=== PATIENT | female | born 1950 | race Caucasian/White ===

== ENCOUNTER → 2020-06-22 10:10 | Outpatient (BNVA) | payer MEDICARE, MEDICAID, SELFPAY | PROVIDERS: PCP Internal Medicine; Visit Provider Internal Medicine Cardiovascular Disease | DX: I10 Essential (primary) hypertension (principal); R60.0 Localized edema; R00.1 Bradycardia, unspecified | CPT/HCPCS: 93005; 99212 ==

== ENCOUNTER 2020-07-12 13:01 | Outpatient (REF) | payer MEDICARE, MEDICAID, SELFPAY ==
[2020-07-12 14:32] LABS: Anion Gap 12 (12-20); Blood Urea Nitrogen 21 mg/dL (9-16); Calcium 9.5 mg/dL (8.4-10.2); Carbon Dioxide 27 mmol/L (22-29); Chloride 107 mmol/L (96-108); Estimated Glomerular Filt Rate 58; Phosphorus 3.3 mg/dL (2.7-4.5); Potassium 4.4 mmol/L (3.3-5.1); Sodium 142 mmol/L (135-145)
[2020-07-12 16:40] LABS: Renal w Reflex Lab Use Only Order verified
== END 2020-07-12 13:02 | disposition home or self-care (01) ==
LOC: HO.LAB 13:01
PROVIDERS: PCP Internal Medicine; Visit Provider Internal Medicine Nephrology
DX: I12.9 Hypertensive chronic kidney disease with stage 1 through stage 4 chronic kidney disease, or unspecified chronic kidney disease (principal); N18.30 Chronic kidney disease, stage 3 unspecified; N17.9 Acute kidney failure, unspecified
CPT/HCPCS: 36415; 80051; 82310; 82565; 84100; 84520

== ENCOUNTER → 2020-10-26 10:01 | Outpatient (BNVA) | payer MEDICARE, MEDICAID, SELFPAY | PROVIDERS: PCP Internal Medicine; Referring Provider Internal Medicine; Visit Provider Internal Medicine Cardiovascular Disease | DX: R00.1 Bradycardia, unspecified (principal); I10 Essential (primary) hypertension | CPT/HCPCS: 93005; 99212 ==

== ENCOUNTER 2020-12-09 11:58 | Outpatient (REF) | payer MEDICARE, MEDICAID, SELFPAY ==
--- NOTE | ~2020-12-09 | MM_ITS ---
EXAMINATION: MM SCREENING DIGITAL BREAST TOMOSYNTHESIS, BILATERAL CLINICAL INFORMATION: Screening. Asymptomatic. The lifetime risk of breast cancer based on the Tyrer-Cuzick Model is 10%. COMPARISON: Mammography: 11/18/2019, 10/13/2018, 09/22/2018, 09/05/2017 TECHNIQUE: Digital breast tomosynthesis is performed in both the craniocaudal and mediolateral oblique views along with computer-aided detection (CAD). Synthesized 2D images are generated from the tomosynthesis. Additional right MLO view is provided. FINDINGS: The breasts are almost entirely fatty (ACR BI-RADS breast composition Category a). Background stromal markings are stable. There is no developing density or significant mass or architectural abnormality. No abnormal calcifications. Small circumscribed nodule again seen central 3:00 left breast. There are dermal lesions overlying the posterior inferior medial right breast the axilla are unremarkable. MM/MM tomosynthesis screening BI IMPRESSION: There are no significant changes from prior exams. ASSESSMENT: BI-RADS 2: Benign RECOMMENDATION: Routine annual mammography screening. This patient's information was entered into a reminder system with a target due date for their next mammogram.
== END 2020-12-09 11:59 | disposition home or self-care (01) ==
LOC: HO.MAMMO 11:58
PROVIDERS: PCP Internal Medicine; Visit Provider Internal Medicine
DX: Z12.31 Encounter for screening mammogram for malignant neoplasm of breast (principal)
CPT/HCPCS: 77063; 77067

== ENCOUNTER 2021-01-06 12:22 | Outpatient (REF) | payer MEDICARE, MEDICAID, SELFPAY ==
[2021-01-06 13:41] LABS: Alanine Aminotransferase 23 U/L (0-31); Albumin Level 4.5 g/dL (3.5-5.0); Alkaline Phosphatase 117 U/L (39-117); Anion Gap 12 (12-20); Aspartate Amino Transferase 23 U/L (5-31); Bilirubin Total 0.4 mg/dL (0.0-1.0); Blood Urea Nitrogen 19 mg/dL (9-16); Calcium 10.1 mg/dL (8.4-10.2); Carbon Dioxide 28 mmol/L (22-29); Chloride 107 mmol/L (96-108); Cholesterol 281 mg/dL; Estimated Glomerular Filt Rate 53; Glucose Fasting 105 mg/dL (60-99); HDL Cholesterol 35 mg/dL; LDL Cholesterol Calculated 185 mg/dl; Potassium 4.7 mmol/L (3.3-5.1); Sodium 142 mmol/L (135-145); Total Protein 7.3 g/dL (6.5-8.0); Triglycerides 305 mg/dL
== END 2021-01-06 12:23 | disposition home or self-care (01) ==
LOC: HO.LAB 12:22
PROVIDERS: PCP Internal Medicine; Visit Provider Nurse Practitioner Family
DX: Z13.1 Encounter for screening for diabetes mellitus (principal); E78.5 Hyperlipidemia, unspecified
CPT/HCPCS: 36415; 80053; 80061

== ENCOUNTER → 2021-02-23 10:33 | Outpatient (BNVA) | payer MEDICARE, MEDICAID, SELFPAY | PROVIDERS: PCP Internal Medicine; Referring Provider Internal Medicine; Visit Provider Internal Medicine Cardiovascular Disease | DX: R60.0 Localized edema (principal); E86.0 Dehydration; I10 Essential (primary) hypertension; R00.1 Bradycardia, unspecified; Z13.1 Encounter for screening for diabetes mellitus; Z12.11 Encounter for screening for malignant neoplasm of colon; Z88.6 Allergy status to analgesic agent; Z88.1 Allergy status to other antibiotic agents; Z88.2 Allergy status to sulfonamides; Z79.899 Other long term (current) drug therapy | CPT/HCPCS: 99212 ==

== ENCOUNTER 2021-08-08 11:57 | Outpatient (REF) | payer MEDICARE, MEDICAID, SELFPAY ==
[2021-08-08 12:17] LABS: MANUAL DIFF FLAG NO
[2021-08-08 13:17] LABS: Basophils Percent Auto 0.5 % (0-2); Eosinophils Absolute Auto 0.2 X10*3/uL (0.0-0.4); Eosinophils Percent Auto 1.8 % (0-4); Hematocrit 42.1 % (37.0-47.0); Hemoglobin 13.6 g/dl (12.0-16.0); Imm Gran Abs Auto 0.02 X10*3/uL (0.00-0.03); Imm Gran Pct Auto 0.2 % (0.0-0.4); Lymphocytes Absolute Auto 3.5 X10*3/uL (1.2-4.9); Lymphocytes Percent Auto 43.1 % (20-40); Mean Corpuscular HGB Conc 32.3 g/dl (31.0-35.0); Mean Corpuscular Hemoglobin 28.6 pg (27.0-33.0); Mean Corpuscular Volume 88.4 fL (80.0-98.0); Mean Platelet Volume 9.5 fL (9.4-12.3); Monocytes Absolute Auto 0.8 X10*3/uL (0.1-1.2); Monocytes Percent Auto 9.6 % (2-11); Neutrophils Absolute Auto 3.7 x10*3/uL (2.0-8.3); Neutrophils Percent Auto 44.8 % (45-73); Platelet Count 258 X10*3/uL (160-400); Red Blood Count 4.76 X10*6/uL (4.20-5.50); Red Cell Distribution Width 13.4 % (11.0-16.0); White Blood Count 8.2 X10*3/uL (4.8-10.8)
[2021-08-08 13:41] LABS: Alanine Aminotransferase 25 U/L (0-31); Albumin Level 4.4 g/dL (3.5-5.0); Alkaline Phosphatase 108 U/L (39-117); Anion Gap 12 (12-20); Aspartate Amino Transferase 19 U/L (5-31); Bilirubin Total 0.4 mg/dL (0.0-1.0); Blood Urea Nitrogen 20 mg/dL (9-16); Calcium 9.9 mg/dL (8.4-10.2); Carbon Dioxide 27 mmol/L (22-29); Chloride 107 mmol/L (96-108); Cholesterol 266 mg/dL; Estimated Glomerular Filt Rate 50; Glucose Fasting 89 mg/dL (60-99); HDL Cholesterol 32 mg/dL; LDL Cholesterol Calculated 170 mg/dl; Potassium 3.9 mmol/L (3.3-5.1); Sodium 142 mmol/L (135-145); Total Protein 7.4 g/dL (6.5-8.0); Triglycerides 321 mg/dL
[2021-08-08 14:01] LABS: Thyroid Stimulating Hormone 2.84 uIU/mL (0.32-4.0)
== END 2021-08-08 11:58 | disposition home or self-care (01) ==
LOC: HO.LAB 11:57
PROVIDERS: Absent Provider Internal Medicine; PCP Internal Medicine; Visit Provider Internal Medicine Nephrology
DX: Z00.00 Encounter for general adult medical examination without abnormal findings (principal); Z13.0 Encounter for screening for diseases of the blood and blood-forming organs and certain disorders involving the immune mechanism; I12.9 Hypertensive chronic kidney disease with stage 1 through stage 4 chronic kidney disease, or unspecified chronic kidney disease; N18.31 Chronic kidney disease, stage 3a
CPT/HCPCS: 36415; 80053; 80061; 84443; 85025

== ENCOUNTER → 2021-09-20 10:03 | Outpatient (BNVA) | payer MEDICARE, MEDICAID, SELFPAY | PROVIDERS: PCP Internal Medicine; Referring Provider Internal Medicine; Visit Provider Internal Medicine Cardiovascular Disease | DX: R00.1 Bradycardia, unspecified (principal); I10 Essential (primary) hypertension | CPT/HCPCS: 93005; 99212 ==

== ENCOUNTER → 2021-11-09 10:01 | Outpatient (BNVA) | payer MEDICARE, MEDICAID, SELFPAY | PROVIDERS: PCP Internal Medicine; Visit Provider Physician Assistant | DX: Z12.11 Encounter for screening for malignant neoplasm of colon (principal); Z86.010 Personal history of colon polyps | CPT/HCPCS: 99202 ==

== ENCOUNTER 2022-02-27 12:06 | Outpatient (REF) | payer MEDICARE, MEDICAID, SELFPAY ==
[2022-02-27 14:10] LABS: Anion Gap 18 (12-20); Blood Urea Nitrogen 18 mg/dL (9-16); Carbon Dioxide 27 mmol/L (22-29); Chloride 103 mmol/L (96-108); Estimated Glomerular Filt Rate 48; Potassium 4.7 mmol/L (3.3-5.1); Sodium 143 mmol/L (135-145)
== END 2022-02-27 12:07 | disposition home or self-care (01) ==
LOC: HO.LAB 12:06
PROVIDERS: PCP Internal Medicine; Visit Provider Internal Medicine Nephrology
DX: I12.9 Hypertensive chronic kidney disease with stage 1 through stage 4 chronic kidney disease, or unspecified chronic kidney disease (principal); N18.31 Chronic kidney disease, stage 3a
CPT/HCPCS: 36415; 80051; 82310; 82565; 84520

== ENCOUNTER → 2022-04-09 09:03 | Outpatient (BNVA) | payer MEDICARE, MEDICAID, SELFPAY | PROVIDERS: PCP Internal Medicine; Referring Provider Internal Medicine; Visit Provider Physician Assistant | DX: Z86.010 Personal history of colon polyps (principal) | CPT/HCPCS: 99212 ==

== ENCOUNTER → 2022-05-28 14:59 | Outpatient (BNVA) | payer MEDICARE, MEDICAID, SELFPAY | PROVIDERS: PCP Internal Medicine; Referring Provider Internal Medicine; Visit Provider Internal Medicine Cardiovascular Disease | DX: I10 Essential (primary) hypertension (principal); R00.1 Bradycardia, unspecified | CPT/HCPCS: 93005; 99212 ==

== ENCOUNTER 2022-07-30 12:56 | Outpatient (REF) | payer MEDICARE, MEDICAID, SELFPAY ==
--- NOTE | ~2022-07-30 | MM_ITS ---
EXAMINATION: MM SCREENING DIGITAL BREAST TOMOSYNTHESIS, BILATERAL CLINICAL INFORMATION: Screening. Asymptomatic. The lifetime risk of breast cancer based on the Tyrer-Cuzick Model is 11%. COMPARISON: Mammography: 12/09/2020, 11/18/2019, 10/13/2018, 09/22/2018 TECHNIQUE: Digital breast tomosynthesis is performed in both the craniocaudal and mediolateral oblique views along with computer-aided detection (CAD). Synthesized 2D images are generated from the tomosynthesis. Additional bilateral CC views are provided. FINDINGS: The breasts are almost entirely fatty (ACR BI-RADS breast composition Category a). Background stromal and fibroglandular densities are stable. No significant mass or architectural abnormality or developing density. No abnormal calcifications. The axilla are unremarkable. There are a few dermal lesions overlying the right upper lower breast. No significant changes. MM/MM tomosynthesis screening BI IMPRESSION: No mammographic evidence of malignancy. ASSESSMENT: BI-RADS 2: Benign RECOMMENDATION: Routine annual mammography screening. This patient's information was entered into a reminder system with a target due date for their next mammogram.
== END 2022-07-30 12:57 | disposition home or self-care (01) ==
LOC: HO.MAMMO 12:56
PROVIDERS: PCP Internal Medicine; Visit Provider Internal Medicine
DX: Z12.31 Encounter for screening mammogram for malignant neoplasm of breast (principal)
CPT/HCPCS: 77063; 77067

== ENCOUNTER 2022-10-15 13:56 | Outpatient (REF) | payer MEDICARE, MEDICAID, SELFPAY ==
[2022-10-15 14:13] LABS: MANUAL DIFF FLAG NO
[2022-10-15 14:27] LABS: Basophils Absolute Auto 0.1 X10*3/uL (0.0-0.2); Basophils Percent Auto 0.6 % (0-2); Eosinophils Absolute Auto 0.2 X10*3/uL (0.0-0.4); Eosinophils Percent Auto 2.9 % (0-4); Hematocrit 40.7 % (37.0-47.0); Hemoglobin 13.2 g/dl (12.0-16.0); Imm Gran Abs Auto 0.04 X10*3/uL (0.00-0.03); Imm Gran Pct Auto 0.5 % (0.0-0.4); Lymphocytes Absolute Auto 3.3 X10*3/uL (1.2-4.9); Lymphocytes Percent Auto 39.5 % (20-40); Mean Corpuscular HGB Conc 32.4 g/dl (31.0-35.0); Mean Corpuscular Volume 89.5 fL (80.0-98.0); Mean Platelet Volume 9.5 fL (9.4-12.3); Monocytes Absolute Auto 0.7 X10*3/uL (0.1-1.2); Monocytes Percent Auto 8.1 % (2-11); Neutrophils Absolute Auto 4.1 x10*3/uL (2.0-8.3); Neutrophils Percent Auto 48.4 % (45-73); Platelet Count 268 X10*3/uL (160-400); Red Blood Count 4.55 X10*6/uL (4.20-5.50); Red Cell Distribution Width 13.6 % (11.0-16.0); White Blood Count 8.4 X10*3/uL (4.8-10.8)
[2022-10-15 15:35] LABS: Alanine Aminotransferase 16 U/L (0-31); Albumin Level 4.1 g/dL (3.5-5.0); Alkaline Phosphatase 130 U/L (39-117); Anion Gap 12 (12-20); Aspartate Amino Transferase 19 U/L (5-31); Bilirubin Total 0.3 mg/dL (0.0-1.0); Blood Urea Nitrogen 18 mg/dL (9-16); Calcium 10.1 mg/dL (8.4-10.2); Carbon Dioxide 28 mmol/L (22-29); Chloride 108 mmol/L (96-108); Cholesterol 268 mg/dL; Estimated Glomerular Filt Rate > 60; Glucose Fasting 97 mg/dL (60-99); HDL Cholesterol 36 mg/dL; LDL Cholesterol Calculated 176 mg/dl; Potassium 4.9 mmol/L (3.3-5.1); Sodium 143 mmol/L (135-145); Total Protein 7.1 g/dL (6.5-8.0); Triglycerides 282 mg/dL
[2022-10-15 15:52] LABS: Thyroid Stimulating Hormone 2.08 uIU/mL (0.32-4.0)
== END 2022-10-15 13:57 | disposition home or self-care (01) ==
LOC: HO.LAB 13:56
PROVIDERS: PCP Internal Medicine; Visit Provider Internal Medicine
DX: N28.9 Disorder of kidney and ureter, unspecified (principal); E78.5 Hyperlipidemia, unspecified; E03.9 Hypothyroidism, unspecified; D64.9 Anemia, unspecified
CPT/HCPCS: 36415; 80053; 80061; 84443; 85025

== ENCOUNTER 2022-11-26 10:01 | Day surgery (SDC) | payer MEDICARE, MEDICAID, SELFPAY ==
[2022-11-26 10:47] VITALS: BMI 32.9
[2022-11-26 10:54] VITALS: BP 150/51; PULSE 53; RESP 16; TEMP 36.6; O2SAT 99
--- NOTE | 2022-11-26 10:59 | HO.ANESPROP2 ---
[facility] Active Problems Active Problems: All Active Problems (Updated 11/26/22 @ 10:42 by Sabrina Ruiz RN) Leg edema (Acute) Sinus bradycardia (Acute) Hyperlipidemia (Acute) Legally blind (Acute) CKD (chronic kidney disease) stage 3, GFR 30-59 ml/min (Acute) BMI 32.0-32.9,adult (Acute) Adult general medical exam (Acute) Hypertension (Acute) History of colon polyps (Acute) Screening for breast cancer (Acute) Left leg swelling (Acute) Encounter for screening mammogram for malignant neoplasm of breast (Acute) Leg pain (Acute) Post-menopausal (Acute) Screening for colon cancer (Acute) Screening for diabetes mellitus (Acute) Hypertension (Acute) Past Medical History Medical History (Updated 11/26/22 @ 10:42 by Sabrina Ruiz RN) Anxiety Arthritis Cervical cancer screening Elevated cholesterol Hypertension Kidney disease Post-menopausal Screening for colon cancer Screening for diabetes mellitus Family History Family History Father Hodgkin disease Mother Acute CVA (cerebrovascular accident) Sister Breast cancer Family history of problems with anesthesia: No Surgical History Surgical History H/O bilateral oophorectomy History of blepharoplasty History of colonoscopy History of removal of cyst History of uterine fibroid Hx of bilateral cataract extraction Hx of eye surgery History of Problems with Anesthesia: No Social History Social History Household Members Other:: lives alone-disabled/ elderly community Housing: Apartment Alcohol intake: never Patient Tobacco Use Status: Never used Tobacco e-Cigarette/Vaping Use: Never Used Second Hand Smoke Exposure: No Use of substances other than those prescribed or required for medical reasons: No Are you DNR?: No Advance Directives: No Advance Directives Information Provided: Yes service: No Current occupational status: disabled Cognitive needs: Yes (cane) Hearing needs: No Vision needs: Yes (Glasses) Meds Allergies Allergy/AdvReac Type Severity Reaction Status Date / Time tramadol [TRAMADOL] Allergy Severe ANAPHYLAXIS Verified 11/26/22 10:37 ciprofloxacin [From CIPRO] Allergy Intermediate RENAL Verified 11/26/22 10:37 FUNCTION ISSUES Sulfa (Sulfonamide Allergy Unknown Unknown Verified 11/26/22 10:37 Antibiotics) Home Medications Medication Instructions Recorded Confirmed Last Taken Type ascorbate calcium (vitamin C) 500 500 mg PO DAILY 09/20/21 11/26/22 Unknown History mg tablet clonidine HCl 0.1 mg tablet 0.1 mg PO BID 09/20/21 11/26/22 11/26/22 07:30 History fluoxetine 20 mg capsule (Prozac) 20 mg PO DAILY 11/26/22 11/26/22 Unknown History Exam Exam Date and Time: November 26, 2022 1059 Height,Weight and Vital Signs: Height 5 ft 2 in Weight 81.647 kg Airway Mallampati Class: II (missing a coup,e laterally, denies any loose) TM Dist: >3cm Neck ROM: Full Heart: rrr Lungs: cta Assessment and Plan Assessment Anesthesia Assessment: Anesthesia Plan Discussed and Chart Reviewed Final Anesthetic Review Family History of Problems with Anesthesia: No History of Problems with Anesthesia: No NPO: Yes ASA Class: II Final Preanesthetic Review: No Changes in Pt Med Stat, Meds/Allgs Chart Reviewed and Consent Obtained/Reviewed Patient Risk: Intermediate Procedure Risk: Intermediate Anesthetic Plan Anesthetic Plan: MAC: Disposition: Standard PACU
[2022-11-26] MEDS: Lactated Ringers 1,000 ML 50 ML IVCONT (11:18)
--- NOTE | 2022-11-26 11:22 | MHC.SHP ---
Pre-Procedural Eval Section A Date of Service: 11/26/22 The patient is an INPATIENT: No The History & Physical has been completed within 30 days and I have reviewed it.: No Section B Chief Complaint: Personal history of colonic polyps Relevant Family History (Specify if Yes): No Relevant Social History: None Present Medications: see Short Stay Collaborative assessment Medical History: Significant History (Hypertension Post-menopausal) History of Previous Operations: Relevant previous surgery/procedure and date(s) (H/O bilateral oophorectomy History of blepharoplasty History of colonoscopy History of removal of cyst History of uterine fibroid) Allergies: Allergies Allergy/AdvReac Type Severity Reaction Status Date / Time tramadol [TRAMADOL] Allergy Severe ANAPHYLAXIS Verified 11/26/22 10:37 ciprofloxacin [From CIPRO] Allergy Intermediate RENAL Verified 11/26/22 10:37 FUNCTION ISSUES Sulfa (Sulfonamide Allergy Unknown Unknown Verified 11/26/22 10:37 Antibiotics) Review of Systems Sugical H&P ROS: Negative: Constitution, Cardiovascular, Respiratory and Gastrointestinal Exam Surgical H&P Exam: Normal: Heart, Normal: Lungs, Normal: Extremities and Normal: Abdomen Plan Diagnosis/Plan: Unchanged I have reviewed the history and physical and performed a pertinent physical examination on my patient. No changes have occurred unless specified. Time Spent With Patient Time: Total time managing care of this patient today ____ minutes.
--- NOTE | 2022-11-26 12:01 | W.PM.OPN ---
Operative Note Operative Note Date of Service: 11/26/22 Narrative: COLONOSCOPY TILL CECUM WITH BIOPSIES Pre-op diagnosis: colon cancer screening, history of colon polyps Post-op diagnosis:? Colon polyp, diverticulosis, hemorrhoids Endoscopist:? Manuel Navarro MD Anesthesia:?MAC Consent: Indications for the procedure and potential complications of bleeding, perforation, reaction to medications and missed diagnosis were discussed with the patient and informed consent was obtained. Instrument: Olympus PCF H 190 L variable stiffness pediatric colonoscope Monitoring: Vital signs and clinical assessment, intermittent blood pressure monitoring, continuous EKG monitoring, Pulse oximetry and Carbon Dioxide monitoring were done throughout the procedure. Please see anesthesia flowsheet. Colon withdrawl time was 12 minutes. Procedure: The patient was placed in the left lateral decubitis position and pre-procedure medications were administered. After a digital rectal examination of the ano-rectum, the video colonoscope was inserted into the rectum and advanced through the colon to the cecum. The colonoscope was slowly withdrawn in a retrograde panoramic fashion and the colon mucosa was carefully examined including a retroflexed view of the rectum. Findings and interventions are described below. Procedure Difficulty: Without difficulty Findings: Terminal Ileum: Not evaluated Cecum: Normal Ascending Colon: Normal Transverse Colon: Normal Descending Colon: Moderate diverticulosis Sigmoid Colon: One 3-4 mm diminutive appearing polyp - removed with a cold biopsy. Moderate diverticulosis Rectum: Normal Ano-rectum: Moderate internal hemorrhoids Colon preparation: Excellent Impression and Post Procedure Diagnosis: Colonoscopy Findings: One dimutive appearing polyp removed Moderate diverticulosis seen in the left colon Moderate hemorrhoids on retroflexed exam. Plan: Await pathology results Patient has an appointment on 12/10/22 in the GI Clinic with ANAT Broussard. Repeat Colonoscopy interval based on path results - in 5 years if polyps are adenomatous and due to a history of adenomatous colon polyps. Above findings were reviewed with the patient and colon polyps and diverticulosis handouts were given in the discharge area
[2022-11-26 12:33] VITALS: BP 98/47; PULSE 55; RESP 16; TEMP 36.1; O2SAT 97
[2022-11-26 12:48] VITALS: BP 111/59; PULSE 57; RESP 16; TEMP 36.5; O2SAT 99
== END 2022-11-26 13:55 | disposition home or self-care (01) ==
PROVIDERS: PCP Internal Medicine; Visit Provider Internal Medicine Gastroenterology
PROC: 0DJD8ZZ Inspection of Lower Intestinal Tract, Via Natural or Artificial Opening Endoscopic (ICD-10-PCS; CPT 45378; principal; 2022-11-26 11:50)
DX: Z12.11 Encounter for screening for malignant neoplasm of colon (principal); K63.5 Polyp of colon; K57.30 Diverticulosis of large intestine without perforation or abscess without bleeding; K64.8 Other hemorrhoids; Z86.010 Personal history of colon polyps
CPT/HCPCS: 45380; 88305

== ENCOUNTER → 2022-11-26 10:01 | Outpatient (BNV) | payer MEDICARE, MEDICAID, SELFPAY | PROVIDERS: PCP Internal Medicine; Visit Provider Internal Medicine Gastroenterology | DX: Z12.11 Encounter for screening for malignant neoplasm of colon (principal); Z86.010 Personal history of colon polyps; D12.5 Benign neoplasm of sigmoid colon; K57.30 Diverticulosis of large intestine without perforation or abscess without bleeding; K64.8 Other hemorrhoids | CPT/HCPCS: 45380 ==

== ENCOUNTER 2022-12-10 10:03 | Outpatient (AMB) | payer MEDICARE, MEDICAID, SELFPAY ==
--- NOTE | 2022-12-10 10:11 | A.OFFVIS_ITS ---
Intake Vital Signs 12/10/22 10:15 Height 5 ft 2 in Weight 170 lb BMI 31.1 BP 138/65 Blood Pressure Location Lt brachial Position Sitting Pulse 43 L Intake Visit Reasons: S/p colon-Ramon Intake Note: Patient follow up for Colonoscopy results. Patient denies any GI issues. Fraud Prevention Analyst Required: No Accompanied by: Self / Same As Patient Allergies tramadol [TRAMADOL] Allergy (Severe, Verified 12/10/22 10:09) ANAPHYLAXIS ciprofloxacin [From CIPRO] Allergy (Intermediate, Verified 12/10/22 10:09) RENAL FUNCTION ISSUES Sulfa (Sulfonamide Antibiotics) Allergy (Unknown, Verified 12/10/22 10:09) Unknown Medication List - Last Reconciled 12/10/22 by Arlyn Parnell PA-C amlodipine 10 mg PO DAILY ascorbate calcium (vitamin C) 500 mg PO DAILY aspirin (Adult Low Dose Aspirin) 81 mg PO DAILY calcium carbonate-vitamin D3 500 mg-5 mcg (200 unit) (Calcium 500 + D) 1 tab PO DAILY clonidine HCl 0.1 mg PO BID fluoxetine (Prozac) 20 mg PO DAILY furosemide 40 mg PO DAILY metoprolol succinate ER 100 mg PO DAILY 90 days multivitamin 1 tab PO QAM pravastatin 20 mg PO DAILY HPI HPI Comments History of Present Illness Details A 72-year-old female with personal history of colon polyps follows up after recent colonoscopy She tolerated procedure well, she was very happy with MiraLax Gatorade prep. Reviewed procedure report and pathology She has no GI or general complaints No nausea, vomiting, hematemesis, hematochezia fever or chills PFSH Medical History (Updated 12/10/22 @ 10:39 by Arlyn Parnell PA-C) Anxiety Arthritis Cervical cancer screening Elevated cholesterol Hypertension Kidney disease Post-menopausal Screening for colon cancer Screening for diabetes mellitus Surgical History H/O bilateral oophorectomy History of blepharoplasty History of colonoscopy History of removal of cyst History of uterine fibroid Hx of bilateral cataract extraction Hx of eye surgery Family History Father Hodgkin disease Mother Acute CVA (cerebrovascular accident) Sister Breast cancer Social History Household Members Other:: lives alone-disabled/ elderly community Housing: Apartment Alcohol intake: never Patient Tobacco Use Status: Never used Tobacco e-Cigarette/Vaping Use: Never Used Second Hand Smoke Exposure: No service: No Current occupational status: disabled Cognitive needs: Yes (cane) Hearing needs: No Vision needs: Yes (Glasses) Review of Systems Const All systems reviewed & are unremarkable except as noted in HPI and below Physical Exam Vital Signs: Last Vital Signs Pulse 43 L 12/10/22 10:15 BP 138/65 12/10/22 10:15 BMI result Body Mass Index 31.1 Const General: cooperative and comfortable Orientation/consciousness: patient oriented x3 Limitations: other limitations (Vision impaired) Neuro General: patient oriented x3 Psych Appearance: grossly normal and well kempt Mental Status: mental status grossly normal Speech and movement: Normal speech and movement present Affect: normal affect Attitude: cooperative Thought process: Normal thought process present Thought content: Normal thought content present Judgement: Good judgement present (Psych) Results Reviewed Results Reviewed: mpression and Post Procedure Diagnosis: Colonoscopy Findings: One dimutive appearing polyp removed Moderate diverticulosis seen in the left colon Moderate hemorrhoids on retroflexed exam. Plan: Await pathology results Patient has an appointment on 12/10/22 in the GI Clinic with ANAT Broussard. Repeat Colonoscopy interval based on path results - in 5 years if polyps are adenomatous and due to a history of adenomatous colon polyps. Above findings were reviewed with the patient and colon polyps and diverticulosis handouts were given in the discharge area Name:?Krista Katz Age/Sex: 72/F Attending: Manuel Navarro MD : 1950 Submitted by: Manuel Navarro MD Copies to: Jose Navarrete MD MR #: [id number] ? Status: [facility] Collected: 11/26/22 Location: [facility] Received: 11/26/22 Diagnosis Colon, sigmoid, polypectomy:? Colonic mucosa with prominent lymphoid aggregate; no dysplasia seen. Clinical History Pre-Op Dx:? Colon cancer screening, hx/o colon polyps Post-Op Dx:? Colon polyp, diverticulosis, hemorrhoids Assessment & Plan Assessment & Plan (1) History of colon polyps: Comment: Sigmoid polyp adenoma 2012- repeat colon- 2022- no adenoma Code(s): Z86.010 - Personal history of colonic polyps Plan: Repeat asymptomatic colonoscopy 5 years (2) Diverticulosis of colon: Comment: Review diverticulitis ER prior Review high-fiber diet Code(s): K57.30 - Diverticulosis of large intestine without perforation or abscess without bleeding Plan: HFD ER protocol Plan High-fiber diet Diverticulitis ER protocol Medications: Discontinued fluoxetine 20 mg PO DAILY 90 caps 0RF Patient Instructions: Very pleasant visual impaired 72-year-old female follows up after recent colonoscopy Repeat asymptomatic colonoscopy 5 years Diverticulosis/diverticulitis ER protocol Maintain high-fiber diet Call with concerns Coding Level of Care Code Est Pt Level 3 (83211) Diagnoses History of colon polyps Z86.010 Diverticulosis of colon K57.30 Time Spent (min) 25
[2022-12-10 10:15] VITALS: BP 138/65; PULSE 43; BMI 31.1
== END 2022-12-10 12:28 | disposition home or self-care (01) ==
PROVIDERS: Visit Provider Physician Assistant
DX: Z86.010 Personal history of colon polyps (principal); K57.30 Diverticulosis of large intestine without perforation or abscess without bleeding; D12.5 Benign neoplasm of sigmoid colon; Z71.2 Person consulting for explanation of examination or test findings
CPT/HCPCS: 99213

== ENCOUNTER → 2022-12-10 10:03 | Outpatient (BNVA) | payer MEDICARE, MEDICAID, SELFPAY | PROVIDERS: Visit Provider Physician Assistant | DX: K57.30 Diverticulosis of large intestine without perforation or abscess without bleeding (principal); Z86.010 Personal history of colon polyps | CPT/HCPCS: 99212 ==

== ENCOUNTER 2022-12-11 15:00 | Outpatient (AMB) | payer MEDICARE, MEDICAID, SELFPAY ==
[2022-12-11 15:04] VITALS: BP 120/70; PULSE 46; BMI 31.9
--- NOTE | 2022-12-11 15:04 | A.OFFVIS_ITS ---
Intake Vital Signs 12/11/22 15:04 Height 5 ft 2 in Weight 174 lb 2.643 oz BMI 31.9 BP 120/70 Blood Pressure Location Lt brachial Position Sitting Pulse 46 L Intake Visit Reasons: 6M follow up Intake Note: 6 month f/u Room Service Waiter/Waitress Required: No Allergies tramadol [TRAMADOL] Allergy (Severe, Verified 12/11/22 15:14) ANAPHYLAXIS ciprofloxacin [From CIPRO] Allergy (Intermediate, Verified 12/11/22 15:14) RENAL FUNCTION ISSUES Sulfa (Sulfonamide Antibiotics) Allergy (Unknown, Verified 12/11/22 15:14) Unknown Medication List - Last Reconciled 12/11/22 by Monika Loco, BLUNGER LOADER-C amlodipine 10 mg PO DAILY ascorbate calcium (vitamin C) 500 mg PO DAILY aspirin (Adult Low Dose Aspirin) 81 mg PO DAILY calcium carbonate-vitamin D3 500 mg-5 mcg (200 unit) (Calcium 500 + D) 1 tab PO DAILY clonidine HCl 0.1 mg PO BID fluoxetine (Prozac) 20 mg PO DAILY furosemide 40 mg PO DAILY metoprolol succinate ER 100 mg PO DAILY 90 days multivitamin 1 tab PO QAM pravastatin 20 mg PO DAILY HPI 6M follow up HPI Details Krista is a 72-year-old female past medical history of obesity, hypertension, diabetes, hyperlipidemia, chronic kidney disease, sinus bradyca rdia who presents for follow-up. Today she reports she has been feeling very well since her last visit 6 months ago. She denies any lightheadedness, presyncope, syncope, falls. She reports good activity tolerance. She recently traveled to [place] and had no concerning symptoms. 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 She has no chest discomfort at rest or with activity. No shortness of breath, PND, orthopnea or edema. She takes her meds as directed. [facility] Medical History Anxiety Arthritis Cervical cancer screening Elevated cholesterol Hypertension Kidney disease Post-menopausal Screening for colon cancer Screening for diabetes mellitus Surgical History H/O bilateral oophorectomy History of blepharoplasty History of colonoscopy History of removal of cyst History of uterine fibroid Hx of bilateral cataract extraction Hx of eye surgery Family History Father Hodgkin disease Mother Acute CVA (cerebrovascular accident) Sister Breast cancer Social History Household Members Other:: lives alone-disabled/ elderly community Housing: Apartment Alcohol intake: never Patient Tobacco Use Status: Never used Tobacco e-Cigarette/Vaping Use: Never Used Second Hand Smoke Exposure: No service: No Current occupational status: disabled Cognitive needs: Yes (cane) Hearing needs: No Vision needs: Yes (Glasses) Review of Systems Const All systems reviewed & are unremarkable except as noted in HPI and below ENT Reports dizziness Card Denies chest pain, Denies chest pain at rest, Denies chest pain with activity, Denies rapid heart rate, Denies pedal edema, Denies edema, Denies leg edema, Denies lightheadedness, Denies palpitations, Denies dyspnea, Denies dyspnea on exertion and Denies orthopnea Resp Denies cough, Denies dyspnea and Denies dyspnea on exertion GI Denies hematochezia and Denies change in stool character Musc Denies abnormal gait, Reports limited range of motion, Reports muscle cramps, Denies muscle weakness, Denies numbness, Denies radiating pain into limb, Denies stiffness and Denies tingling Neuro Denies abnormal gait, Reports dizziness, Denies numbness and Denies tingling Endo Denies palpitations Physical Exam Vital Signs: Last Vital Signs Pulse 46 L 12/11/22 15:04 BP 120/70 12/11/22 15:04 BMI result Body Mass Index 31.9 Const Other: Blind General: cooperative, healthy appearing, comfortable and no acute distress Orientation/consciousness: patient oriented x3 Neck Neck: Yes normal visual inspection Resp Effort & Inspection: normal respiratory effort Auscultation: clear to auscultation bilaterally, no crackles, no rales, no rhonchi and no wheezes Cardio Jugular venous distension: no JVD Rate: regular rate Rhythm: regular rhythm Heart sounds: S1 normal heart sound present, S2 normal heart sound present, no murmurs and no rubs Neuro General: patient oriented x3 Extrem General: Yes normal to inspection Psych Appearance: grossly normal Mental Status: mental status grossly normal Speech and movement: Normal speech and movement present Office Procedures EKG Details: Today, read by me, sinus bradycardia, low voltage QRS in the precordial leads, likely related to body habitus, rate 46, QTC 411 milliseconds. [id number], Complete Assessment & Plan Assessment & Plan (1) Sinus bradycardia: Comment: Stable and she is asymptomatic. Code(s): R00.1 - Bradycardia, unspecified Plan: History of sinus bradycardia, asymptomatic. For her blood pressure she is on clonidine and metoprolol which contribute to her low heart rates. EKG done today showing sinus bradycardia, rate 46. In looking back at heart rates over the last 2 years it seems her heart rate typically runs 40s to 50s. She denies any dizziness, presyncope, syncope, falls. She has good activity tolerance. She describes no change in symptoms in the last 6 months. At this time will continue on current med management. If she starts to develop symptoms or lower heart rates then will plan to reduce metoprolol dose. Patient is aware of this and will notify this office or her PCP as warranted. Cardiology office visit in 6 months, sooner if needed (2) Hypertension: Code(s): I10 - Essential (primary) hypertension Plan: Well controlled at present time. [place] blood pressure goal less than 130/85. Continue on current med management including clonidine, amlodipine, metoprolol. (3) Hyperlipidemia: Code(s): E78.5 - Hyperlipidemia, unspecified Plan: [place] LDL goal less than 70 in patient with diabetes. Followed by her PCP. I do see fasting lipid profile done on 10/15/2022 showing LDL 176. She is on low- dose pravastatin. Recommend this be changed to a higher potency statin for better LDL lowering affect. Will forward this note to her PCP Medications: Discontinued fluoxetine 20 mg PO DAILY 90 caps 0RF Coding Level of Care Code Est Pt Level 3 (77023) Diagnoses Sinus bradycardia R00.1 Hypertension I10 Hyperlipidemia E78.5 CPT Codes EKG - CPT: 98865-[id number], Complete ([id number]) Time Spent (min) 26 Comment Chart review, documentation, interview, assess
== END 2022-12-11 15:48 | disposition home or self-care (01) ==
PROVIDERS: Visit Provider Nurse Practitioner Family
DX: R00.1 Bradycardia, unspecified (principal); I10 Essential (primary) hypertension; E78.5 Hyperlipidemia, unspecified
CPT/HCPCS: 93010; 99213

== ENCOUNTER → 2022-12-11 15:00 | Outpatient (BNVA) | payer MEDICARE, MEDICAID, SELFPAY | PROVIDERS: Visit Provider Nurse Practitioner Family | DX: R00.1 Bradycardia, unspecified (principal); I10 Essential (primary) hypertension; E78.5 Hyperlipidemia, unspecified | CPT/HCPCS: 93005; 99212 ==

== ENCOUNTER 2023-02-12 09:56 | Outpatient (AMB) | payer MEDICARE, MEDICAID, SELFPAY ==
[2023-02-12 10:10] VITALS: BP 136/64; PULSE 45; O2SAT 98; BMI 33.7
--- NOTE | 2023-02-12 10:10 | MHC.PC.OV ---
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 Accompanied by: Self / Same As Patient Allergies tramadol [TRAMADOL] Allergy (Severe, Verified 02/12/23 10:11) ANAPHYLAXIS ciprofloxacin [From CIPRO] Allergy (Intermediate, Verified 02/12/23 10:11) RENAL FUNCTION ISSUES Sulfa (Sulfonamide Antibiotics) Allergy (Unknown, Verified 02/12/23 10:11) Unknown Medication List - Last Reconciled 02/12/23 by Jose Navarrete MD amlodipine 10 mg PO DAILY ascorbate calcium (vitamin C) 500 mg PO DAILY aspirin (Adult Low Dose Aspirin) 81 mg PO DAILY calcium carbonate-vitamin D3 500 mg-5 mcg (200 unit) (Calcium 500 + D) 1 tab PO DAILY clonidine HCl 0.1 mg PO BID fluoxetine (Prozac) 20 mg PO DAILY furosemide 40 mg PO DAILY metoprolol succinate ER 100 mg PO DAILY 90 days multivitamin 1 tab PO QAM pravastatin 20 mg PO DAILY Tobacco use date assessed: 07/11/22 Fall risk assessment: No Falls in past year Last assessed Fall Risk: 02/12/23 Dental Screening Dental Screen Date: 02/12/23 Did you have a dental visit in the last 12 months?: No Did you have a dental problem in the last 6 months where you did not have access to dental care?: No Was dental information given to patient?: Patient has dentist HPI 3M f/u HPI Details HTN hyperlipidemia and depression; stable on rx; due for labs PFSH Medical History Arthritis Anxiety Kidney disease Elevated cholesterol Cervical cancer screening Post-menopausal Screening for colon cancer Screening for diabetes mellitus Hypertension Surgical History Hx of bilateral cataract extraction Hx of eye surgery History of colonoscopy History of uterine fibroid H/O bilateral oophorectomy History of blepharoplasty History of removal of cyst Family History Father Hodgkin disease Mother Acute CVA (cerebrovascular accident) Sister Breast cancer Social History Household Members Other:: lives alone-disabled/ elderly community Housing: Apartment Alcohol intake: never Patient Tobacco Use Status: Never used Tobacco e-Cigarette/Vaping Use: Never Used Second Hand Smoke Exposure: No service: No Current occupational status: disabled Cognitive needs: Yes (cane) Hearing needs: No Vision needs: Yes (Glasses) Questionnaire PHQ-9 Over the last 2 weeks, how often have you been bothered by any of the following problems? 1. Little interest or pleasure in doing things: not at all 2. Feeling down, depressed, or hopeless: not at all 3. Trouble falling or staying asleep, or sleeping too much: not at all 4. Feeling tired or having little energy: not at all 5. Poor appetite or overeating: not at all 6. Feeling bad about yourself - or that you are a failure or have let yourself or your family down: not at all 7. Trouble concentrating on things, such as reading the newspaper or watching television: not at all 8. Moving or speaking so slowly that other people could have noticed. Or the opposite - being so fidgety or restless that you have been moving around a lot more than usual: not at all 9. Thoughts that you would be better off or of hurting yourself in some way: not at all Total score: 0 Depression Screening Interpretation: Negative Depression Screening Done: Yes 45218 - PHQ-9 Billing: Yes Source: Developed by Drs. North Cazares, Vladimir Kee and colleagues, with an educational hernandez from [employer]. Thrive Questionnaire Date Thrive assessed: 07/11/22 AUDIT C Alcohol Use Questionnaire (AUDIT-C) 1. How often do you have a drink containing alcohol?: Never 3. How often do you have six or more drinks on one occasion?: Never Total Score: 0 Score Reviewed/Action Taken: Yes SAGAR-7 AMB Questionnaire SAGAR-7 Date SAGAR - 7 assessed: 06/06/22 Source: Developed by Ann Bridges Kurt Kroenke and colleagues, with an educational hernandez from [employer]. Review of Systems Const Denies chills, Denies headache(s) and Denies weight loss ENT Denies headache(s) Card Denies chest pain, Denies syncope, Denies irregular heart rhythm and Denies dyspnea Resp Denies chest congestion, Denies cough and Denies dyspnea GI Denies abdominal pain, Denies change in stool character, Denies nausea and Denies vomiting Musc Denies deformity and Denies joint swelling Neuro Denies syncope and Denies headache(s) Physical exam (Primary Care) Vital Signs: Last Vital Signs Pulse 45 L 02/12/23 10:10 BP 136/64 02/12/23 10:10 Pulse Ox 98 02/12/23 10:10 Oxygen Delivery Method Room Air 02/12/23 10:10 BMI result Body Mass Index 33.7 Tobacco/Smoking Status: Tobacco use Status Tobacco use date assessed 07/11/22 02/12/23 10:11 Patient Tobacco Use Status Never used Tobacco 02/12/23 10:11 e-Cigarette/Vaping Use Never Used 02/12/23 10:11 PHQ-9: PHQ-9 Score PHQ-9: Total score 0 02/12/23 10:11 Depression Screening Interpretation: Negative Thrive Assessment: Date of Thrive Assessment Date Thrive assessed 07/11/22 02/12/23 10:11 Const General: cooperative, comfortable, no acute distress and alert Neck Neck: Yes no lymphadenopathy Thyroid: Thyroid normal Resp Effort & Inspection: normal respiratory effort Auscultation: clear to auscultation bilaterally Percussion: percussion normal Cardio Jugular venous distension: no JVD Palpation: normal PMI Rate: regular rate Rhythm: regular rhythm Heart sounds: S1 normal heart sound present and S2 normal heart sound present GI Inspection: Yes normal to inspection Palpation (GI): No hepatosplenomegaly present Skin General skin exam: no rashes or lesions noted Extrem General: Yes no clubbing, cyanosis or edema Assessment and Plan Assessment & Plan (1) Hyperlipidemia: Code(s): E78.5 - Hyperlipidemia, unspecified Plan: stable; same rx (2) Hypertension: Code(s): I10 - Essential (primary) hypertension Plan: stable; same rx (3) Depression: Code(s): F32.A - Depression, unspecified Plan: stable; compliant Orders: Orders Lipid Panel Today E78.5 - Hyperlipidemia, unspecified Comprehensive [place]. Panel Fast Today N28.9 - Disorder of kidney and ureter, unspecified Thyroid Stimulating Hormone Today E03.9 - Hypothyroidism, unspecified Complete Blood Count Auto Diff Today D64.9 - Anemia, unspecified Coding Level of Care Code Est Pt Level 4 (23254) Diagnoses Hyperlipidemia E78.5 Hypertension I10 Depression F32.A
== END 2023-02-12 10:25 | disposition home or self-care (01) ==
PROVIDERS: PCP Internal Medicine; Visit Provider Internal Medicine
DX: E78.5 Hyperlipidemia, unspecified (principal); I10 Essential (primary) hypertension; F32.A Depression, unspecified
CPT/HCPCS: 99214

== ENCOUNTER 2023-03-13 08:55 | Outpatient (AMB) | payer MEDICARE, MEDICAID, SELFPAY ==
--- NOTE | 2023-03-13 09:03 | AM.OFFVISMDC ---
Intake Vital Signs 03/13/23 09:05 Height 5 ft 2 in Weight 189 lb BMI 34.6 BP 130/66 Blood Pressure Location Lt brachial Position Sitting Pulse 42 L Pulse Source Pulse Oximeter Pulse Oximetry (%) 98 Oxygen Delivery Method Room Air Intake Visit Reasons: SAWV (rescheduled) Intake Note: Patient is here for an Annual Wellness Visit. 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 Accompanied by: Self / Same As Patient Allergies tramadol [TRAMADOL] Allergy (Severe, Verified 03/13/23 09:05) ANAPHYLAXIS ciprofloxacin [From CIPRO] Allergy (Intermediate, Verified 03/13/23 09:05) RENAL FUNCTION ISSUES Sulfa (Sulfonamide Antibiotics) Allergy (Unknown, Verified 03/13/23 09:05) Unknown Medication List - Last Reconciled 03/13/23 by Jose Navarrete MD amlodipine 10 mg PO DAILY ascorbate calcium (vitamin C) 500 mg PO DAILY aspirin (Adult Low Dose Aspirin) 81 mg PO DAILY calcium carbonate-vitamin D3 500 mg-5 mcg (200 unit) (Calcium 500 + D) 1 tab PO DAILY clonidine HCl 0.1 mg PO BID fluoxetine (Prozac) 20 mg PO DAILY furosemide 40 mg PO DAILY metoprolol succinate ER 100 mg PO DAILY 90 days multivitamin 1 tab PO QAM pravastatin 20 mg PO DAILY HPI SAWV (rescheduled) HPI Details HTN hyperlipidemia; blind PFSH Medical History Arthritis Anxiety Kidney disease Elevated cholesterol Cervical cancer screening Post-menopausal Screening for colon cancer Screening for diabetes mellitus Hypertension Surgical History Hx of bilateral cataract extraction Hx of eye surgery History of colonoscopy History of uterine fibroid H/O bilateral oophorectomy History of blepharoplasty History of removal of cyst Family History Father Hodgkin disease Mother Acute CVA (cerebrovascular accident) Sister Breast cancer Social History Household Members Other:: lives alone-disabled/ elderly community Housing: Apartment Alcohol intake: never Patient Tobacco Use Status: Never used Tobacco e-Cigarette/Vaping Use: Never Used Second Hand Smoke Exposure: No service: No Current occupational status: disabled Cognitive needs: Yes (cane) Hearing needs: No Vision needs: Yes (Glasses) Questionnaire Medicare Wellness Checkup [age] What gender do you identify with?: female During the past 4 weeks, how much have you been bothered by emotional problems such as feeling anxious, depressed, irritable, sad or downhearted, and blue?: not at all During the past 4 weeks, has your physical & emotional health limited your social activities with family, friends, neighbors, or groups?: not at all During the past 4 weeks, how much bodily pain have you generally had?: mild pain During the past 4 weeks, was someone available to help you if you needed & wanted help?: yes, as much as I wanted During the past 4 weeks, what was the hardest physical activity you could do for at least 2 minutes?: light Can you get to places out of walking distance without help? (For eg., can you travel alone on buses, taxis or drive your car?): Yes Can you go shopping for groceries or clothes without someone's help?: No Can you prepare your own meals?: No (sometimes) Can you do your housework without help?: No Because of any health problems, do you need the help of another person with your personal care needs such as eating, bathing, dressing or getting around the house?: Yes Can you handle your own money without help?: Yes During the past 4 weeks, how would you rate your health in general?: very good During the past 4 weeks how have things been going for you?: pretty well Are you having difficulties driving your car?: not applicable, I don't use a car Do you always fasten your seat belt when you are in a car?: yes, usually During past 4 weeks, have you been bothered by the following: never: Falling or dizzy when standing up, Sexual problems?, Trouble eating well?, Teeth or denture problems? and Problems using the telephone? and seldom: Tiredness or fatigue? Have you fallen 2 or more times in the past year?: No Are you afraid of falling?: No Are you a smoker?: no During the past 4 weeks, how many drinks of wine, beer, or other alcoholic beverages did you have?: no alcohol at all Do you exercise for about 20 minutes 3 or more times a week?: yes, some of the time Have you been given information to help with the following?: yes: Keeping track of your medications? and no: Hazards in your house that might hurt you? How often do you have trouble taking medicines the way you have been told to take them?: I always take medicine as prescribed How confident are you that you can control & manage most of your health problems?: very confident What is your race?: White Mini Mental State Exam (MMSE) Orientation What is the (year) (season) (date) (day) (month)?: year, season, date, day and month Where are we (state) (county) (town or city) (hospital) (floor)?: state, county, town or city, hospital/clinic and floor Registration Name of 3 unrelated objects clearly and slowly, then ask patient to repeat all 3 of them. (1st repeat determines score. Make sure they can repeat all three): object 1, object 2 and object 3 Attention & Calculation (CHOOSE ONE) Spell WORLD backwards (DLROW): 5 letters Recall Ask patient to repeat the 3 items from question #3.: object 1, object 2 and object 3 Score Score: 21 Activity of Daily Living Bathing - sponge bath, tub bath or shower: receives no assistance (gets in/out by self, if usual bathing means Dressing - getting clothes from closets & drawers, including inner/outer garments & fasteners.: gets clothes & gets completely dressed without help Toileting - going to the 'toilet room' for urine/bowel elimination & cleaning self/arranging clothes: goes to toilet room, cleans self, arranges clothes without help Transfer: moves in & out of bed and chair without help (may use support object) Continence: controls urination/bowel movements completely by self Feeding: feeds self without help Total Score: 0 Information obtained from: patient Using telephone: independent Traveling: needs assistance Shopping: needs assistance Preparing meals: independent Housework: needs assistance Taking medicine: independent Managing money: independent PHQ-9 Over the last 2 weeks, how often have you been bothered by any of the following problems? 1. Little interest or pleasure in doing things: not at all 2. Feeling down, depressed, or hopeless: not at all 3. Trouble falling or staying asleep, or sleeping too much: not at all 4. Feeling tired or having little energy: not at all 5. Poor appetite or overeating: not at all 6. Feeling bad about yourself - or that you are a failure or have let yourself or your family down: not at all 7. Trouble concentrating on things, such as reading the newspaper or watching television: not at all 8. Moving or speaking so slowly that other people could have noticed. Or the opposite - being so fidgety or restless that you have been moving around a lot more than usual: not at all 9. Thoughts that you would be better off or of hurting yourself in some way: not at all Total score: 0 Depression Screening Interpretation: Negative Depression Screening Done: Yes 20978 - PHQ-9 Billing: Yes Source: Developed by Drs. [place] Cazares, Ann Mccall, Vladimir Malone and colleagues, with an educational hernandez from [employer]. Thrive Questionnaire Date Thrive assessed: 07/11/22 SAGAR-7 AMB Questionnaire SAGAR-7 Date SAGAR - 7 assessed: 06/06/22 Source: Developed by Drs. North Cazares, Ann Mccall, Vladimir Malone and colleagues, with an educational hernandez from [employer]. Review of Systems Const Denies chills, Denies fatigue, Denies headache(s) and Denies weight loss Eyes Denies change in vision, Denies diplopia and Denies eye pain ENT Reports Normal hearing present, Denies vertigo, Denies dizziness, Denies headache(s) and Denies nasal discharge Card Denies chest pain, Denies rapid heart rate and Denies dyspnea on exertion Resp Denies chest congestion, Denies cough, Denies pain with cough and Denies dyspnea on exertion GI Denies abdominal pain, Denies hematochezia and Denies change in bowel habits Musc Denies myalgias, Denies arthralgias and Denies joint swelling Skin/Breast Denies lesions and Denies unusual bruising Neuro Reports Normal hearing present, Denies vertigo, Denies dizziness, Denies headache(s) and Denies focal weakness Endo Denies fatigue Physical Exam Vital Signs: Last Vital Signs Pulse 42 L 11/01/23 09:05 BP 130/66 03/13/23 09:05 Pulse Ox 98 03/13/23 09:05 Oxygen Delivery Method Room Air 03/13/23 09:05 BMI result Body Mass Index 34.6 Neuro Cranial nerves: Yes Normal hearing present Assessment & Plan Assessment & Plan (1) Encounter for subsequent annual wellness visit (AWV) in Medicare patient: Code(s): Z00.00 - Encounter for general adult medical examination without abnormal findings Plan: whisper test nl (2) Hyperlipidemia: Code(s): E78.5 - Hyperlipidemia, unspecified Plan: same rx (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 Panel Fast Today N28.9 - Disorder of kidney and ureter, unspecified Quality Reporting (2019) Depression/Bipolar (159/160/161/177) PHQ-9: Total score: 0 Coding Level of Care Code Medicare Subsequent (G0439) Diagnoses Encounter for subsequent annual wellness visit (AWV) in Medicare patient Z00.00 Hyperlipidemia E78.5 Legally blind H54.8 Hypertension I10 CPT Codes Advance Care Planning - Advance Care Planning discussion: On file, no changes ([id number]) Advance Care Planning Advance Care Planning discussion: On file, no changes Forms completed: Health Care Proxy
[2023-03-13 09:05] VITALS: BP 130/66; PULSE 42; O2SAT 98; BMI 34.6
== END 2023-03-13 10:07 | disposition home or self-care (01) ==
PROVIDERS: PCP Internal Medicine; Visit Provider Internal Medicine
DX: Z00.00 Encounter for general adult medical examination without abnormal findings (principal); E78.5 Hyperlipidemia, unspecified; H54.8 Legal blindness, as defined in USA; I10 Essential (primary) hypertension
CPT/HCPCS: 1123F; G0439

== ENCOUNTER → 2023-06-05 09:54 | Outpatient (BNVA) | payer MEDICARE, MEDICAID, SELFPAY | PROVIDERS: PCP Internal Medicine; Visit Provider Internal Medicine Nephrology ==

== ENCOUNTER → 2023-06-17 10:00 | Outpatient (BNVA) | payer MEDICARE, MEDICAID, SELFPAY | PROVIDERS: PCP Internal Medicine; Visit Provider Nurse Practitioner Family | DX: R00.1 Bradycardia, unspecified (principal); I10 Essential (primary) hypertension; E78.5 Hyperlipidemia, unspecified; Z79.899 Other long term (current) drug therapy | CPT/HCPCS: 99212 ==

== ENCOUNTER 2023-06-17 10:01 | Outpatient (AMB) | payer MEDICARE, MEDICAID, SELFPAY ==
[2023-06-17 10:07] VITALS: BP 120/62; PULSE 43; BMI 34.4
--- NOTE | 2023-06-17 10:07 | MHC.OFFVIS ---
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 Allergies tramadol [TRAMADOL] Allergy (Severe, Verified 06/17/23 10:11) ANAPHYLAXIS ciprofloxacin [From CIPRO] Allergy (Intermediate, Verified 06/17/23 10:11) RENAL FUNCTION ISSUES Sulfa (Sulfonamide Antibiotics) Allergy (Unknown, Verified 06/17/23 10:11) Unknown Medication List - Last Reconciled 06/17/23 by Monika Loco, BARREL FILLER-C amlodipine 10 mg PO DAILY ascorbate calcium (vitamin C) 500 mg PO DAILY aspirin (Adult Low Dose Aspirin) 81 mg PO DAILY calcium carbonate-vitamin D3 500 mg-5 mcg (200 unit) (Calcium 500 + D) 1 tab PO DAILY clonidine HCl 0.1 mg PO DAILY fluoxetine (Prozac) 20 mg PO DAILY furosemide 40 mg PO DAILY metoprolol succinate ER 50 mg PO DAILY multivitamin 1 tab PO QAM pravastatin 40 mg PO DAILY HPI 6 mth f/up HPI Details Krista is a 73-year-old female past medical history of obesity, hypertension, diabetes, hyperlipidemia, chronic kidney disease, sinus bradycardia who presents for follow-up. Today she reports that she went to [facility] recently with friends and she was noticing shortness of breath with walking. She also notice this same symptom when [place] was [place] She does not notice it with normal ADLs. No chest discomfort at rest or with activity. No shortness of breath at rest. No PND, orthopnea or edema. No presyncope, syncope, falls. Taking all meds as directed. She says she only takes medications in the morning. No meds in the evening. [facility] Medical History Arthritis Anxiety Kidney disease Elevated cholesterol Cervical cancer screening Post-menopausal Screening for colon cancer Screening for diabetes mellitus Hypertension Surgical History Hx of bilateral cataract extraction Hx of eye surgery History of colonoscopy History of uterine fibroid H/O bilateral oophorectomy History of blepharoplasty History of removal of cyst Family History Father Hodgkin disease Mother Acute CVA (cerebrovascular accident) Sister Breast cancer Social History Household Members Other:: lives alone-disabled/ elderly community Housing: Apartment Alcohol intake: never Patient Tobacco Use Status: Never used Tobacco e-Cigarette/Vaping Use: Never Used Second Hand Smoke Exposure: No service: No Current occupational status: disabled Cognitive needs: Yes (cane) Hearing needs: No Vision needs: Yes (Glasses) Review of Systems Const Details: visually impaired All systems reviewed & are unremarkable except as noted in HPI and below ENT Denies dizziness Card Denies chest pain, Denies chest pain at rest, Denies chest pain with activity, Denies rapid heart rate, Denies pedal edema, Denies edema, Denies leg edema, Denies lightheadedness, Denies palpitations, Denies dyspnea, Reports dyspnea on exertion and Denies orthopnea Resp Denies cough, Denies dyspnea and Reports dyspnea on exertion GI Denies hematochezia and Denies change in stool character Musc Denies abnormal gait, Denies limited range of motion, Denies muscle cramps, Denies muscle weakness, Denies numbness, Denies radiating pain into limb, Denies stiffness and Denies tingling Neuro Denies abnormal gait, Denies dizziness, Denies numbness and Denies tingling Endo Denies palpitations Physical Exam Vital Signs: Last Vital Signs Pulse 43 L 06/17/23 10:07 BP 120/62 06/17/23 10:07 BMI result Body Mass Index 34.4 Const General: cooperative, healthy appearing, comfortable and no acute distress Orientation/consciousness: patient oriented x3 HEENT Other: visually impaired Neck Neck: Yes normal visual inspection Resp Effort & Inspection: normal respiratory effort Auscultation: clear to auscultation bilaterally, no crackles, no rales, no rhonchi and no wheezes Cardio Jugular venous distension: no JVD Rate: regular rate Rhythm: regular rhythm Heart sounds: S1 normal heart sound present, S2 normal heart sound present, no murmurs and no rubs Neuro General: patient oriented x3 Extrem General: Yes normal to inspection, No no pedal edema and No calf tenderness Psych Appearance: grossly normal Mental Status: mental status grossly normal Speech and movement: Normal speech and movement present Assessment & Plan Assessment & Plan (1) Sinus bradycardia: Comment: Stable and she is asymptomatic. Code(s): R00.1 - Bradycardia, unspecified Plan: History of sinus bradycardia, asymptomatic. For her blood pressure she is on clonidine and metoprolol which contribute to her low heart rates. EKG done last visit showed sinus bradycardia, rate 46. In looking back at heart rates over the last 2 years it seems her heart rate typically runs 40s to 50s. She denies any dizziness, presyncope, syncope, falls. She is reporting some shortness of breath with prolonged walking such as going to [facility] and at the [employer]. She could be having some chronotropic incompetence with these activities contributing to her shortness of breath symptom. Blood pressure is currently normal range at 120/62. Will have her reduce her metoprolol XL down to 50 mg daily. This will allow her heart rate to come up to a more normal range and hopefully improve any shortness of breath. She is agreeable to this plan. She follows with her PCP routinely. Will arrange for cardiology follow-up in 6 months, sooner if needed. (2) Hypertension: Code(s): I10 - Essential (primary) hypertension Plan: Well controlled at present time. [place] blood pressure goal less than 130/85. Continue on current med management including clonidine, amlodipine. Reducing metoprolol XL to 50 mg daily. (3) Hyperlipidemia: Code(s): E78.5 - Hyperlipidemia, unspecified Plan: [place] LDL goal less than 70 in patient with diabetes. Followed by her PCP. I do see fasting lipid profile done on 10/15/2022 showing LDL 176. She is on low-dose pravastatin. Recommend this be changed to a higher potency statin for better LDL lowering affect. Will forward this note to her PCP Plan Time spent on chart review, documentation, interview and assessment Medications: New metoprolol succinate ER 50 mg PO DAILY 90 tabs 2RF furosemide Refill from PCP 40 mg PO DAILY 90 tabs 0RF Discontinued furosemide Discontinued Reason: Doctor's Order 40 mg PO DAILY 90 tabs 2RF metoprolol succinate ER Discontinued Reason: Doctor's Order 100 mg PO DAILY 90 tabs 3RF 90 days Coding Level of Care Code Est Pt Level 3 (63509) Diagnoses Sinus bradycardia R00.1 Hypertension I10 Hyperlipidemia E78.5 Time Spent (min) 24
== END 2023-06-17 10:42 | disposition home or self-care (01) ==
PROVIDERS: PCP Internal Medicine; Visit Provider Nurse Practitioner Family
DX: R00.1 Bradycardia, unspecified (principal); I10 Essential (primary) hypertension; E78.5 Hyperlipidemia, unspecified
CPT/HCPCS: 99213

== ENCOUNTER 2023-07-03 11:02 | Outpatient (REF) | payer MEDICARE, MEDICAID, SELFPAY ==
[2023-07-03 11:48] LABS: MANUAL DIFF FLAG NO
[2023-07-03 11:58] LABS: Basophils Percent Auto 0.5 % (0-2); Eosinophils Absolute Auto 0.2 X10*3/uL (0.0-0.4); Eosinophils Percent Auto 2.3 % (0-4); Hematocrit 40.6 % (37.0-47.0); Hemoglobin 13.4 g/dl (12.0-16.0); Imm Gran Abs Auto 0.02 X10*3/uL (0.00-0.03); Imm Gran Pct Auto 0.3 % (0.0-0.4); Lymphocytes Percent Auto 40.7 % (20-40); Mean Corpuscular Hemoglobin 28.7 pg (27.0-33.0); Mean Corpuscular Volume 86.9 fL (80.0-98.0); Mean Platelet Volume 9.3 fL (9.4-12.3); Monocytes Absolute Auto 0.7 X10*3/uL (0.1-1.2); Monocytes Percent Auto 9.2 % (2-11); Neutrophils Absolute Auto 3.5 x10*3/uL (2.0-8.3); Platelet Count 241 X10*3/uL (160-400); Red Blood Count 4.67 X10*6/uL (4.20-5.50); Red Cell Distribution Width 13.6 % (11.0-16.0); White Blood Count 7.4 X10*3/uL (4.8-10.8)
[2023-07-03 12:30] LABS: Alanine Aminotransferase 16 U/L (0-31); Albumin Level 4.3 g/dL (3.5-5.0); Alkaline Phosphatase 113 U/L (39-117); Anion Gap 12 (12-20); Aspartate Amino Transferase 18 U/L (5-31); Bilirubin Total 0.4 mg/dL (0.0-1.0); Blood Urea Nitrogen 18 mg/dL (9-16); Calcium 9.7 mg/dL (8.4-10.2); Carbon Dioxide 28 mmol/L (22-29); Chloride 108 mmol/L (96-108); Cholesterol 257 mg/dL (<200); Estimated Glomerular Filt Rate > 60; Glucose Fasting 107 mg/dL (60-99); HDL Cholesterol 36 mg/dL (>40); LDL Cholesterol Calculated 175 mg/dL (<100); Potassium 4.1 mmol/L (3.3-5.1); Sodium 144 mmol/L (135-145); Total Protein 7.5 g/dL (6.5-8.0); Triglycerides 232 mg/dL (<150)
[2023-07-03 12:47] LABS: Thyroid Stimulating Hormone 2.07 uIU/mL (0.32-4.0)
== END 2023-07-03 11:03 | disposition home or self-care (01) ==
LOC: HO.LAB 11:02
PROVIDERS: Absent Provider Internal Medicine Nephrology; PCP Internal Medicine; Visit Provider Internal Medicine
DX: E78.5 Hyperlipidemia, unspecified (principal); N28.9 Disorder of kidney and ureter, unspecified; E03.9 Hypothyroidism, unspecified; D64.9 Anemia, unspecified
CPT/HCPCS: 36415; 80053; 80061; 84443; 85025

== ENCOUNTER 2023-07-05 10:02 | Outpatient (AMB) | payer MEDICARE, MEDICAID, SELFPAY ==
--- NOTE | 2023-07-05 10:09 | HO.NEPHOV_ITS ---
HPI HPI Comments History of Present Illness Details I would the delight of seeing Krista in follow-up of her mild CKD and hypertension. Her renal functions have been stable. Recently she has been feeling short of breath and was found to have low heart rate. She has seen the Cardiology team and her metoprolol dosage was cut back. Her heart rate is still in 40s. She denies any syncope, chest pain, shortness of breath, paroxysmal nocturnal dyspnea, orthopnea, pedal edema or orthostatic symptoms. She has no dysuria or hematuria. She is good with her diet and tries to minimize sodium intake. Her renal functions have been stable. [facility] Medical History Arthritis Anxiety Kidney disease Elevated cholesterol Cervical cancer screening Post-menopausal Screening for colon cancer Screening for diabetes mellitus Hypertension Surgical History Hx of bilateral cataract extraction Hx of eye surgery History of colonoscopy History of uterine fibroid H/O bilateral oophorectomy History of blepharoplasty History of removal of cyst Family History Father Hodgkin disease Mother Acute CVA (cerebrovascular accident) Sister Breast cancer Social History Household Members Other:: lives alone-disabled/ elderly community Housing: Apartment Alcohol intake: never Patient Tobacco Use Status: Never used Tobacco e-Cigarette/Vaping Use: Never Used Second Hand Smoke Exposure: No service: No Current occupational status: disabled Cognitive needs: Yes (cane) Hearing needs: No Vision needs: Yes (Glasses) Vital Signs 07/05/23 10:10 Height 5 ft 2 in Weight 190 lb 8 oz BMI 34.8 BP 122/60 Blood Pressure Location Rt brachial Position Sitting Pulse 47 L Pulse Source Pulse Oximeter Pulse Oximetry (%) 98 Oxygen Delivery Method Room Air Physical Exam Vital Signs: Last Vital Signs Pulse 47 L 07/05/23 10:10 BP 122/60 07/05/23 10:10 Pulse Ox 98 07/05/23 10:10 Oxygen Delivery Method Room Air 07/05/23 10:10 BMI result Body Mass Index 34.8 Const General: comfortable and no acute distress Orientation/consciousness: patient oriented x3 HEENT Head: Yes normocephalic Mouth: Normal oral and palatal mucosa present Neck Neck: Yes supple Resp Auscultation: clear to auscultation bilaterally Cardio Jugular venous distension: no JVD Rate: regular rate GI Palpation (GI): Soft to palpation Auscultation: normal bowel sounds General: Yes no CVA tenderness Back/Spine/Pelvis Back: no CVA tenderness Skin General skin exam: no rashes or lesions noted Neuro General: patient oriented x3 and moves all extremities Extrem General: Yes no pedal edema Assessment & Plan Assessment & Plan (1) CKD (chronic kidney disease) stage 3, GFR 30-59 ml/min: Code(s): N18.30 - Chronic kidney disease, stage 3 unspecified Qualifiers: Chronic kidney disease stage 3 subtype: stage 3a (GFR 45-59) Qualified Code(s): N18.31 - Chronic kidney disease, stage 3a (2) Hypertension: Code(s): I10 - Essential (primary) hypertension Qualifiers: Hypertension type: primary hypertension Qualified Code(s): I10 - Essential (primary) hypertension Plan Krista's renal functions are stable. She had been having bradycardia and the dose of metoprolol has been cut back. Her heart rate is still in 40s. I reduced the dosage of clonidine to 0.05 mg daily. I plan to wean her off clonidine altogether. In the process if her blood pressure goes up and heart rate permits I will put her back on her dose of metoprolol to avoid polypharmacy. She needs to lose some weight. She should maintain low-sodium diet. I will consider introducing low-dose JUAN M inhibitor with time. She tries to avoid nonsteroidal anti-inflammatories and maintains good hydration. I did not make any other changes today. Follow-up appointment given. Answered all questions. Medications: Changed From clonidine HCl 0.05 mg PO DAILY To clonidine HCl 0.05 mg (1/2 x 0.1 mg) PO DAILY 30 days 15 tabs 5RF Coding Level of Care Code Est Pt Level 4 (86190) Diagnoses Stage 3a chronic kidney disease N18.31 Chronic kidney disease stage 3 subtype: stage 3a (GFR 45-59) Primary hypertension I10 Hypertension type: primary hypertension Results Reviewed Nephrology Results: Hgb 13.4 g/dl (12.0-16.0) 07/03/23 WBC 7.4 X10*3/uL (4.8-10.8) 07/03/23 Plt Count 241 X10*3/uL (160-400) 07/03/23 Sodium 144 mmol/L (135-145) 07/03/23 Potassium 4.1 mmol/L (3.3-5.1) 07/03/23 Chloride 108 mmol/L (96-108) 07/03/23 Carbon Dioxide 28 mmol/L (22-29) 07/03/23 BUN 18 mg/dL (9-16) H 07/03/23 Creatinine 0.89 mg/dL (0.5-1.4) 07/03/23 Calcium 9.7 mg/dL (8.4-10.2) 07/03/23
[2023-07-05 10:10] VITALS: BP 122/60; PULSE 47; O2SAT 98; BMI 34.8
== END 2023-07-05 10:28 | disposition home or self-care (01) ==
PROVIDERS: PCP Internal Medicine; Visit Provider Internal Medicine Nephrology
DX: N18.31 Chronic kidney disease, stage 3a (principal); I10 Essential (primary) hypertension
CPT/HCPCS: 99214

== ENCOUNTER → 2023-07-05 10:02 | Outpatient (BNVA) | payer MEDICARE, MEDICAID, SELFPAY | PROVIDERS: PCP Internal Medicine; Visit Provider Internal Medicine Nephrology | DX: I12.9 Hypertensive chronic kidney disease with stage 1 through stage 4 chronic kidney disease, or unspecified chronic kidney disease (principal); N18.31 Chronic kidney disease, stage 3a | CPT/HCPCS: 99212 ==

== ENCOUNTER 2023-08-02 10:01 | Outpatient (AMB) | payer MEDICARE, MEDICAID, SELFPAY ==
[2023-08-02 10:39] VITALS: BP 132/70; PULSE 53; O2SAT 97; BMI 35.5
--- NOTE | 2023-08-02 10:39 | HO.NEPHOV_ITS ---
HPI HPI Comments History of Present Illness Details I would the delight of seeing Krista in follow-up of her mild CKD and hypertension. Her renal functions had been stable. Recently she has been feeling short of breath and was found to have low heart rate. She has seen the Cardiology team and her metoprolol dosage was cut back. Her heart rate had been in 40s which has been better since I reduced her Clonidine. She denies any syncope, chest pain, shortness of breath, paroxysmal nocturnal dyspnea, orthopnea or orthostatic symptoms. She has been haivng edema since she increased salt in the diet. She has no dysuria or hematuria. She is good with her diet and tries to minimize sodium intake. Her renal functions have been stable. [facility] Medical History Arthritis Anxiety Kidney disease Elevated cholesterol Cervical cancer screening Post-menopausal Screening for colon cancer Screening for diabetes mellitus Hypertension Surgical History Hx of bilateral cataract extraction Hx of eye surgery History of colonoscopy History of uterine fibroid H/O bilateral oophorectomy History of blepharoplasty History of removal of cyst Family History Father Hodgkin disease Mother Acute CVA (cerebrovascular accident) Sister Breast cancer Social History Household Members Other:: lives alone-disabled/ elderly community Housing: Apartment Alcohol intake: never Patient Tobacco Use Status: Never used Tobacco e-Cigarette/Vaping Use: Never Used Second Hand Smoke Exposure: No service: No Current occupational status: disabled Cognitive needs: Yes (cane) Hearing needs: No Vision needs: Yes (Glasses) Vital Signs 08/02/23 10:39 Height 5 ft 2 in Weight 194 lb BMI 35.5 BP 132/70 Blood Pressure Location Lt brachial Position Sitting Pulse 53 Pulse Source Pulse Oximeter Pulse Oximetry (%) 97 Oxygen Delivery Method Room Air Physical Exam Vital Signs: Last Vital Signs Pulse 53 08/02/23 10:39 BP 132/70 08/02/23 10:39 Pulse Ox 97 08/02/23 10:39 Oxygen Delivery Method Room Air 08/02/23 10:39 BMI result Body Mass Index 35.5 Const General: comfortable and no acute distress Orientation/consciousness: patient oriented x3 HEENT Head: Yes normocephalic Mouth: Normal oral and palatal mucosa present Neck Neck: Yes supple Resp Auscultation: clear to auscultation bilaterally Cardio Jugular venous distension: no JVD Rate: regular rate GI Palpation (GI): Soft to palpation Auscultation: normal bowel sounds General: Yes no CVA tenderness Back/Spine/Pelvis Back: no CVA tenderness Skin General skin exam: no rashes or lesions noted Neuro General: patient oriented x3 and moves all extremities Extrem General: Yes no pedal edema Assessment & Plan Assessment & Plan (1) CKD (chronic kidney disease) stage 3, GFR 30-59 ml/min: Code(s): N18.30 - Chronic kidney disease, stage 3 unspecified Qualifiers: Chronic kidney disease stage 3 subtype: stage 3a (GFR 45-59) Qualified Code(s): N18.31 - Chronic kidney disease, stage 3a (2) Hypertension: Code(s): I10 - Essential (primary) hypertension Qualifiers: Hypertension type: primary hypertension Qualified Code(s): I10 - Essential (primary) hypertension Plan Krista's renal functions had bee stable. She had been having bradycardia and the dose of metoprolol was cut back. Her heart rate had been in 40s. So I reduced the dosage of clonidine to 0.05 mg daily. I stopped her clonidine today. I increased her dose of metoprolol to 75 mg daily. She needs to lose some weight. She should maintain low-sodium diet. I will consider introducing low- dose JUAN M inhibitor with time. She tries to avoid nonsteroidal anti-inflamm atories and maintains good hydration. I did not make any other changes today. Follow-up appointment given. Answered all questions Medications: Changed From metoprolol succinate ER 50 mg PO DAILY 90 tabs 2RF To metoprolol succinate ER 75 mg (1.5 x 50 mg) PO DAILY 90 tabs 2RF Discontinued clonidine HCl Discontinued Reason: Doctor's Order 0.05 mg (1/2 x 0.1 mg) PO DAILY 30 days 15 tabs 5RF Coding Level of Care Code Est Pt Level 4 (03378) Diagnoses Stage 3a chronic kidney disease N18.31 Chronic kidney disease stage 3 subtype: stage 3a (GFR 45-59) Primary hypertension I10 Hypertension type: primary hypertension Results Reviewed Nephrology Results: Hgb 13.4 g/dl (12.0-16.0) 07/03/23 WBC 7.4 X10*3/uL (4.8-10.8) 07/03/23 Plt Count 241 X10*3/uL (160-400) 07/03/23 Sodium 144 mmol/L (135-145) 07/03/23 Potassium 4.1 mmol/L (3.3-5.1) 07/03/23 Chloride 108 mmol/L (96-108) 07/03/23 Carbon Dioxide 28 mmol/L (22-29) 07/03/23 BUN 18 mg/dL (9-16) H 07/03/23 Creatinine 0.89 mg/dL (0.5-1.4) 07/03/23 Calcium 9.7 mg/dL (8.4-10.2) 07/03/23
== END 2023-08-02 10:56 | disposition home or self-care (01) ==
PROVIDERS: PCP Internal Medicine; Visit Provider Internal Medicine Nephrology
DX: N18.31 Chronic kidney disease, stage 3a (principal); I10 Essential (primary) hypertension
CPT/HCPCS: 99214

== ENCOUNTER → 2023-08-02 10:01 | Outpatient (BNVA) | payer MEDICARE, MEDICAID, SELFPAY | PROVIDERS: PCP Internal Medicine; Visit Provider Internal Medicine Nephrology | DX: I12.9 Hypertensive chronic kidney disease with stage 1 through stage 4 chronic kidney disease, or unspecified chronic kidney disease (principal); N18.31 Chronic kidney disease, stage 3a | CPT/HCPCS: 99212 ==

== ENCOUNTER 2023-09-12 14:58 | Outpatient (REF) | payer MEDICARE, MEDICAID, SELFPAY ==
[2023-09-12 15:52] LABS: Anion Gap 17 (12-20); Blood Urea Nitrogen 21 mg/dL (9-16); Carbon Dioxide 27 mmol/L (22-29); Chloride 103 mmol/L (96-108); Estimated Glomerular Filt Rate 48; Potassium 4.7 mmol/L (3.3-5.1); Sodium 142 mmol/L (135-145)
== END 2023-09-12 14:59 | disposition home or self-care (01) ==
LOC: HO.LAB 14:58
PROVIDERS: PCP Internal Medicine; Visit Provider Internal Medicine Nephrology
DX: N18.31 Chronic kidney disease, stage 3a (principal)
CPT/HCPCS: 36415; 80051; 82310; 82565; 84520

== ENCOUNTER 2023-09-13 09:16 | Outpatient (AMB) | payer MEDICARE, MEDICAID, SELFPAY ==
[2023-09-13 09:45] VITALS: BP 140/60; PULSE 52; O2SAT 97; BMI 34.3
--- NOTE | 2023-09-13 09:45 | HO.NEPHOV ---
Vital Signs 09/13/23 09:45 Height 5 ft 2 in Weight 187 lb 8 oz BMI 34.3 BP 140/60 H Blood Pressure Location Rt brachial Position Sitting Pulse 52 Pulse Source Pulse Oximeter Pulse Oximetry (%) 97 Oxygen Delivery Method Room Air Intake Visit Reasons: CKD / 1 MO FU/ LVM Screen Cleaner Required: No Accompanied by: Self / Same As Patient Allergies tramadol [TRAMADOL] Allergy (Severe, Verified 09/13/23 09:47) ANAPHYLAXIS ciprofloxacin [From CIPRO] Allergy (Intermediate, Verified 09/13/23 09:47) RENAL FUNCTION ISSUES Sulfa (Sulfonamide Antibiotics) Allergy (Unknown, Verified 09/13/23 09:47) Unknown HPI Comments Details: I would the delight of seeing Krista in follow-up of her mild CKD and hypertension. Her renal functions had been stable. Her heart rate had been in 40s which has been better since I discontinued Clonidine. She denies any syncope, chest pain, shortness of breath, paroxysmal nocturnal dyspnea, orthopnea or orthostatic symptoms. She had edema since she increased salt in the diet. She has no dysuria or hematuria. She is good with her diet and tries to minimize sodium intake. Her renal functions have been stable. [facility] Medical History Arthritis Anxiety Kidney disease Elevated cholesterol Cervical cancer screening Post-menopausal Screening for colon cancer Screening for diabetes mellitus Hypertension Surgical History Hx of bilateral cataract extraction Hx of eye surgery History of colonoscopy History of uterine fibroid H/O bilateral oophorectomy History of blepharoplasty History of removal of cyst Family History Father Hodgkin disease Mother Acute CVA (cerebrovascular accident) Sister Breast cancer Social History Household Members Other:: lives alone-disabled/ elderly community Housing: Apartment Alcohol intake: never Patient Tobacco Use Status: Never used Tobacco e-Cigarette/Vaping Use: Never Used Second Hand Smoke Exposure: No service: No Current occupational status: disabled Cognitive needs: Yes (cane) Hearing needs: No Vision needs: Yes (Glasses) Physical Exam Vital Signs: Last Vital Signs Pulse 52 09/13/23 09:45 BP 140/60 H 09/13/23 09:45 Pulse Ox 97 09/13/23 09:45 Oxygen Delivery Method Room Air 09/13/23 09:45 BMI result Body Mass Index 34.3 Const General: comfortable and no acute distress Orientation/consciousness: patient oriented x3 HEENT Head: Yes normocephalic Mouth: Normal oral and palatal mucosa present Eyes EOM: EOMs intact bilaterally Neck Neck: Yes supple Resp Auscultation: clear to auscultation bilaterally Cardio Jugular venous distension: no JVD Rate: regular rate GI Palpation (GI): Soft to palpation Auscultation: normal bowel sounds General: Yes no CVA tenderness Back/Spine/Pelvis Back: no CVA tenderness Skin General skin exam: no rashes or lesions noted Neuro General: patient oriented x3 and moves all extremities Results Reviewed Nephrology Results: Hgb 13.4 g/dl (12.0-16.0) 07/03/23 WBC 7.4 X10*3/uL (4.8-10.8) 07/03/23 Plt Count 241 X10*3/uL (160-400) 07/03/23 Sodium 142 mmol/L (135-145) 09/12/23 Potassium 4.7 mmol/L (3.3-5.1) 09/12/23 Chloride 103 mmol/L (96-108) 09/12/23 Carbon Dioxide 27 mmol/L (22-29) 09/12/23 BUN 21 mg/dL (9-16) H 09/12/23 Creatinine 1.12 mg/dL (0.5-1.4) 09/12/23 Calcium 11.0 mg/dL (8.4-10.2) H 09/12/23 Assessment & Plan Assessment & Plan (1) CKD (chronic kidney disease) stage 3, GFR 30-59 ml/min: Code(s): N18.30 - Chronic kidney disease, stage 3 unspecified Category: Medical Qualifiers: Chronic kidney disease stage 3 subtype: stage 3a (GFR 45-59) Qualified Code(s): N18.31 - Chronic kidney disease, stage 3a (2) Hypertension: Code(s): I10 - Essential (primary) hypertension Category: Medical Qualifiers: Hypertension type: primary hypertension Qualified Code(s): I10 - Essential (primary) hypertension (3) Hypercalcemia: Code(s): E83.52 - Hypercalcemia Category: Medical Plan Krista's renal functions had bee stable. She had been having bradycardia, which is better. Her clonidine was discontinued at the last visit.. I increased her dose of metoprolol to 75 mg daily. She needs to lose some weight. She should maintain low-sodium diet. I will consider introducing low-dose JUAN M inhibitor with time. She tries to avoid nonsteroidal anti-inflammatories and maintains good hydration. I stopped her Calcium and vitamin D. I ordered W/U. I asked her to increase hydration. She may need more BP medications to keep her BP at goal. I did not make any other changes today. Follow-up appointment given. Answered all questions Orders: Orders Blood Urea Nitrogen Today E83.52 - Hypercalcemia, I10 - Essential (primary) hypertension, N18.31 - Chronic kidney disease, stage 3a Calcium Today E83.52 - Hypercalcemia, I10 - Essential (primary) hypertension, N18.31 - Chronic kidney disease, stage 3a Vitamin D 25-OH Total Today E83.52 - Hypercalcemia, I10 - Essential (primary) hypertension, N18.31 - Chronic kidney disease, stage 3a Creatinine Today E83.52 - Hypercalcemia, I10 - Essential (primary) hypertension, N18.31 - Chronic kidney disease, stage 3a Electrolytes Today E83.52 - Hypercalcemia, I10 - Essential (primary) hypertension, N18.31 - Chronic kidney disease, stage 3a Immunofixation Pnl, Serum Today E83.52 - Hypercalcemia, I10 - Essential (primary) hypertension, N18.31 - Chronic kidney disease, stage 3a Parathyroid Hormone Intact Today E83.52 - Hypercalcemia, I10 - Essential (primary) hypertension, N18.31 - Chronic kidney disease, stage 3a Vitamin D 1,25 dihydroxy Today E83.52 - Hypercalcemia, I10 - Essential (primary) hypertension, N18.31 - Chronic kidney disease, stage 3a Medications: Discontinued calcium carbonate-vitamin D3 500 mg-5 mcg (200 unit) (Calcium 500 + D) Discontinued Reason: Doctor's Order 1 tab PO DAILY 90 tabs 8RF Coding Level of Care Code Est Pt Level 4 (61670) Diagnoses Stage 3a chronic kidney disease N18.31 Chronic kidney disease stage 3 subtype: stage 3a (GFR 45-59) Primary hypertension I10 Hypertension type: primary hypertension Hypercalcemia E83.52
== END 2023-09-13 10:19 | disposition home or self-care (01) ==
PROVIDERS: PCP Internal Medicine; Visit Provider Internal Medicine Nephrology
DX: N18.31 Chronic kidney disease, stage 3a (principal); I10 Essential (primary) hypertension; E83.52 Hypercalcemia
CPT/HCPCS: 99214

== ENCOUNTER → 2023-09-13 09:16 | Outpatient (BNVA) | payer MEDICARE, MEDICAID, SELFPAY | PROVIDERS: PCP Internal Medicine; Visit Provider Internal Medicine Nephrology | DX: I12.9 Hypertensive chronic kidney disease with stage 1 through stage 4 chronic kidney disease, or unspecified chronic kidney disease (principal); N18.30 Chronic kidney disease, stage 3 unspecified; E83.52 Hypercalcemia | CPT/HCPCS: 99212 ==

== ENCOUNTER → 2023-10-02 23:59 | Outpatient (BNV) | payer MEDICARE, SELFPAY | PROVIDERS: PCP Internal Medicine; Visit Provider Internal Medicine | DX: I11.0 Hypertensive heart disease with heart failure (principal); F32.9 Major depressive disorder, single episode, unspecified; I50.22 Chronic systolic (congestive) heart failure; H54.8 Legal blindness, as defined in USA | CPT/HCPCS: G0179 ==

== ENCOUNTER 2023-11-20 09:55 | Outpatient (AMB) | payer MEDICARE, SELFPAY ==
--- NOTE | 2023-11-20 10:05 | AM.OFFWIN_ITS ---
Intake Vital Signs 11/20/23 10:06 Height 5 ft 2 in Weight 187 lb BMI 34.2 BP 122/74 Blood Pressure Location Rt brachial Position Sitting Pulse 56 Pulse Source Pulse Oximeter Pulse Oximetry (%) 99 Oxygen Delivery Method Room Air Intake Visit Reasons: EP fell Saturday rt foot/leg pain Intake Note: Pt here c/o RT foot and leg pain due to fall Saturday Patient Tobacco Use Status: Never used Tobacco Allergies tramadol [TRAMADOL] Allergy (Severe, Verified 11/20/23 10:05) ANAPHYLAXIS ciprofloxacin [From CIPRO] Allergy (Intermediate, Verified 11/20/23 10:05) RENAL FUNCTION ISSUES Sulfa (Sulfonamide Antibiotics) Allergy (Unknown, Verified 11/20/23 10:05) Unknown Do you need a note to return to daycare/school/sports/work: No HPI HPI Comments History of Present Illness0 Details 73 y/o female patient who presents to [facility] in clinic with c/o right knee and foot pain since Saturday. Pt had a Fall at home, tripped on her walker. PFSH Medical History Arthritis Anxiety Kidney disease Elevated cholesterol Cervical cancer screening Post-menopausal Screening for colon cancer Screening for diabetes mellitus Hypertension Surgical History Hx of bilateral cataract extraction Hx of eye surgery History of colonoscopy History of uterine fibroid H/O bilateral oophorectomy History of blepharoplasty History of removal of cyst Family History Father Hodgkin disease Mother Acute CVA (cerebrovascular accident) Sister Breast cancer Social History Household Members Other:: lives alone-disabled/ elderly community Housing: Apartment Alcohol intake: never Patient Tobacco Use Status: Never used Tobacco e-Cigarette/Vaping Use: Never Used Second Hand Smoke Exposure: No service: No Current occupational status: disabled Cognitive needs: Yes (cane) Hearing needs: No Vision needs: Yes (Glasses) Review of Systems Const All systems reviewed & are unremarkable except as noted in HPI and below Physical Exam Vital Signs: Last Vital Signs Pulse 56 11/20/23 10:06 BP 122/74 11/20/23 10:06 Pulse Ox 99 07/10/24 10:06 Oxygen Delivery Method Room Air 11/20/23 10:06 BMI result Body Mass Index 34.2 Const General: comfortable and no acute distress Nutritional Appearance: obese Orientation/consciousness: patient oriented x3 Skin Nails: discolored (Bilateral Toe Nails) and yellow and thickened (Bilateral Toe Nails) Neuro General: patient oriented x3, gait normal (Walk with a walker) and moves all extremities Extrem General: Yes normal to inspection and Yes full ROM Right lower extremity: knee Details: normal to inspection, tenderness Location: of the patella and normal ROM; no crepitus, no deformity and no unusual warmth and foot Details: normal capillary refill, tenderness Location: of the dorsal foot, toes with normal ROM and edema Location: of the dorsal foot Left lower extremity: normal to inspection and full ROM Psych Speech and movement: Normal speech and movement present Assessment & Plan Assessment & Plan (1) Right foot pain: Code(s): M79.671 - Pain in right foot Plan: Xray ordered Acetaminophen for pain relief Ice/Hot Rest the joint (2) Right knee pain: Code(s): M25.561 - Pain in right knee Qualifiers: Chronicity: acute Qualified Code(s): M25.561 - Pain in right knee Plan: Xray ordered Acetaminophen for pain relief Ice/Hot Rest the joint Ordered PT (3) Right foot injury: Code(s): S99.921A - Unspecified injury of right foot, initial encounter Qualifiers: Encounter type: initial encounter Qualified Code(s): S99.921A - Unspecified injury of right foot, initial encounter Plan: Ordered Xray Applied AirCast Boot Ref to Ortho placed today. Orders: Orders XR knee RT 2V Today M25.561 - Pain in right knee XR foot RT 2V Today M79.671 - Pain in right foot PT Evaluation and Treatment Today M25.561 - Pain in right knee, M79.671 - Pain in right foot Referrals Orthopedics Referral M79.671 - Pain in right foot, S99.921A - Unspecified injury of right foot, initial encounter Medications: New acetaminophen 1,000 mg (2 x 500 mg) PO Q6H PRN 30 caps 0RF pain M25.561 - Pain in right knee, M79.671 - Pain in right foot cyclobenzaprine 5 mg PO BEDTIME 10 tabs 0RF M25.561 - Pain in right knee, M79.671 - Pain in right foot Coding Level of Care Code Est Pt Level 4 (23455) Diagnoses Right foot pain M79.671 Acute pain of right knee M25.561 Chronicity: acute Injury of right foot, initial encounter S99.921A Encounter type: initial encounter Time Spent (min) 20
[2023-11-20 10:06] VITALS: BP 122/74; PULSE 56; O2SAT 99; BMI 34.2
== END 2023-11-20 11:37 | disposition home or self-care (01) ==
PROVIDERS: PCP Internal Medicine; Visit Provider Nurse Practitioner Family
DX: M79.671 Pain in right foot (principal); M25.561 Pain in right knee; S99.921A Unspecified injury of right foot, initial encounter
CPT/HCPCS: 99214

== ENCOUNTER 2023-11-20 10:27 | Outpatient (REF) | payer MEDICARE, MEDICAID, SELFPAY ==
--- NOTE | ~2023-11-20 | XR_ITS ---
EXAMINATION: XR KNEE, RIGHT CLINICAL INFORMATION: Right knee pain COMPARISON: None available. TECHNIQUE: Two views of the right knee. FINDINGS: Bones have normal alignment at the right knee. The joint spaces are maintained. No fracture, subluxation or joint effusion. Chondrocalcinosis of medial and lateral menisci. There are no suspicious osseous lesions. XR/XR knee RT 2V IMPRESSION: * No acute abnormalities at the right knee. No fracture or malalignment. * Chondrocalcinosis of the menisci, but no evidence of arthritic disease.
--- NOTE | ~2023-11-20 | XR_ITS ---
EXAMINATION: XR FOOT, RIGHT CLINICAL INFORMATION: Pain in the foot COMPARISON: 03/09/2016 TECHNIQUE: 3 views of the right foot. FINDINGS: Acute oblique intra-articular fracture at the medial base of the second metatarsal. This corresponds to a bone fragment at site of Lisfranc ligament attachment. There is 0.2 cm of cortical bone offset at the medial aspect of the metaphysis of the injured metatarsal. The alignment is maintained along the Lisfranc joint. Metatarsophalangeal and interphalangeal joints are normal. The soft tissues are mildly swollen at the dorsal midfoot and proximal forefoot. There are small calcaneal enthesophytes. XR/XR foot RT 2V IMPRESSION: Acute, mildly displaced intra-articular fracture at the medial base of the second metatarsal.
== END 2023-11-20 10:28 | disposition home or self-care (01) ==
LOC: HO.HMGCX 10:27
PROVIDERS: PCP Internal Medicine; Visit Provider Nurse Practitioner Family
DX: M25.561 Pain in right knee (principal); M79.671 Pain in right foot
CPT/HCPCS: 73560; 73620

== ENCOUNTER 2023-11-25 10:24 | Outpatient (AMB) | payer MEDICARE, MEDICAID, SELFPAY ==
--- NOTE | 2023-11-25 10:33 | MHC.OFFVIS ---
Vital Signs 11/25/23 10:42 Height 5 ft 2 in Weight 187 lb BMI 34.2 Intake Visit Reasons: FC-Right metatarsal fx, DOI 11/18/23 Intake Note: Krista a 73 year old female who presents today for an evaluation of right metatarsal fracture, DOI 11/18/23. Patient reports she fell in [place] when she tripped over a cane. Patient presented to her PCP a few days later and was sent to an urgent care where xrays were taken and placed in a walking boot. Currently her pain has been tolerable, states numbness in her toes. Finds relief with extra strength Tylenol. She has been using a walker to ambulate. Allergies tramadol [TRAMADOL] Allergy (Severe, Verified 11/25/23 10:43) ANAPHYLAXIS ciprofloxacin [From CIPRO] Allergy (Intermediate, Verified 11/25/23 10:43) RENAL FUNCTION ISSUES Sulfa (Sulfonamide Antibiotics) Allergy (Unknown, Verified 11/25/23 10:43) Unknown Medication List - Last Reconciled 11/25/23 by Alden Contreras PA-C acetaminophen 1,000 mg (2 x 500 mg) PO Q6H PRN amlodipine 10 mg PO DAILY aspirin (Adult Low Dose Aspirin) 81 mg PO DAILY cyclobenzaprine 5 mg PO BEDTIME fluoxetine (Prozac) 20 mg PO DAILY furosemide 40 mg PO DAILY metoprolol succinate ER 75 mg (1.5 x 50 mg) PO DAILY multivitamin 1 tab PO QAM pravastatin 40 mg PO DAILY HPI HPI FC-Right metatarsal fx, DOI 11/18/23: Details: 73-year-old female who presents to the office today for an evaluation of right metatarsal injury after tripping over her cane and sustaining a fall in [place], 11/18/23. She was seen by her PCP a few days later who sent to urgent care where x-rays were performed and she was placed in a walking boot. She currently states she has tolerable pain and limited ROM in her foot as well as numbness in her toes. She finds relief with extra strength Tylenol. She uses a walker to ambulate. [facility] [place] [place] Medical History Arthritis Anxiety Kidney disease Elevated cholesterol Cervical cancer screening Post-menopausal Screening for colon cancer Screening for diabetes mellitus Hypertension Surgical History Hx of bilateral cataract extraction Hx of eye surgery History of colonoscopy History of uterine fibroid H/O bilateral oophorectomy History of blepharoplasty History of removal of cyst Family History Father Hodgkin disease Mother Acute CVA (cerebrovascular accident) Sister Breast cancer Social History Household Members Other:: lives alone-disabled/ elderly community Housing: Apartment Alcohol intake: never Patient Tobacco Use Status: Never used Tobacco e-Cigarette/Vaping Use: Never Used Second Hand Smoke Exposure: No service: No Current occupational status: disabled Cognitive needs: Yes (cane) Hearing needs: No Vision needs: Yes (Glasses) Review of Systems Const All systems reviewed & are unremarkable except as noted in HPI and below Physical Exam Vital Signs: BMI result Body Mass Index 34.2 Const General: cooperative, healthy appearing, comfortable, no acute distress, well developed and alert Orientation/consciousness: patient oriented x3 HEENT Head: Yes normal to inspection, Yes normocephalic and Yes atraumatic Eyes General: appearance normal, both eyes and all related structures Resp Effort & Inspection: normal respiratory effort and able to speak in complete sentences Cardio Rate: regular rate Peripheral pulses: Peripheral pulses 2+ throughout GI Palpation (GI): Soft to palpation Skin Lesions: no lesions Rashes: no rashes Neuro General: patient oriented x3 Extrem Other: Right foot: Skin intact.? There is some bruising over the dorsum of the right foot.? There is tenderness at the base of the 2nd metatarsal. Sensation intact.? EHL intact.? No pain along the mediolateral malleolus.? Neurovascularly intact. Office Procedures Fracture Care Fracture Billing Code: Fracture Billing Code Results Reviewed Results Reviewed: XR foot RT 2V IMPRESSION: Acute, mildly displaced intra-articular fracture at the medial base of the second metatarsal. Assessment & Plan Assessment & Plan (1) Fracture of 2nd metatarsal: Code(s): S92.323A - Displaced fracture of second metatarsal bone, unspecified foot, initial encounter for closed fracture Category: Medical (2) Lisfranc's sprain: Code(s): S93.629A - Sprain of tarsometatarsal ligament of unspecified foot, initial encounter Category: Medical Plan We discussed options today which include conservative management with a boot. I recommend she limits her weight bearing unless needed. I ordered a CT scan of the right foot to further evaluate the extent of her injury. She is legally blind and uses a walking stick. She lives alone. She is using her walker with seat to around this time however I encouraged that she uses some assistance with getting around to prevent injury. I will discuss the results with her over the phone and she will see me back in 4-6 weeks with x-rays of the right foot, sooner if needed. Orders: Orders CT foot RT wo IV con Today S93.629A - Sprain of tarsometatarsal ligament of unspecified foot, initial encounter Patient Instructions: Scribed for Alden Contreras PA-C, by [facility] medical office receptionist, on 11/25/2023 at 10:45 AM EST.? I, Alden Contreras PA-C, have personally reviewed and agree with the information entered by the scribe. Coding Level of Care Code New Pt Level 3 (01409) Diagnoses Fracture of 2nd metatarsal S92.323A Lisfranc's sprain S93.629A CPT Codes Fracture Care - Fracture Billing Code: Fracture Billing Code ([id number])
[2023-11-25 10:42] VITALS: BMI 34.2
== END 2023-11-25 11:54 | disposition home or self-care (01) ==
PROVIDERS: PCP Internal Medicine; Visit Provider Physician Assistant
DX: S92.321A Displaced fracture of second metatarsal bone, right foot, initial encounter for closed fracture (principal); S93.621A Sprain of tarsometatarsal ligament of right foot, initial encounter
CPT/HCPCS: 99203; 99213

== ENCOUNTER → 2023-11-25 10:24 | Outpatient (BNVA) | payer MEDICARE, MEDICAID, SELFPAY | PROVIDERS: PCP Internal Medicine; Visit Provider Physician Assistant | DX: S92.323A Displaced fracture of second metatarsal bone, unspecified foot, initial encounter for closed fracture (principal); S93.629A Sprain of tarsometatarsal ligament of unspecified foot, initial encounter | CPT/HCPCS: 99202 ==

== ENCOUNTER 2023-11-28 14:33 | Outpatient (REF) | payer MEDICARE, OTHER, SELFPAY ==
--- NOTE | ~2023-11-28 | CT_ITS ---
EXAMINATION: CT FOOT WITHOUT CONTRAST, RIGHT CLINICAL INFORMATION: Tarsometatarsal sprain. COMPARISON: Right foot radiographs dated 11/20/2023. TECHNIQUE: Contiguous axial CT images of the right foot were obtained without contrast. Multiplanar reformats were provided and reviewed. This CT examination was performed using dose optimization techniques as appropriate, variously including the following: *Automated exposure control *Adjustment of mA and/or kV according to patient size (this includes techniques or standardized protocols for targeted exams where dose is matched to indication/reason for exam; i.e. extremities or head) *Use of iterative reconstruction technique DLP: 159 mGy-cm FINDINGS: Mildly displaced and comminuted fracture through the base of the second metatarsal with extension to the central aspect of the tarsometatarsal articular surface where there is a fracture gap measuring up to 0.3 cm. Vertical step-off measures up to 0.4 cm along the dorsal cortical surface. The fracture is in the region of the Lisfranc ligament attachment. Additional small cortical fracture fragment along the plantar/lateral aspect of the medial cuneiform adjacent to the Lisfranc ligament attachment, consistent with a tiny cortical avulsion fracture. No widening of the Lisfranc joint space. Tiny, nondisplaced oblique fractures through the dorsal/lateral aspect of the lateral cuneiform and adjacent third metatarsal base which contact the third tarsometatarsal articular surface. No metatarsal subluxation. Mild joint space narrowing with minimal subchondral cystic change at the dorsal aspect of the first tarsometatarsal joint. No concerning lytic or blastic osseous lesion. No talar osteochondral lesion. Plantar and dorsal calcaneal spurs. No abnormal soft tissue mass or fluid collection. Dorsal/lateral subcutaneous edema. The visualized flexor and extensor tendons are grossly intact. CT/CT foot RT wo IV con IMPRESSION: 1. Mildly displaced and comminuted fractures through the base of the second metatarsal with extension to the central aspect of the tarsometatarsal articular surface. The fracture is in the region of the Lisfranc ligament attachment. Additional small cortical avulsion fracture along the plantar/lateral aspect of the medial cuneiform adjacent to the Lisfranc ligament attachment. No widening of the Lisfranc joint space. 2. Tiny, nondisplaced oblique fractures through the dorsal/lateral aspect of the lateral cuneiform adjacent to the third metatarsal base which contact the third tarsometatarsal articular surface. No metatarsal subluxation. 3. Dorsal/lateral subcutaneous edema.
== END 2023-11-28 14:34 | disposition home or self-care (01) ==
LOC: HO.CT 14:33
PROVIDERS: PCP Internal Medicine; Visit Provider Physician Assistant
DX: S93.621D Sprain of tarsometatarsal ligament of right foot, subsequent encounter (principal)
CPT/HCPCS: 73700

== ENCOUNTER 2023-12-13 14:22 | Outpatient (AMB) | payer MEDICARE, SELFPAY ==
--- NOTE | 2023-12-13 14:22 | A.OFFVIS_ITS ---
Vital Signs 12/13/23 14:28 Height 5 ft 2 in Weight 187 lb BMI 34.2 Intake Visit Reasons: TV- CT review right foot Intake Note: Krista a 73 year old female scheduled for a telephone visit to review CT of right foot. Patient reports she was seen at a walk in clinic after her last visit and was prescribed tylenol and celebrex, she never received celebrex due to insurance. Currently her pain has improved however she complains of a weird sensation that she describes as a muscle jumping. She continues to wear boot as instructed. Allergies tramadol [TRAMADOL] Allergy (Severe, Verified 12/13/23 14:28) ANAPHYLAXIS ciprofloxacin [From CIPRO] Allergy (Intermediate, Verified 12/13/23 14:28) RENAL FUNCTION ISSUES Sulfa (Sulfonamide Antibiotics) Allergy (Unknown, Verified 12/13/23 14:28) Unknown HPI HPI TV- CT review right foot: Details: MRI f/u via telehealth right foot. Currently her pain has improved, she has some muscle spasms in the foot on occasion. She continues to wear boot as instructed. [facility] Medical History Arthritis Anxiety Kidney disease Elevated cholesterol Cervical cancer screening Post-menopausal Screening for colon cancer Screening for diabetes mellitus Hypertension Surgical History Hx of bilateral cataract extraction Hx of eye surgery History of colonoscopy History of uterine fibroid H/O bilateral oophorectomy History of blepharoplasty History of removal of cyst Family History Father Hodgkin disease Mother Acute CVA (cerebrovascular accident) Sister Breast cancer Social History Household Members Other:: lives alone-disabled/ elderly community Housing: Apartment Alcohol intake: never Patient Tobacco Use Status: Never used Tobacco e-Cigarette/Vaping Use: Never Used Second Hand Smoke Exposure: No service: No Current occupational status: disabled Cognitive needs: Yes (cane) Hearing needs: No Vision needs: Yes (Glasses) Review of Systems Const All systems reviewed & are unremarkable except as noted in HPI and below Physical Exam Vital Signs: BMI result Body Mass Index 34.2 Resp Effort & Inspection: normal respiratory effort and able to speak in complete sentences Telehealth Telehealth Telehealth Platform: Telephone Location of provider rendering services: practice address Location of patient: address on file Patient Identification confirmed using: Name, : Yes Telehealth method: voice only Patient verbally consented to treatment: Yes Patient verbally consented to billing insurance company: Yes Patient informed of any privacy concerns related to visit: Yes Results Reviewed Results Reviewed: CT foot RT wo IV con IMPRESSION: 1. Mildly displaced and comminuted fractures through the base of the second metatarsal with extension to the central aspect of the tarsometatarsal articular surface. The fracture is in the region of the Lisfranc ligament attachment. Additional small cortical avulsion fracture along the plantar/lateral aspect of the medial cuneiform adjacent to the Lisfranc ligament attachment. No widening of the Lisfranc joint space. 2. Tiny, nondisplaced oblique fractures through the dorsal/lateral aspect of the lateral cuneiform adjacent to the third metatarsal base which contact the third tarsometatarsal articular surface. No metatarsal subluxation. 3. Dorsal/lateral subcutaneous edema. Assessment & Plan Assessment & Plan (1) Lisfranc's sprain: Code(s): S93.629A - Sprain of tarsometatarsal ligament of unspecified foot, initial encounter Category: Medical (2) Fracture of 2nd metatarsal: Code(s): S92.323A - Displaced fracture of second metatarsal bone, unspecified foot, initial encounter for closed fracture Category: Medical Plan She will continue with protected weight bearing as tolerated. I explained no tear in the ligament so we can continue with conservative treatment. I will see her back in 3-4 weeks with xrays sooner if needed. Coding Level of Care Code Tele Est Pt Level 3 (90431) Diagnoses Lisfranc's sprain S93.629A Fracture of 2nd metatarsal S92.323A
[2023-12-13 14:28] VITALS: BMI 34.2
== END 2023-12-13 14:33 | disposition home or self-care (01) ==
LOC: HO.HOS 14:22
PROVIDERS: PCP Internal Medicine; Visit Provider Physician Assistant
DX: S93.629A Sprain of tarsometatarsal ligament of unspecified foot, initial encounter (principal); S92.323A Displaced fracture of second metatarsal bone, unspecified foot, initial encounter for closed fracture
CPT/HCPCS: 99213

== ENCOUNTER → 2023-12-13 14:22 | Outpatient (BNVA) | payer MEDICARE, OTHER, SELFPAY | PROVIDERS: PCP Internal Medicine; Visit Provider Physician Assistant ==

== ENCOUNTER 2024-01-02 11:01 | Outpatient (AMB) | payer MEDICARE, SELFPAY ==
[2024-01-02 11:06] VITALS: BP 132/80; PULSE 86; O2SAT 96
--- NOTE | 2024-01-02 11:06 | A.OFFPC_ITS ---
Vital Signs 01/02/24 11:06 Height 5 ft 2 in BMI Reason not done Patient refused/unable BP 132/80 Blood Pressure Location Lt brachial Position Sitting Pulse 86 Pulse Source Pulse Oximeter Pulse Oximetry (%) 96 Oxygen Delivery Method Room Air Intake Visit Reasons: Ampatigo symptoms Allergies tramadol [TRAMADOL] Allergy (Severe, Verified 01/02/24 11:06) ANAPHYLAXIS ciprofloxacin [From CIPRO] Allergy (Intermediate, Verified 01/02/24 11:06) RENAL FUNCTION ISSUES Sulfa (Sulfonamide Antibiotics) Allergy (Unknown, Verified 01/02/24 11:06) Unknown Tobacco use date assessed: 01/02/24 Fall risk assessment: 1 Fall in past year Last assessed Fall Risk: 01/02/24 Dental Screening Dental Screen Date: 01/02/24 Did you have a dental visit in the last 12 months?: No Did you have a dental problem in the last 6 months where you did not have access to dental care?: No Was dental information given to patient?: Patient has dentist HPI Ampatigo symptoms HPI Details has impetigo angle of mouth PFSH Medical History Arthritis Anxiety Kidney disease Elevated cholesterol Cervical cancer screening Post-menopausal Screening for colon cancer Screening for diabetes mellitus Hypertension Surgical History Hx of bilateral cataract extraction Hx of eye surgery History of colonoscopy History of uterine fibroid H/O bilateral oophorectomy History of blepharoplasty History of removal of cyst Family History Father Hodgkin disease Mother Acute CVA (cerebrovascular accident) Sister Breast cancer Social History Household Members Other:: lives alone-disabled/ elderly community Housing: Apartment Alcohol intake: never Patient Tobacco Use Status: Never used Tobacco Tobacco use type: Cigarette e-Cigarette/Vaping Use: Never Used Second Hand Smoke Exposure: No service: No Current occupational status: disabled Cognitive needs: Yes (cane) Hearing needs: No Vision needs: Yes (Glasses) Questionnaire PHQ-9 Over the last 2 weeks, how often have you been bothered by any of the following problems? 1. Little interest or pleasure in doing things: not at all 2. Feeling down, depressed, or hopeless: not at all 3. Trouble falling or staying asleep, or sleeping too much: not at all 4. Feeling tired or having little energy: not at all 5. Poor appetite or overeating: not at all 6. Feeling bad about yourself - or that you are a failure or have let yourself or your family down: not at all 7. Trouble concentrating on things, such as reading the newspaper or watching television: not at all 8. Moving or speaking so slowly that other people could have noticed. Or the opposite - being so fidgety or restless that you have been moving around a lot more than usual: not at all 9. Thoughts that you would be better off or of hurting yourself in some way: not at all Total score: 0 Depression Screening Interpretation: Negative Depression Screening Done: Yes 91744 - PHQ-9 Billing: Yes Source: Developed by Drs. North Cazares, Ann Mccall, Vladimir Malone and colleagues, with an educational hernandez from [employer] Thrive Questionnaire Date Thrive assessed: 01/02/24 I am a: Patient What is your living situation today?: I have a steady place to live Within the past 12 months, did the food you bought not last and you didn't have the money to get more?: Never true Within the past 12 months, did you worry whether your food would run out before you got money to buy more?: Never true Do you have trouble paying for medicines?: No Do you have trouble getting transportation to medical appointments?: No Do you have trouble paying your heating and electricity bill?: No Do you have trouble taking care of your child, family member or friend?: No Do you have trouble with day-to-day activities such as bathing, preparing meals, shopping, managing finances, etc.?: No Are you currently unemployed and looking for a job?: No Are you interested in more education?: No THRIVE Score: 0 AUDIT C Alcohol Use Questionnaire (AUDIT-C) 1. How often do you have a drink containing alcohol?: Never 3. How often do you have six or more drinks on one occasion?: Never Total Score: 0 Score Reviewed/Action Taken: Yes SAGAR-7 AMB Questionnaire SAGAR-7 Date SAGAR - 7 assessed: 01/02/24 Feeling nervous, anxious, or on edge: 0 = Not at all Not being able to stop or control worryin = Not at all Worrying too much about different things: 0 = Not at all Trouble relaxin = Not at all Being so restless that it is hard to sit still: 0 = Not at all Becoming easily annoyed or irritable: 0 = Not at all Feeling afraid as if something awful might happen: 0 = Not at all Total SAGAR-7 score (0-4 normal; 5-9 mild; 10-14 moderate; 15-21 severe): 0 Source: Developed by Drs. North Cazares, Ann Mccall, Vladimir Malone and colleagues, with an educational hernandez from [employer] SAGAR-7 Assessment Billing SAGAR-7 Assessment Tool: SAGAR-7 Assessment 50344 Review of Systems Const Denies chills, Denies headache(s) and Denies weight loss ENT Denies headache(s) Card Denies chest pain, Denies syncope, Denies irregular heart rhythm and Denies dyspnea Resp Denies chest congestion, Denies cough and Denies dyspnea GI Denies abdominal pain, Denies change in stool character, Denies nausea and Denies vomiting Musc Denies deformity and Denies joint swelling Neuro Denies syncope and Denies headache(s) Physical exam (Primary Care) Vital Signs: Last Vital Signs Pulse 86 01/02/24 11:06 BP 132/80 01/02/24 11:06 Pulse Ox 96 01/02/24 11:06 Oxygen Delivery Method Room Air 01/02/24 11:06 Tobacco/Smoking Status: Tobacco use Status Tobacco use date assessed 01/02/24 01/02/24 11:13 Patient Tobacco Use Status Never used Tobacco 01/02/24 11:13 Tobacco use type Cigarette 01/02/24 11:13 e-Cigarette/Vaping Use Never Used 01/02/24 11:13 PHQ-9: PHQ-9 Score PHQ-9: Total score 0 01/02/24 11:13 Depression Screening Interpretation: Negative Thrive Assessment: Date of Thrive Assessment Date Thrive assessed 01/02/24 01/02/24 11:13 Const General: cooperative, comfortable, no acute distress and alert Neck Neck: Yes no lymphadenopathy Thyroid: Thyroid normal Resp Effort & Inspection: normal respiratory effort Auscultation: clear to auscultation bilaterally Percussion: percussion normal Cardio Jugular venous distension: no JVD Palpation: normal PMI Rate: regular rate Rhythm: regular rhythm Heart sounds: S1 normal heart sound present and S2 normal heart sound present GI Inspection: Yes normal to inspection Palpation (GI): No hepatosplenomegaly present Skin Other: impetigo left angle of mouth Extrem General: Yes no clubbing, cyanosis or edema Assessment and Plan Assessment & Plan (1) Impetigo: Code(s): L01.00 - Impetigo, unspecified Plan: rx sent Medications: New amoxicillin-pot clavulanate 500-125 mg (Augmentin) 1 tab PO BID 10 tabs 0RF Coding Level of Care Code Est Pt Level 3 (49458) Diagnoses Impetigo L01.00 Additional Codes SAGAR-7 Assessment Billing - SAGAR-7 Assessment Tool: SAGAR-7 Assessment [id number] ([id number])
== END 2024-01-02 11:21 | disposition home or self-care (01) ==
PROVIDERS: PCP Internal Medicine; Visit Provider Internal Medicine
DX: L01.00 Impetigo, unspecified (principal)
CPT/HCPCS: 99213

== ENCOUNTER 2024-01-10 09:10 | Outpatient (REF) | payer MEDICARE, OTHER, SELFPAY ==
--- NOTE | ~2024-01-10 | XR_ITS ---
EXAMINATION: XR FOOT, RIGHT CLINICAL INFORMATION: Metatarsal fracture COMPARISON: 11/20/2023 TECHNIQUE: AP, lateral, and oblique views of the right foot. FINDINGS: Diffuse osteopenia. Alignment of the 2nd metatarsal base fracture appears similar with, perhaps slight interval impaction, some sclerosis noted along the fracture line. No additional fractures are evident. XR/XR foot RT min 3V IMPRESSION: Slight interval impaction and sclerosis along the 2nd metatarsal base fracture. Osteopenia. Electronically signed by: Memo Man MD 01/16/2024 10:45 AM EDT
== END 2024-01-10 09:11 | disposition home or self-care (01) ==
LOC: HO.XRAY 09:10
PROVIDERS: PCP Internal Medicine; Visit Provider Physician Assistant
DX: S92.351A Displaced fracture of fifth metatarsal bone, right foot, initial encounter for closed fracture (principal)
CPT/HCPCS: 73630; 99212

== ENCOUNTER 2024-01-10 09:43 | Outpatient (AMB) | payer MEDICARE, SELFPAY ==
--- NOTE | 2024-01-10 09:48 | A.OFFVIS_ITS ---
Intake Visit Reasons: OV - right foot Intake Note: Krista is a 73 year old female who presents today for a follow up visit of her right foot 2nd metatarsal fracture, DOI: 11/18/23.lateral base of toes. Allergies tramadol [TRAMADOL] Allergy (Severe, Verified 01/10/24 09:54) ANAPHYLAXIS ciprofloxacin [From CIPRO] Allergy (Intermediate, Verified 01/10/24 09:54) RENAL FUNCTION ISSUES Sulfa (Sulfonamide Antibiotics) Allergy (Unknown, Verified 01/10/24 09:54) Unknown Medication List - Last Reconciled 01/10/24 by Alden Contreras PA-C acetaminophen 1,000 mg (2 x 500 mg) PO Q6H PRN amlodipine 10 mg PO DAILY amoxicillin-pot clavulanate 500-125 mg (Augmentin) 1 tab PO BID aspirin (Adult Low Dose Aspirin) 81 mg PO DAILY calcium carbonate-vitamin D3 250 mg-3.125 mcg (125 unit) (Oyster Shell + D3) 1 tab PO DAILY cyclobenzaprine 5 mg PO BEDTIME fluoxetine (Prozac) 20 mg PO DAILY furosemide 40 mg PO DAILY metoprolol succinate ER 25 mg PO DAILY 90 days metoprolol succinate ER 50 mg PO DAILY multivitamin 1 tab PO QAM pravastatin 40 mg PO DAILY HPI HPI OV - right foot: Details: 73-year-old female who returns to the office today for a follow-up of right 2nd metatarsal fracture, 11/18/23. She states she has pain at the lateral base of her foot. She is wearing her boot as instructed. She has no other concerns today. [facility] Medical History Arthritis Anxiety Kidney disease Elevated cholesterol Cervical cancer screening Post-menopausal Screening for colon cancer Screening for diabetes mellitus Hypertension Surgical History Hx of bilateral cataract extraction Hx of eye surgery History of colonoscopy History of uterine fibroid H/O bilateral oophorectomy History of blepharoplasty History of removal of cyst Family History Father Hodgkin disease Mother Acute CVA (cerebrovascular accident) Sister Breast cancer Social History Household Members Other:: lives alone-disabled/ elderly community Housing: Apartment Alcohol intake: never Patient Tobacco Use Status: Never used Tobacco Tobacco use type: Cigarette e-Cigarette/Vaping Use: Never Used Second Hand Smoke Exposure: No service: No Current occupational status: disabled Cognitive needs: Yes (cane) Hearing needs: No Vision needs: Yes (Glasses) Review of Systems Const All systems reviewed & are unremarkable except as noted in HPI and below Physical Exam Const General: cooperative, healthy appearing, comfortable, no acute distress, well developed and alert Orientation/consciousness: patient oriented x3 HEENT Head: Yes normal to inspection, Yes normocephalic and Yes atraumatic Eyes General: appearance normal, both eyes and all related structures Resp Effort & Inspection: normal respiratory effort and able to speak in complete sentences Cardio Rate: regular rate Peripheral pulses: Peripheral pulses 2+ throughout GI Palpation (GI): Soft to palpation Skin Lesions: no lesions Rashes: no rashes Neuro General: patient oriented x3 Extrem Other: Right foot: Skin intact.? No bruising or swelling.? There is mild tenderness at the base of the 2nd metatarsal. Sensation intact.? EHL intact.? No pain along the mediolateral malleolus.? Neurovascularly intact. Results Reviewed Results Reviewed: XR foot RT obtained today : Acute, mildly displaced intra-articular fracture at the medial base of the second metatarsal. with interval healing Assessment & Plan Assessment & Plan (1) Lisfranc's sprain: Code(s): S93.629A - Sprain of tarsometatarsal ligament of unspecified foot, initial encounter Category: Medical Qualifiers: Encounter type: subsequent encounter Laterality: right Qualified Code(s): S93.621D - Sprain of tarsometatarsal ligament of right foot, subsequent encounter (2) Fracture of 2nd metatarsal: Code(s): S92.323A - Displaced fracture of second metatarsal bone, unspecified foot, initial encounter for closed fracture Category: Medical Qualifiers: Encounter type: subsequent encounter Fracture type: closed Fracture alignment: nondisplaced Laterality: right Fracture healing: with routine healing Qualified Code(s): S92.324D - Nondisplaced fracture of second metatarsal bone, right foot, subsequent encounter for fracture with routine healing Plan She will start transitioning from a boot to a regular street shoe. She will use caution with uneven surfaces or walking on hills. She will begin a course of physical therapy and if she continues to develop pain or any other concerns, she will contact the office, otherwise follow-up as needed. Orders: Orders XR foot RT min 3V Today S92.351A - Displaced fracture of fifth metatarsal bone, right foot, initial encounter for closed fracture Patient Instructions: Scribed for Alden Contreras PA-C, by Everett Austin medical officer psychiatry, on 01/10/2024 at 9:45 AM EST.? I, Alden Contreras PA-C, have personally reviewed and agree with the information entered by the scribe. Coding Level of Care Code Global (41473) Diagnoses Sprain of ligament of tarsometatarsal joint of right foot, subsequent encounter S93.621D Encounter type: subsequent encounter Laterality: right Closed nondisplaced fracture of second metatarsal bone of right foot with routine healing, subsequent encounter S92.324D Encounter type: subsequent encounter Fracture type: closed Fracture alignment: nondisplaced Laterality: right Fracture healing: with routine healing
== END 2024-01-10 10:57 | disposition home or self-care (01) ==
PROVIDERS: PCP Internal Medicine; Visit Provider Physician Assistant
DX: S93.621D Sprain of tarsometatarsal ligament of right foot, subsequent encounter (principal); S92.324D Nondisplaced fracture of second metatarsal bone, right foot, subsequent encounter for fracture with routine healing
CPT/HCPCS: 99213

== ENCOUNTER 2024-01-17 14:14 | Outpatient (AMB) | payer MEDICARE, SELFPAY ==
--- NOTE | 2024-01-17 14:15 | HO.NEPHOV ---
Vital Signs 01/17/24 14:15 Height 5 ft 2 in Intake Visit Reasons: R/S 12/13/2023- Conf Sociology Professor Required: No Accompanied by: Self / Same As Patient Allergies tramadol [TRAMADOL] Allergy (Severe, Verified 01/17/24 14:15) ANAPHYLAXIS ciprofloxacin [From CIPRO] Allergy (Intermediate, Verified 01/17/24 14:15) RENAL FUNCTION ISSUES Sulfa (Sulfonamide Antibiotics) Allergy (Unknown, Verified 01/17/24 14:15) Unknown HPI Comments Details: I would the delight of seeing Krista by [facility] in follow-up of her mild CKD and hypertension. Her renal functions had been stable. Her heart rate had been in 40s which has been better since I discontinued Clonidine. She recently had fracture of her foot. She denies any syncope, chest pain, shortness of breath, paroxysmal nocturnal dyspnea, orthopnea or orthostatic symptoms. She has no dysuria or hematuria. She is good with her diet and tries to minimize sodium intake. Her renal functions have been stable. She has not had any blood work for some time. [facility] Medical History Arthritis Anxiety Kidney disease Elevated cholesterol Cervical cancer screening Post-menopausal Screening for colon cancer Screening for diabetes mellitus Hypertension Surgical History Hx of bilateral cataract extraction Hx of eye surgery History of colonoscopy History of uterine fibroid H/O bilateral oophorectomy History of blepharoplasty History of removal of cyst Family History Father Hodgkin disease Mother Acute CVA (cerebrovascular accident) Sister Breast cancer Social History Household Members Other:: lives alone-disabled/ elderly community Housing: Apartment Alcohol intake: never Patient Tobacco Use Status: Never used Tobacco Tobacco use type: Cigarette e-Cigarette/Vaping Use: Never Used Second Hand Smoke Exposure: No service: No Current occupational status: disabled Cognitive needs: Yes (cane) Hearing needs: No Vision needs: Yes (Glasses) Review of Systems Const All systems reviewed & are unremarkable except as noted in HPI and below Telehealth Telehealth Telehealth Platform: Telephone Location of provider rendering services: practice address Location of patient: address on file Patient Identification confirmed using: Name, : Yes Telehealth method: voice only Patient verbally consented to treatment: Yes Patient verbally consented to billing insurance company: Yes Patient informed of any privacy concerns related to visit: No Minutes spent on Phone/Video with Pt.: 10 Results Reviewed Nephrology Results: No Data to Display Assessment & Plan Assessment & Plan (1) Hypertension: Code(s): I10 - Essential (primary) hypertension Category: Medical Qualifiers: Hypertension type: primary hypertension Qualified Code(s): I10 - Essential (primary) hypertension (2) Hypercalcemia: Code(s): E83.52 - Hypercalcemia Category: Medical (3) CKD (chronic kidney disease) stage 3, GFR 30-59 ml/min: Code(s): N18.30 - Chronic kidney disease, stage 3 unspecified Category: Medical Qualifiers: Chronic kidney disease stage 3 subtype: stage 3a (GFR 45-59) Qualified Code(s): N18.31 - Chronic kidney disease, stage 3a (4) Hypertension: Code(s): I10 - Essential (primary) hypertension Category: Medical Qualifiers: Hypertension type: primary hypertension Qualified Code(s): I10 - Essential (primary) hypertension Plan Krista's renal functions had been stable. She needs to lose some weight. She should maintain low-sodium diet. I will consider introducing low-dose JUAN M inhibitor with time. She tries to avoid nonsteroidal anti-inflammatories and maintains good hydration. I have asked her to hold her Calcium and vitamin D. I ordered W/U. I asked her to increase hydration. Lab work ordered; I did not make any other changes today. Follow-up appointment given. Answered all questions Orders: Orders Calcium 01/17/24 I10 - Essential (primary) hypertension Electrolytes 01/17/24 I10 - Essential (primary) hypertension Blood Urea Nitrogen 01/17/24 I10 - Essential (primary) hypertension Creatinine 01/17/24 I10 - Essential (primary) hypertension Coding Level of Care Code Tele Est Pt Level 4 (44925) Diagnoses Primary hypertension I10 Hypertension type: primary hypertension Hypercalcemia E83.52 Stage 3a chronic kidney disease N18.31 Chronic kidney disease stage 3 subtype: stage 3a (GFR 45-59)
== END 2024-01-17 15:56 | disposition home or self-care (01) ==
LOC: HO.HKA 14:14
PROVIDERS: PCP Internal Medicine; Visit Provider Internal Medicine Nephrology
DX: I12.9 Hypertensive chronic kidney disease with stage 1 through stage 4 chronic kidney disease, or unspecified chronic kidney disease (principal); N18.31 Chronic kidney disease, stage 3a; E83.52 Hypercalcemia
CPT/HCPCS: 99441

== ENCOUNTER → 2024-01-17 14:14 | Outpatient (BNVA) | payer MEDICARE, OTHER, SELFPAY | PROVIDERS: PCP Internal Medicine; Visit Provider Internal Medicine Nephrology ==

== ENCOUNTER 2024-03-06 13:00 | Outpatient (RCR) | payer MEDICARE, MEDICAID, SELFPAY ==
--- NOTE | 2024-02-11 14:40 | MHC.PT.EP ---
[facility] [place] Office [place] Office [place] Office [address] [phone] F: [phone] F: [phone] F: [phone] F: [phone] Physical Therapy Plan of Care Date of Evaluation: 02/11/24 Date of Surgery: NA Diagnosis: PAIN IN R FOOT Assessment: Pt IS 73 YO F WHO IS BLIND REFERRED TO PT FROM ROSIBEL ANDERSEN ([facility] [place]) WITH R FOOT PAIN (LISFRANC FX FROM 11/19/23 SECOND METATARSAL) S/P FALL. WORE BOOT FOR SOME TIME. NOW WEARS REGULAR SHOE. LAST XRAY SHOWED SOME HEALING. Pt REPORTS LESS SWEILLING AND LESS PAIN OVERALL. PRESENTS WITH STILL SOME LIMITED ROM AND ANKLE STRENGTH WITH REPORT OF PAIN AFTER PROLONGED WALKING/TIME ON FEET AND SOME TTP TOP AND MEDIAL ASPECT OF FOOT. SHOULD BENEFIT FROM PT TO ADDRESS THESE ISSUES Frequency and Duration: The patient will be seen 2X/WK X 6 WKS Short Term Goals: 1. INCREASED AWARENESS OF FOOT CARE 2. I HEP WITH DC EX PLAN Tire Maintenance Technician Goals: 1. DECREASED R FOOT PAIN AT LEAST 50% WITH ADLS 2. IMPROVED GT REPORTED BY PATIENT WITH LESS USE OF WW Treatment Plan: Modalities to reduce pain, spasms and effusion. Manual therapy to restore motion and function. Therapeutic exercise to improve strength and flexibility. Neuromuscular re-education for posture and balance. Therapeutic activities to return to functional activities of daily living. Electronically signed by: TYSON HARKINS PT Please sign and return to therapist. Thank you for your referral.
--- NOTE | 2024-03-31 11:04 | MHC.PT.DC ---
[facility] [place] Office [place] Office [place] Office [address] Hilda Escalante [address] [phone] F: [phone] F: [phone] F: [phone] F: [phone] Physical Therapy Discharge Report Diagnosis: PAIN IN R FOOT Date of Surgery: NA Date of Evaluation: 02/11/24 Date of Discharge: 03/31/24 Treatments to Date: 5 Cancellations to Date: No Shows to Date: Discharge Status: Achieved Goals Improved Function Independent with HEP Patient Elected to Stop Discharge Summary: HAS MET PT GOALS, AGREES WITH DC Electronically signed by: TYSON HARKINS PT Please sign and return to therapist. Thank you for your referral.
== END 2024-03-31 11:05 | disposition home or self-care (01) ==
LOC: HO.PT 13:00
PROVIDERS: PCP Internal Medicine; Visit Provider Nurse Practitioner Family
DX: M79.671 Pain in right foot (principal); M25.561 Pain in right knee
CPT/HCPCS: 97110; 97161; 97535

== ENCOUNTER 2024-03-16 10:07 | Outpatient (AMB) | payer MEDICARE, MEDICAID, SELFPAY ==
[2024-03-16 10:12] VITALS: BP 122/80; PULSE 49; O2SAT 98; BMI 34.2
--- NOTE | 2024-03-16 10:12 | A.OFFVIS_ITS ---
Intake Vital Signs 03/16/24 10:12 Height 5 ft 2 in Weight 187 lb BMI 34.2 BP 122/80 Blood Pressure Location Lt brachial Position Sitting Pulse 49 L Pulse Source Pulse Oximeter Pulse Oximetry (%) 98 Oxygen Delivery Method Room Air Intake Visit Reasons: [facility] [id number] Accompanied by: Self / Same As Patient Allergies tramadol [TRAMADOL] Allergy (Severe, Verified 03/16/24 10:13) ANAPHYLAXIS ciprofloxacin [From CIPRO] Allergy (Intermediate, Verified 03/16/24 10:13) RENAL FUNCTION ISSUES Sulfa (Sulfonamide Antibiotics) Allergy (Unknown, Verified 03/16/24 10:13) Unknown Medication List - Last Reconciled 03/17/24 by Jose Navarrete MD acetaminophen 1,000 mg (2 x 500 mg) PO Q6H PRN amlodipine 10 mg PO DAILY amoxicillin-pot clavulanate 500-125 mg (Augmentin) 1 tab PO BID aspirin (Adult Low Dose Aspirin) 81 mg PO DAILY calcium carbonate-vitamin D3 250 mg-3.125 mcg (125 unit) (Oyster Shell + D3) 1 tab PO DAILY cyclobenzaprine 5 mg PO BEDTIME fluoxetine (Prozac) 20 mg PO DAILY furosemide 40 mg PO DAILY metoprolol succinate ER 25 mg PO DAILY 90 days metoprolol succinate ER 50 mg PO DAILY multivitamin 1 tab PO QAM pravastatin 40 mg PO DAILY Do you need a note to return to daycare/school/sports/work: No HPI [facility] G0439 HPI Details hypertension; hyperlipidemia; blind PFSH Medical History Arthritis Anxiety Kidney disease Elevated cholesterol Cervical cancer screening Post-menopausal Screening for colon cancer Screening for diabetes mellitus Hypertension Surgical History Hx of bilateral cataract extraction Hx of eye surgery History of colonoscopy History of uterine fibroid H/O bilateral oophorectomy History of blepharoplasty History of removal of cyst Family History Father Hodgkin disease Mother Acute CVA (cerebrovascular accident) Sister Breast cancer Social History Household Members Other:: lives alone-disabled/ elderly community Housing: Apartment Alcohol intake: never Patient Tobacco Use Status: Never used Tobacco Tobacco use type: Cigarette e-Cigarette/Vaping Use: Never Used Second Hand Smoke Exposure: No service: No Current occupational status: disabled Cognitive needs: Yes (cane) Hearing needs: No Vision needs: Yes (Glasses) Questionnaire Medicare Wellness Checkup What [age] What gender do you identify with?: female Mini Mental State Exam (MMSE) Orientation What is the (year) (season) (date) (day) (month)?: year, season, date, day and month Where are we (state) (county) (town or city) (hospital) (floor)?: state, county, town or city, hospital/clinic and floor Registration Name of 3 unrelated objects clearly and slowly, then ask patient to repeat all 3 of them. (1st repeat determines score. Make sure they can repeat all three): object 1, object 2 and object 3 Attention & Calculation (CHOOSE ONE) Ask pt to begin with 100 & count backward by 7. Stop after 5 repeats. If pt cannot ask them to spell the word WORLD backward.: 93 Spell WORLD backwards (DLROW): 2 letters Score Score: 16 Activity of Daily Living Bathing - sponge bath, tub bath or shower: receives help in bathing more than one body part (or not bathed) Dressing - getting clothes from closets & drawers, including inner/outer garments & fasteners.: receives help getting clothes or getting dressed, or stays undressed Toileting - going to the 'toilet room' for urine/bowel elimination & cleaning self/arranging clothes: receives help going to toilet room, cleaning self or arranging clothes Transfer: moves in & out of bed and chair without help (may use support object) Continence: controls urination/bowel movements completely by self Feeding: feeds self without help Total Score: 2 Information obtained from: patient Using telephone: needs assistance Traveling: needs assistance Shopping: needs assistance Preparing meals: needs assistance Housework: needs assistance Taking medicine: independent Managing money: independent PHQ-9 Over the last 2 weeks, how often have you been bothered by any of the following problems? 1. Little interest or pleasure in doing things: not at all 2. Feeling down, depressed, or hopeless: not at all 3. Trouble falling or staying asleep, or sleeping too much: not at all 4. Feeling tired or having little energy: not at all 5. Poor appetite or overeating: not at all 6. Feeling bad about yourself - or that you are a failure or have let yourself or your family down: not at all 7. Trouble concentrating on things, such as reading the newspaper or watching television: not at all 8. Moving or speaking so slowly that other people could have noticed. Or the opposite - being so fidgety or restless that you have been moving around a lot more than usual: not at all 9. Thoughts that you would be better off or of hurting yourself in some way: not at all Total score: 0 Depression Screening Interpretation: Negative Depression Screening Done: Yes 91517 - PHQ-9 Billing: Yes Source: Developed by Drs. North Cazares, Ann Mccall, Vladimir Malone and colleagues, with an educational hernandez from [employer]. PHQ-2/PHQ-9 PHQ-2 Over the last 2 weeks, how often have you been bothered by any of the following problems? 1. Little interest or pleasure in doing things: not at all 2. Feeling down, depressed, or hopeless: not at all Total score: 0 If score is 3 or greater, continue 3. Trouble falling or staying asleep, or sleeping too much: not at all 4. Feeling tired or having little energy: not at all 5. Poor appetite or overeating: not at all 6. Feeling bad about yourself - or that you are a failure or have let yourself or your family down: not at all 7. Trouble concentrating on things, such as reading the newspaper or watching television: not at all 8. Moving or speaking so slowly that other people could have noticed. Or the opposite - being so fidgety or restless that you have been moving around a lot more than usual: not at all 9. Thoughts that you would be better off or of hurting yourself in some way: not at all Total score: 0 0-4 None-Minimal, 5-9 Mild, 10-14 Moderate, 15-19 Moderately Severe, 20-27 Severe Source: Developed by Drs. North LAnn Mcduffie Kurt Kroenke and colleagues, with an educational hernandez from [employer]. Thrive Questionnaire Date Thrive assessed: 03/16/24 I am a: Patient What is your living situation today?: I have a steady place to live Within the past 12 months, did the food you bought not last and you didn't have the money to get more?: Never true Within the past 12 months, did you worry whether your food would run out before you got money to buy more?: Never true Do you have trouble paying for medicines?: No Do you have trouble getting transportation to medical appointments?: No Do you have trouble paying your heating and electricity bill?: No Do you have trouble taking care of your child, family member or friend?: No Do you have trouble with day-to-day activities such as bathing, preparing meals, shopping, managing finances, etc.?: No Are you currently unemployed and looking for a job?: No Are you interested in more education?: No Please select the resources that you would like help with: None Currently or been in a relationship where the following occur: No concerns reported THRIVE Score: 0 SAGAR-7 AMB Questionnaire SAGAR-7 Date SAGAR - 7 assessed: 03/16/24 Feeling nervous, anxious, or on edge: 0 = Not at all Not being able to stop or control worryin = Not at all Worrying too much about different things: 0 = Not at all Trouble relaxin = Not at all Being so restless that it is hard to sit still: 0 = Not at all Becoming easily annoyed or irritable: 0 = Not at all Feeling afraid as if something awful might happen: 0 = Not at all Total SAGAR-7 score (0-4 normal; 5-9 mild; 10-14 moderate; 15-21 severe): 0 Source: Developed by Drs. North Cazares, Vladimir Kee and colleagues, with an educational hernandez from [employer]. SAGAR-7 Assessment Billing SAGAR-7 Assessment Tool: SAGAR-7 Assessment 76692 Review of Systems Const Denies chills, Denies fatigue, Denies headache(s) and Denies weight loss Eyes Denies change in vision, Denies diplopia and Denies eye pain ENT Reports Normal hearing present, Denies vertigo, Denies dizziness, Denies headache(s) and Denies nasal discharge Card Denies chest pain, Denies rapid heart rate and Denies dyspnea on exertion Resp Denies chest congestion, Denies cough, Denies pain with cough and Denies dyspnea on exertion GI Denies abdominal pain, Denies hematochezia and Denies change in bowel habits Musc Denies myalgias, Denies arthralgias and Denies joint swelling Skin/Breast Denies lesions and Denies unusual bruising Neuro Reports Normal hearing present, Denies vertigo, Denies dizziness, Denies headache(s) and Denies focal weakness Endo Denies fatigue Physical Exam Vital Signs: Last Vital Signs Pulse 49 L 03/16/24 10:12 BP 122/80 03/16/24 10:12 Pulse Ox 98 03/16/24 10:12 Oxygen Delivery Method Room Air 03/16/24 10:12 BMI result Body Mass Index 34.2 Neuro Cranial nerves: Yes Normal hearing present Assessment & Plan Assessment & Plan (1) Encounter for initial annual wellness visit (AWV) in Medicare patient: Code(s): Z00.00 - Encounter for general adult medical examination without abnormal findings Plan: rhimberg and whisper tests nl; forms given to patient (2) Hyperlipidemia: Code(s): E78.5 - Hyperlipidemia, unspecified Plan: stable; same rx (3) Hypertension: Code(s): I10 - Essential (primary) hypertension Qualifiers: Hypertension type: primary hypertension Qualified Code(s): I10 - Essential (primary) hypertension Plan: stable; same rx (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 - Legal blindness, as defined in [place] Plan: stable Quality Reporting (2019) Depression/Bipolar (159/160/161/177) PHQ-9: Total score: 0 Coding Level of Care Code Medicare First (G0438) Diagnoses Encounter for initial annual wellness visit (AWV) in Medicare patient Z00.00 Hyperlipidemia E78.5 Primary hypertension I10 Hypertension type: primary hypertension Legally blind H54.8 CPT Codes Advance Care Planning - Advance Care Planning discussion: On file, no changes ([id number]) Additional Codes SAGAR-7 Assessment Billing - SAGAR-7 Assessment Tool: SAGAR-7 Assessment [id number] ([id number]) Advance Care Planning Advance Care Planning discussion: On file, no changes Forms completed: Health Care Proxy
== END 2024-03-16 10:43 | disposition home or self-care (01) ==
LOC: HO.HMCH 10:07
PROVIDERS: PCP Internal Medicine; Visit Provider Internal Medicine
DX: Z00.00 Encounter for general adult medical examination without abnormal findings (principal); E78.5 Hyperlipidemia, unspecified; I10 Essential (primary) hypertension; H54.8 Legal blindness, as defined in USA

== ENCOUNTER → 2024-03-16 10:07 | Outpatient (BNVA) | payer MEDICARE, OTHER, SELFPAY | PROVIDERS: PCP Internal Medicine; Visit Provider Internal Medicine ==

== ENCOUNTER 2024-03-19 12:49 | Outpatient (REF) | payer MEDICARE, OTHER, SELFPAY ==
[2024-03-19 13:14] LABS: MANUAL DIFF FLAG NO
[2024-03-19 13:47] LABS: Basophils Absolute Auto 0.1 X10*3/uL (0.0-0.2); Basophils Percent Auto 0.7 % (0-2); Eosinophils Absolute Auto 0.2 X10*3/uL (0.0-0.4); Hematocrit 38.5 % (37.0-47.0); Hemoglobin 12.8 g/dl (12.0-16.0); Imm Gran Abs Auto 0.02 X10*3/uL (0.00-0.03); Imm Gran Pct Auto 0.3 % (0.0-0.4); Lymphocytes Absolute Auto 2.8 X10*3/uL (1.2-4.9); Lymphocytes Percent Auto 37.6 % (20-40); Mean Corpuscular HGB Conc 33.2 g/dl (31.0-35.0); Mean Corpuscular Hemoglobin 28.8 pg (27.0-33.0); Mean Corpuscular Volume 86.7 fL (80.0-98.0); Mean Platelet Volume 9.2 fL (9.4-12.3); Monocytes Absolute Auto 0.7 X10*3/uL (0.1-1.2); Monocytes Percent Auto 9.4 % (2-11); Neutrophils Absolute Auto 3.7 x10*3/uL (2.0-8.3); Platelet Count 243 X10*3/uL (160-400); Red Blood Count 4.44 X10*6/uL (4.20-5.50); Red Cell Distribution Width 13.7 % (11.0-16.0); White Blood Count 7.5 X10*3/uL (4.8-10.8)
[2024-03-19 14:29] LABS: Parathyroid Hormone Intact 157.1 pg/mL (8.7-77.1)
[2024-03-19 14:34] LABS: Alanine Aminotransferase 35 U/L (0-31); Albumin Level 4.2 g/dL (3.5-5.0); Alkaline Phosphatase 136 U/L (39-117); Anion Gap 15 (12-20); Aspartate Amino Transferase 34 U/L (5-31); Bilirubin Total 0.3 mg/dL (0.0-1.0); Blood Urea Nitrogen 20 mg/dL (9-16); Calcium 9.8 mg/dL (8.4-10.2); Carbon Dioxide 22 mmol/L (22-29); Chloride 110 mmol/L (96-108); Cholesterol 209 mg/dL (<200); Estimated Glomerular Filt Rate > 60; Glucose Fasting 89 mg/dL (60-99); HDL Cholesterol 37 mg/dL (>40); LDL Cholesterol Calculated 141 mg/dL (<100); Sodium 143 mmol/L (135-145); Total Protein 7.4 g/dL (6.5-8.0); Triglycerides 157 mg/dL (<150)
[2024-03-19 14:44] LABS: Thyroid Stimulating Hormone 1.54 uIU/mL (0.32-4.0); Vitamin D 25-OH Total 40.5 ng/mL (>30)
[2024-03-20 21:48] LABS: IgA 244 mg/dL (70-320); IgG 1097 mg/dL (600-1540); IgM 128 mg/dL (50-300)
[2024-03-26 01:48] LABS: VITAMIN D (1,25 OH) D3 59 pg/mL; Vit D (1,25-Dihydroxy) Total 59 pg/mL (18-72); Vitamin D (1,25 OH) D2 <8 pg/mL
== END 2024-03-19 12:50 | disposition home or self-care (01) ==
LOC: HO.LAB 12:49
PROVIDERS: PCP Internal Medicine; Visit Provider Internal Medicine Nephrology
DX: E83.52 Hypercalcemia (principal); I12.9 Hypertensive chronic kidney disease with stage 1 through stage 4 chronic kidney disease, or unspecified chronic kidney disease; N18.31 Chronic kidney disease, stage 3a; D63.1 Anemia in chronic kidney disease; E03.9 Hypothyroidism, unspecified; E78.5 Hyperlipidemia, unspecified; N28.9 Disorder of kidney and ureter, unspecified
CPT/HCPCS: 36415; 80053; 80061; 82306; 82652; 82784; 83970; 84443; 85025; 86334

== ENCOUNTER 2024-03-20 10:43 | Outpatient (AMB) | payer MEDICARE, SELFPAY ==
[2024-03-20 11:15] VITALS: BP 126/60; PULSE 49; O2SAT 98; BMI 34.2
--- NOTE | 2024-03-20 11:15 | HO.NEPHOV ---
Vital Signs 03/20/24 11:15 Height 5 ft 2 in Weight 187 lb 2 oz BMI 34.2 BP 126/60 Blood Pressure Location Rt brachial Position Sitting Pulse 49 L Pulse Source Pulse Oximeter Pulse Oximetry (%) 98 Oxygen Delivery Method Room Air Intake Visit Reasons: 2Mon F/U- LVM Massage Therapy Instructor Required: No Accompanied by: Self / Same As Patient Allergies tramadol [TRAMADOL] Allergy (Severe, Verified 03/20/24 11:16) ANAPHYLAXIS ciprofloxacin [From CIPRO] Allergy (Intermediate, Verified 03/20/24 11:16) RENAL FUNCTION ISSUES Sulfa (Sulfonamide Antibiotics) Allergy (Unknown, Verified 03/20/24 11:16) Unknown HPI Comments Details: I would the delight of seeing Krista in follow-up of her mild CKD and hypertension. Her renal functions had been stable. Her heart rate had been in 40s. I had already D/Lee Clonidine. She denies any syncope, chest pain, shortness of breath, paroxysmal nocturnal dyspnea, orthopnea or orthostatic symptoms. She has no dysuria or hematuria. She is good with her diet and tries to minimize sodium intake. Her renal functions have been stable. [facility] Medical History Arthritis Anxiety Kidney disease Elevated cholesterol Cervical cancer screening Post-menopausal Screening for colon cancer Screening for diabetes mellitus Hypertension Surgical History Hx of bilateral cataract extraction Hx of eye surgery History of colonoscopy History of uterine fibroid H/O bilateral oophorectomy History of blepharoplasty History of removal of cyst Family History Father Hodgkin disease Mother Acute CVA (cerebrovascular accident) Sister Breast cancer Social History Household Members Other:: lives alone-disabled/ elderly community Housing: Apartment Alcohol intake: never Patient Tobacco Use Status: Never used Tobacco Tobacco use type: Cigarette e-Cigarette/Vaping Use: Never Used Second Hand Smoke Exposure: No service: No Current occupational status: disabled Cognitive needs: Yes (cane) Hearing needs: No Vision needs: Yes (Glasses) Review of Systems Const All systems reviewed & are unremarkable except as noted in HPI and below Physical Exam Vital Signs: Last Vital Signs Pulse 49 L 03/20/24 11:15 BP 126/60 03/20/24 11:15 Pulse Ox 98 03/20/24 11:15 Oxygen Delivery Method Room Air 03/20/24 11:15 BMI result Body Mass Index 34.2 Const General: comfortable and no acute distress Orientation/consciousness: patient oriented x3 HEENT Head: Yes normocephalic Mouth: Normal oral and palatal mucosa present Eyes EOM: EOMs intact bilaterally Neck Neck: Yes supple Resp Auscultation: clear to auscultation bilaterally Cardio Jugular venous distension: no JVD Rate: regular rate GI Palpation (GI): Soft to palpation Auscultation: normal bowel sounds General: Yes no CVA tenderness Back/Spine/Pelvis Back: no CVA tenderness Skin General skin exam: no rashes or lesions noted Neuro General: patient oriented x3 and moves all extremities Extrem General: Yes no pedal edema Results Reviewed Nephrology Results: Hgb 12.8 g/dl (12.0-16.0) 03/19/24 WBC 7.5 X10*3/uL (4.8-10.8) 03/19/24 Plt Count 243 X10*3/uL (160-400) 03/19/24 Sodium 143 mmol/L (135-145) 03/19/24 Potassium 4.0 mmol/L (3.3-5.1) 03/19/24 Chloride 110 mmol/L (96-108) H 03/19/24 Carbon Dioxide 22 mmol/L (22-29) 03/19/24 BUN 20 mg/dL (9-16) H 03/19/24 Creatinine 0.83 mg/dL (0.5-1.4) 03/19/24 Calcium 9.8 mg/dL (8.4-10.2) 03/19/24 PTH Intact 157.1 pg/mL (8.7-77.1) H 03/19/24 Assessment & Plan Assessment & Plan (1) Hypercalcemia: Code(s): E83.52 - Hypercalcemia Category: Medical (2) Hypertension: Code(s): I10 - Essential (primary) hypertension Category: Medical Qualifiers: Hypertension type: primary hypertension Qualified Code(s): I10 - Essential (primary) hypertension (3) Primary hyperparathyroidism: Code(s): E21.0 - Primary hyperparathyroidism Category: Medical Plan Krista's renal functions had been stable. She needs to lose some weight. She should maintain low-sodium diet. I reduced her metoprolol to 50 mg given her HR of 40 's. I will consider introducing low-dose JUAN M inhibitor with time. She tries to avoid nonsteroidal anti-inflammatories and maintains good hydration. I have asked her to hold her Calcium and vitamin D. I ordered Sestamibi scan. I asked her to increase hydration. I did not make any other changes today. Follow-up appointment given. Answered all questions Orders: Orders NM parathyroid Today E21.0 - Primary hyperparathyroidism Coding Level of Care Code Est Pt Level 4 (68478) Diagnoses Hypercalcemia E83.52 Primary hypertension I10 Hypertension type: primary hypertension Primary hyperparathyroidism E21.0
== END 2024-03-20 11:33 | disposition home or self-care (01) ==
PROVIDERS: PCP Internal Medicine; Visit Provider Internal Medicine Nephrology
DX: E83.52 Hypercalcemia (principal); E21.0 Primary hyperparathyroidism; I10 Essential (primary) hypertension
CPT/HCPCS: 99214

== ENCOUNTER → 2024-03-20 10:43 | Outpatient (BNVA) | payer MEDICARE, OTHER, SELFPAY | PROVIDERS: PCP Internal Medicine; Visit Provider Internal Medicine Nephrology | DX: E83.52 Hypercalcemia (principal); I10 Essential (primary) hypertension; E21.0 Primary hyperparathyroidism | CPT/HCPCS: 99212 ==

== ENCOUNTER → 2024-03-25 07:31 | Outpatient (REF) | payer MEDICARE, MEDICAID, SELFPAY ==
--- NOTE | ~2024-03-25 | NM_ITS ---
EXAMINATION: NM PARATHYROID SCAN CLINICAL INFORMATION: Primary hyperparathyroidism. COMPARISON: None available. TECHNIQUE: A double radionuclide study of the thyroid bed region and upper chest in multiple projections was performed 4 hours after the oral administration of 1.0 mCi I-123 sodium iodide and immediately following the intravenous administration of 30 mCi Tc-99m sestamibi. Repeat imaging was performed 2 hours later. The iodide images were electronically subtracted from the sestamibi images using different weighting factors. FINDINGS: There is homogeneous uptake of radioiodine throughout both lobes. The thyroid gland appears to be normal in size and shape. There are no focal areas of increased or diminished uptake. Technetium 99m sestamibi images demonstrate homogeneous thyroid activity. There are no focal areas of increased or decreased Technetium 99m sestamibi activity. Computer-generated digital subtraction images reveal no evidence of excess sestamibi activity. NM/NM parathyroid IMPRESSION: No evidence of excess sestamibi activity suggestive of parathyroid adenoma or hyperplasia. There is homogeneous uptake of radioiodine in the thyroid gland which is also normal in size and shape. Electronically signed by: Raheem Tamayo MD 03/31/2024 10:00 AM MARIN
== END ==
LOC: HO.NUCMED 07:31
PROVIDERS: PCP Internal Medicine; Visit Provider Internal Medicine Nephrology
DX: E21.0 Primary hyperparathyroidism (principal)
CPT/HCPCS: 78070; A9500; A9516

== ENCOUNTER 2024-04-01 09:47 | Outpatient (AMB) | payer MEDICARE, SELFPAY ==
--- NOTE | 2024-04-01 10:24 | HO.NEPHOV_ITS ---
Vital Signs 04/01/24 10:25 Height 5 ft 2 in Weight 186 lb 4 oz BMI 34.1 BP 136/62 Blood Pressure Location Rt brachial Position Sitting Pulse 50 Pulse Source Pulse Oximeter Pulse Oximetry (%) 98 Oxygen Delivery Method Room Air Intake Visit Reasons: Hypercalcemia-Conf Mitering Machine Operator Required: No Accompanied by: Self / Same As Patient Allergies tramadol [TRAMADOL] Allergy (Severe, Verified 04/01/24 10:25) ANAPHYLAXIS ciprofloxacin [From CIPRO] Allergy (Intermediate, Verified 04/01/24 10:25) RENAL FUNCTION ISSUES Sulfa (Sulfonamide Antibiotics) Allergy (Unknown, Verified 04/01/24 10:25) Unknown HPI Comments Details: I would the delight of seeing Krista in follow-up of her hyperparathyroidism and hypertension. Her renal functions had been stable. She denies any syncope, chest pain, shortness of breath, paroxysmal nocturnal dyspnea, orthopnea or orthostatic symptoms. She has no dysuria or hematuria. She is good with her diet and tries to minimize sodium intake. Her renal functions have been stable. [facility] Medical History Arthritis Anxiety Kidney disease Elevated cholesterol Cervical cancer screening Post-menopausal Screening for colon cancer Screening for diabetes mellitus Hypertension Surgical History Hx of bilateral cataract extraction Hx of eye surgery History of colonoscopy History of uterine fibroid H/O bilateral oophorectomy History of blepharoplasty History of removal of cyst Family History Father Hodgkin disease Mother Acute CVA (cerebrovascular accident) Sister Breast cancer Social History Household Members Other:: lives alone-disabled/ elderly community Housing: Apartment Alcohol intake: never Patient Tobacco Use Status: Never used Tobacco Tobacco use type: Cigarette e-Cigarette/Vaping Use: Never Used Second Hand Smoke Exposure: No service: No Current occupational status: disabled Cognitive needs: Yes (cane) Hearing needs: No Vision needs: Yes (Glasses) Review of Systems Const All systems reviewed & are unremarkable except as noted in HPI and below Physical Exam Vital Signs: Last Vital Signs Pulse 50 04/01/24 10:25 BP 136/62 04/01/24 10:25 Pulse Ox 98 04/01/24 10:25 Oxygen Delivery Method Room Air 04/01/24 10:25 BMI result Body Mass Index 34.1 Const General: comfortable and no acute distress Orientation/consciousness: patient oriented x3 HEENT Head: Yes normocephalic Mouth: Normal oral and palatal mucosa present Eyes EOM: EOMs intact bilaterally Neck Neck: Yes supple Resp Auscultation: clear to auscultation bilaterally Cardio Jugular venous distension: no JVD Rate: regular rate GI Palpation (GI): Soft to palpation Auscultation: normal bowel sounds General: Yes no CVA tenderness Back/Spine/Pelvis Back: no CVA tenderness Skin General skin exam: no rashes or lesions noted Neuro General: patient oriented x3 and moves all extremities Extrem General: Yes no pedal edema Results Reviewed Nephrology Results: Hgb 12.8 g/dl (12.0-16.0) 03/19/24 WBC 7.5 X10*3/uL (4.8-10.8) 03/19/24 Plt Count 243 X10*3/uL (160-400) 03/19/24 Sodium 143 mmol/L (135-145) 03/19/24 Potassium 4.0 mmol/L (3.3-5.1) 03/19/24 Chloride 110 mmol/L (96-108) H 03/19/24 Carbon Dioxide 22 mmol/L (22-29) 03/19/24 BUN 20 mg/dL (9-16) H 03/19/24 Creatinine 0.83 mg/dL (0.5-1.4) 03/19/24 Calcium 9.8 mg/dL (8.4-10.2) 03/19/24 PTH Intact 157.1 pg/mL (8.7-77.1) H 03/19/24 Assessment & Plan Assessment & Plan (1) Primary hyperparathyroidism: Code(s): E21.0 - Primary hyperparathyroidism Category: Medical (2) Hypertension: Code(s): I10 - Essential (primary) hypertension Category: Medical Qualifiers: Hypertension type: primary hypertension Qualified Code(s): I10 - Essential (primary) hypertension Plan Krista's renal functions had been stable. She needs to lose some weight. She should maintain low-sodium diet. I will consider introducing low-dose JUAN M inhibitor with time. She tries to avoid nonsteroidal anti-inflammatories and maintains good hydration. I have asked her to hold her Calcium and vitamin D for now. Her Sestamibi scan was negative. She may need Cinacalcet. I asked her to increase hydration. I did not make any other changes today. Answered all questions Orders: Orders Parathyroid Hormone Intact 6 Months E21.0 - Primary hyperparathyroidism, I10 - Essential (primary) hypertension Calcium 6 Months E21.0 - Primary hyperparathyroidism, I10 - Essential (primary) hypertension Blood Urea Nitrogen 6 Months E21.0 - Primary hyperparathyroidism, I10 - Essential (primary) hypertension Creatinine 6 Months E21.0 - Primary hyperparathyroidism, I10 - Essential (primary) hypertension Electrolytes 6 Months E21.0 - Primary hyperparathyroidism, I10 - Essential (primary) hypertension Coding Level of Care Code Est Pt Level 4 (60596) Diagnoses Primary hyperparathyroidism E21.0 Primary hypertension I10 Hypertension type: primary hypertension
[2024-04-01 10:25] VITALS: BP 136/62; PULSE 50; O2SAT 98; BMI 34.1
== END 2024-04-01 10:42 | disposition home or self-care (01) ==
PROVIDERS: PCP Internal Medicine; Visit Provider Internal Medicine Nephrology
DX: E21.0 Primary hyperparathyroidism (principal); I10 Essential (primary) hypertension
CPT/HCPCS: 99214

== ENCOUNTER → 2024-04-01 09:47 | Outpatient (BNVA) | payer MEDICARE, OTHER, SELFPAY | PROVIDERS: PCP Internal Medicine; Visit Provider Internal Medicine Nephrology | DX: E21.0 Primary hyperparathyroidism (principal); I10 Essential (primary) hypertension | CPT/HCPCS: 99212 ==

== ENCOUNTER 2024-07-03 11:27 | Outpatient (AMB) | payer MEDICARE, MEDICAID, SELFPAY ==
[2024-07-03 11:29] VITALS: BP 150/78; PULSE 47; O2SAT 98; BMI 33.8
--- NOTE | 2024-07-03 11:29 | A.OFFPC_ITS ---
Vital Signs 07/03/24 11:29 Height 5 ft 2 in Weight 185 lb BMI 33.8 BP 150/78 H Blood Pressure Location Lt brachial Position Sitting Pulse 47 L Pulse Source Pulse Oximeter Pulse Oximetry (%) 98 Oxygen Delivery Method Room Air Intake Visit Reasons: 3 mth f/u Allergies tramadol [TRAMADOL] Allergy (Severe, Verified 07/03/24 11:29) ANAPHYLAXIS ciprofloxacin [From CIPRO] Allergy (Intermediate, Verified 07/03/24 11:29) RENAL FUNCTION ISSUES Sulfa (Sulfonamide Antibiotics) Allergy (Unknown, Verified 07/03/24 11:29) Unknown Medication List - Last Reconciled 07/06/24 by Jose Navarrete MD acetaminophen 1,000 mg (2 x 500 mg) PO Q6H PRN amlodipine 10 mg PO DAILY aspirin (Adult Low Dose Aspirin) 81 mg PO DAILY cyclobenzaprine 5 mg PO BEDTIME fluoxetine (Prozac) 20 mg PO DAILY furosemide 40 mg PO DAILY metoprolol succinate ER 50 mg PO DAILY multivitamin 1 tab PO QAM pravastatin 40 mg PO DAILY Tobacco use date assessed: 07/03/24 Fall risk assessment: No Falls in past year Last assessed Fall Risk: 07/03/24 Dental Screening Dental Screen Date: 07/03/24 Did you have a dental visit in the last 12 months?: Yes Did you have a dental problem in the last 6 months where you did not have access to dental care?: No Was dental information given to patient?: Patient has dentist HPI 3 mth f/u HPI Details HTN and hyperlipidemia on rx; doing well; legally blind [facility] Medical History Arthritis Anxiety Kidney disease Elevated cholesterol Cervical cancer screening Post-menopausal Screening for colon cancer Screening for diabetes mellitus Hypertension Surgical History Hx of bilateral cataract extraction Hx of eye surgery History of colonoscopy History of uterine fibroid H/O bilateral oophorectomy History of blepharoplasty History of removal of cyst Family History Father Hodgkin disease Mother Acute CVA (cerebrovascular accident) Sister Breast cancer Social History Household Members Other:: lives alone-disabled/ elderly community Housing: Apartment Alcohol intake: never Patient Tobacco Use Status: Never used Tobacco Tobacco use type: Cigarette e-Cigarette/Vaping Use: Never Used Second Hand Smoke Exposure: No service: No Current occupational status: disabled Cognitive needs: Yes (cane) Hearing needs: No Vision needs: Yes (Glasses) Questionnaire PHQ-9 Over the last 2 weeks, how often have you been bothered by any of the following problems? 1. Little interest or pleasure in doing things: not at all 2. Feeling down, depressed, or hopeless: not at all 3. Trouble falling or staying asleep, or sleeping too much: not at all 4. Feeling tired or having little energy: not at all 5. Poor appetite or overeating: not at all 6. Feeling bad about yourself - or that you are a failure or have let yourself or your family down: not at all 7. Trouble concentrating on things, such as reading the newspaper or watching television: not at all 8. Moving or speaking so slowly that other people could have noticed. Or the opposite - being so fidgety or restless that you have been moving around a lot more than usual: not at all 9. Thoughts that you would be better off or of hurting yourself in some way: not at all Total score: 0 Depression Screening Interpretation: Negative Depression Screening Done: Yes 74540 - PHQ-9 Billing: Yes Source: Developed by Drs. North Cazares, Ann Mccall, Vladimir Malone and colleagues, with an educational hernandez from [employer]. Thrive Questionnaire Date Thrive assessed: 07/03/24 I am a: Patient What is your living situation today?: I have a steady place to live Within the past 12 months, did the food you bought not last and you didn't have the money to get more?: Never true Within the past 12 months, did you worry whether your food would run out before you got money to buy more?: Never true Do you have trouble paying for medicines?: No Do you have trouble getting transportation to medical appointments?: No Do you have trouble paying your heating and electricity bill?: No Do you have trouble taking care of your child, family member or friend?: No Do you have trouble with day-to-day activities such as bathing, preparing meals, shopping, managing finances, etc.?: No Are you currently unemployed and looking for a job?: No Are you interested in more education?: No Please select the resources that you would like help with: None Currently or been in a relationship where the following occur: No concerns reported THRIVE Score: 0 AUDIT C Alcohol Use Questionnaire (AUDIT-C) 1. How often do you have a drink containing alcohol?: Never 3. How often do you have six or more drinks on one occasion?: Never Total Score: 0 Score Reviewed/Action Taken: Yes SAGAR-7 AMB Questionnaire SAGAR-7 Date SAGAR - 7 assessed: 07/03/24 Feeling nervous, anxious, or on edge: 0 = Not at all Not being able to stop or control worryin = Not at all Worrying too much about different things: 0 = Not at all Trouble relaxin = Not at all Being so restless that it is hard to sit still: 0 = Not at all Becoming easily annoyed or irritable: 0 = Not at all Feeling afraid as if something awful might happen: 0 = Not at all Total SAGAR-7 score (0-4 normal; 5-9 mild; 10-14 moderate; 15-21 severe): 0 Source: Developed by Drs. North Cazares, Ann Mccall, Vladimir Malone and colleagues, with an educational hernandez from [employer]. SAGAR-7 Assessment Billing SAGAR-7 Assessment Tool: SAGAR-7 Assessment 35721 Review of Systems Const Denies chills, Denies headache(s) and Denies weight loss ENT Denies headache(s) Card Denies chest pain, Denies syncope, Denies irregular heart rhythm and Denies dyspnea Resp Denies chest congestion, Denies cough and Denies dyspnea GI Denies abdominal pain, Denies change in stool character, Denies nausea and Denies vomiting Musc Denies deformity and Denies joint swelling Neuro Denies syncope and Denies headache(s) Physical exam (Primary Care) Vital Signs: Last Vital Signs Pulse 47 L 07/03/24 11:29 BP 150/78 H 07/03/24 11:29 Pulse Ox 98 07/03/24 11:29 Oxygen Delivery Method Room Air 07/03/24 11:29 BMI result Body Mass Index 33.8 Tobacco/Smoking Status: Tobacco use Status Tobacco use date assessed 07/03/24 07/03/24 11:31 Patient Tobacco Use Status Never used Tobacco 07/03/24 11:31 Tobacco use type Cigarette 07/03/24 11:31 e-Cigarette/Vaping Use Never Used 07/03/24 11:31 PHQ-9: PHQ-9 Score PHQ-9: Total score 0 07/03/24 11:31 Depression Screening Interpretation: Negative Thrive Assessment: Date of Thrive Assessment Date Thrive assessed 07/03/24 07/03/24 11:31 Currently or been in a relationship where the following occur: No concerns reported Const General: cooperative, comfortable, no acute distress and alert Neck Neck: Yes no lymphadenopathy Thyroid: Thyroid normal Resp Effort & Inspection: normal respiratory effort Auscultation: clear to auscultation bilaterally Percussion: percussion normal Cardio Jugular venous distension: no JVD Palpation: normal PMI Rate: regular rate Rhythm: regular rhythm Heart sounds: S1 normal heart sound present and S2 normal heart sound present GI Inspection: Yes normal to inspection Palpation (GI): No hepatosplenomegaly present Skin General skin exam: no rashes or lesions noted Extrem General: Yes no clubbing, cyanosis or edema Coding Level of Care Code Est Pt Level 3 (62308) Diagnoses Hyperlipidemia E78.5 Primary hypertension I10 Hypertension type: primary hypertension Additional Codes SAGAR-7 Assessment Billing - SAGAR-7 Assessment Tool: SAGAR-7 Assessment 05274 ([id number]) PHQ-9 - 14615 - PHQ-9 Billing: Yes ([id number]) Assessment & Plan Assessment & Plan (1) Hyperlipidemia: Code(s): E78.5 - Hyperlipidemia, unspecified Category: Medical Plan: stable; same rx (2) Hypertension: Code(s): I10 - Essential (primary) hypertension Category: Medical Qualifiers: Hypertension type: primary hypertension Qualified Code(s): I10 - Essential (primary) hypertension Plan: stable; same rx
--- OUTSIDE RECORDS SUMMARY | 2024-07-03 12:35 | XMS_ITS | Clinical Summary ---
Author Organization [facility] Address [address] [place] [address] Phone Care Team Providers Care Profiling Machine Set Up Operator Tool Name Role Phone Jose Navarrete MD Primary Care Provider [phone] Allergies Active Allergy Reactions Criticality Noted Date Comments Tramadol 02/08/2021 Medications amLODIPine (NORVASC) 5 MG tablet Take 2 tablets by mouth 1 (one) time each day Active aspirin (ST JESUS) 81 MG EC tablet Take 1 tablet by mouth every morning Active FLUoxetine (PROzac) 20 MG capsule Take 1 capsule by mouth 1 (one) time each day Active metoprolol succinate XL (TOPROL-XL) 100 MG 24 hr tablet Take 1 tablet by mouth 1 (one) time each day Active pravastatin (PRAVACHOL) 20 MG tablet Take 1 tablet by mouth 1 (one) time each day Active furosemide (LASIX) 40 MG tablet Take 40 mg by mouth 1 (one) time each day 12/06/2022 Active Multiple Vitamin (Multivitamin) tablet Take 1 tablet by mouth 1 (one) time each day 11/17/2022 Active Calcium Carb-Cholecalci ferol (Oyster Shell Calcium w/D) 500-5 MG-MCG tablet Take 1 tablet by mouth 1 (one) time each day 11/17/2022 Active cloNIDine (CATAPRES) 0.1 MG tablet Take 1 tablet (0.1 mg total) by mouth in the morning and 1 tablet (0.1 mg total) in the evening. 180 tablet 3 07/06/2023 Active Active Problems Problem Noted Date Diagnosed Date Hypertension 02/08/2021 Acute nontraumatic kidney injury 08/10/2020 Stage 3a chronic kidney disease 08/10/2020 Hypertensive chronic kidney disease, unspecified, with chronic kidney disease stage I through stage IV, or unspecified 08/10/2020 Family History Medical History Relation Comments Cancer Father Hypertension Father Stroke Mother Relation Status Comments Father Mother Social History Tobacco Use Types Packs/Day Years Used Date Smoking Tobacco: Never Smokeless Tobacco: Never Tobacco Cessation:Counseling Given: Not Answered Alcohol Use Standard Drinks/Week Comments No 0 (1 standard drink = 0.6 oz pur e alcohol) Comments Unknown Sex and Gender Information Value Date Recorded Sex Assigned at Not on file Legal Sex Female 5:04 PM EST Gender Identity Not on file Sexual Orientation Not on file Last Filed Vital Signs Vital Sign Reading Time Taken Comments Blood Pressure 100/60 12/26/2022 3:24 PM EDT Pulse 49 02/07/2022 2:02 PM EDT Temperature - - Respiratory Rate - - Oxygen Saturation 98% 02/07/2022 2:02 PM EDT Inhaled Oxygen Concentration - - Weight 83.7 kg (184 lb 9.6 oz) 12/26/2022 3:24 P M EDT Height 154.9 cm (5' 1 ) 01/08/2020 12:00 PM EDT Body Mass Index 34.88 01/08/2020 12:00 PM EDT Plan of Treatment Health Maintenance Due Date Last Done Comments Breast Cancer Screening 1950 Pneumococcal Vaccine: 65+ Ye ars (1 of 2 - PCV) 1957 Colorectal Cancer Screening: Annual FOBT 2000 Colorectal Cancer Screening: Colonoscopy 2000 Colorectal Cancer Screening: Sigmoidoscopy 2000 Influenza Vaccine (#1) 2024 Hepatitis B Vaccine Aged Out No longe r eligible based on patient's age to complete this topic Insurance [place]IC[place]ID [place] Care Teams Profiling Machine Set Up Operator Tool Relationship Specialty Start Date End Date Jose Navarrete MD [address] [place], [place] PCP - General 05/23/20
--- OUTSIDE RECORDS SUMMARY | 2024-07-03 12:35 | XMS_ITS | Encounter Summary ---
Author Organization [facility] Address [address] [place] [address] Phone Care Team Providers Care Configuration Specialist Name Role Phone Jose Navarrete MD Primary Care Provider [phone] Reason for Visit * Reason Comments Med Refill Encounter Details Date Type Department Care Team (Late st Contact Info) Description 02/14/2023 Refill [facility] [address] [place] [address] Keyshawn Palmer MD Social History Tobacco Use Types Packs/Day Years Used Date Smoking Tobacco: Never Smokeless Tobacco: Never Alcohol Use Standard Drinks/Week Comments No 0 (1 standard drink = 0.6 oz pur e alcohol) Comments Unknown Sex and Gender Information Value Date Recorded Sex Assigned at Not on file Legal Sex Female 5:04 PM EST Gender Identity Not on file Sexual Orientation Not on file documented as of this encounter Plan of Treatment Not on file documented as of this encounter Visit Diagnoses Not on filedocumented in this encounter Care Teams Configuration Specialist Relationship Specialty Start Date End Date Jose Navarrete MD [id number] [place], [place] PCP - General 05/23/20 documented as of this encounter
--- OUTSIDE RECORDS SUMMARY | 2024-07-03 12:35 | XMS_ITS | Encounter Summary ---
Author Organization [facility] Address [address] [place] [address] Phone Care Team Providers Care Hand Hide Stretcher Name Role Phone Jose Navarrete MD Primary Care Provider [phone] Encounter Details Date Type Department Care Team (Late st Contact Info) Description 08/15/2022 Telephone [facility] [address] [place] [address] Connie Fraire Social History Tobacco Use Types Packs/Day Years [...] on file documented as of this encounter Miscellaneous Notes * Telephone Encounter - Connie Fraire - 08/15/2022 2:10 PM EDT PT missed her shuttle bus, she will not make it to her appointment for today 08/15/22. documented in this encounter Plan of Treatment Not on file documented as of this encounter Visit Diagnoses Not on filedocumented in this encounter Care Teams Hand Hide Stretcher Relationship Specialty Start Date End Date Jose Navarrete MD [address] [place], [place] PCP - General 05/23/20 documented as of this encounter
== END 2024-07-03 11:53 | disposition home or self-care (01) ==
PROVIDERS: PCP Internal Medicine; Visit Provider Internal Medicine
DX: E78.5 Hyperlipidemia, unspecified (principal); I10 Essential (primary) hypertension

== ENCOUNTER → 2024-07-03 11:27 | Outpatient (BNVA) | payer MEDICARE, MEDICAID, SELFPAY | PROVIDERS: PCP Internal Medicine; Visit Provider Internal Medicine | DX: E78.5 Hyperlipidemia, unspecified (principal); I10 Essential (primary) hypertension | CPT/HCPCS: 96127; 99212 ==

== ENCOUNTER 2024-09-09 09:02 | Outpatient (REF) | payer MEDICARE, MEDICAID, SELFPAY ==
--- NOTE | ~2024-09-09 | XR_ITS ---
EXAMINATION: XR HAND 3 OR MORE VIEWS LEFT HISTORY: M79.642 - Pain in left hand COMPARISON: There are no prior studies available for comparison. FINDINGS: Three views of the left hand are submitted. The examination is limited by flexion of the middle finger on all images. The bones are osteopenic. There is no fracture or dislocation. The joint spaces are preserved. The soft tissues are unremarkable. XR/XR hand LT min 3V IMPRESSION: Osteopenia. Flexion of the middle finger on all images. No evidence of fracture of the left hand. Electronically signed by: North Urias MD 09/10/2024 03:34 PM EDT
--- OUTSIDE RECORDS SUMMARY | 2024-09-09 09:30 | XMS_ITS | Encounter Summary ---
Author Organization [facility] Address [address] [place] [address] Phone Care Team Providers Care Pickup Driver Name Role Phone Jose Navarrete MD Primary Care Provider [phone] Encounter Details Date Type Department Care Team (Late st Contact Info) Description 08/15/2022 Telephone [facility] [address] [place] [address] Connie Fraire Social History Tobacco [...] on filedocumented in this encounter Care Teams Pickup Driver Relationship Specialty Start Date End Date Jose Navarrete MD [address] [place], [place] PCP - General 05/23/20 documented as of this encounter
--- OUTSIDE RECORDS SUMMARY | 2024-09-09 09:30 | XMS_ITS | Encounter Summary ---
Author Organization [facility] Address [address] [place] [address] Phone Care Team Providers Care Hand Stonecutter Name Role Phone Jose Navarrete MD Primary Care Provider [phone] Reason for Visit * Reason Comments Med Refill Encounter Details Date Type Department Care Team (Late st Contact Info) Description 02/14/2023 Refill [facility] [address] [place] [address] Keyshawn Palmer MD Social History [...] filedocumented in this encounter Care Teams Hand Stonecutter Relationship Specialty Start Date End Date Jose Navarrete MD [address] [place], [place] PCP - General 05/23/20 documented as of this encounter
--- OUTSIDE RECORDS SUMMARY | 2024-09-09 09:30 | XMS_ITS | Clinical Summary ---
Author Organization [facility] Address [address] [place] [address] Phone Care Team Providers Care Warehouse Specialist Name Role Phone Jose Navarrete MD Primary Care Provider [phone] Allergies Active Allergy Reactions Criticality Noted Date [...] Comments Breast Cancer Screening 1950 Pneumococcal Vaccine: 50+ Ye ars (1 of 2 - PCV) 1970 Colorectal Cancer Screening: Annual FOBT 2000 Colorectal Cancer Screening: Colonoscopy 2000 Colorectal Cancer Screening: Sigmoidoscopy 2000 Influenza Vaccine (Season Ended) 2025 Hepatitis B Vaccine Aged Out No longe r eligible based on patient's age to complete this topic Insurance , [address] [id number] [place] , [address] [address] Medicare Medicaid [place] Care Teams Warehouse Specialist Relationship Specialty Start Date End Date Jose Navarrete MD [address] [place], [place] PCP - General 05/23/20
== END 2024-09-09 09:03 | disposition home or self-care (01) ==
LOC: HO.HOSX 09:02
DX: M79.642 Pain in left hand (principal); M65.332 Trigger finger, left middle finger; M85.842 Other specified disorders of bone density and structure, left hand
CPT/HCPCS: 73130; 99202

== ENCOUNTER 2024-09-09 13:50 | Outpatient (AMB) | payer MEDICARE, MEDICAID, SELFPAY ==
--- NOTE | 2024-09-09 13:53 | A.OFFVIS_ITS ---
Intake Visit Reasons: Newprob-Left hand, Ring finger-Bending limited Intake Note: Krista is a 74 year old right hand dominant female who presents today for a new problem visit with complaints of left hand ring finger pain and limited ROM. Patient reports that she has had locking and catching of the left middle finger. This has been ongoing and worsening for about 3 months now. She has had no previous treatments for the finger. Denies numbness and tingling. Allergies tramadol [TRAMADOL] Allergy (Severe, Verified 07/03/24 11:29) ANAPHYLAXIS ciprofloxacin [From CIPRO] Allergy (Intermediate, Verified 07/03/24 11:29) RENAL FUNCTION ISSUES Sulfa (Sulfonamide Antibiotics) Allergy (Unknown, Verified 07/03/24 11:29) Unknown HPI HPI Newprob-Left hand, Ring finger-Bending limited: Details: Krista is a 74 year old right hand dominant female who presents today for a new problem visit with complaints of left hand ring finger pain and limited ROM. Patient reports that she has had locking and catching of the left middle finger. This has been ongoing and worsening for about 3 months now. She has had no previous treatments for the finger. Denies numbness and tingling. FOR[facility]LY [facility] Medical History Arthritis Anxiety Kidney disease Elevated cholesterol Cervical cancer screening Post-menopausal Screening for colon cancer Screening for diabetes mellitus Hypertension Surgical History Hx of bilateral cataract extraction Hx of eye surgery History of colonoscopy History of uterine fibroid H/O bilateral oophorectomy History of blepharoplasty History of removal of cyst Family History Father Hodgkin disease Mother Acute CVA (cerebrovascular accident) Sister Breast cancer Social History Household Members Other:: lives alone-disabled/ elderly community Housing: Apartment Alcohol intake: never Patient Tobacco Use Status: Never used Tobacco Tobacco use type: Cigarette e-Cigarette/Vaping Use: Never Used Second Hand Smoke Exposure: No Advance Directives: No Advance Directives Information Provided: Yes service: No Current occupational status: disabled Cognitive needs: Yes (cane) Hearing needs: No Vision needs: Yes (Glasses) Review of Systems Const All systems reviewed & are unremarkable except as noted in HPI and below Physical Exam Extrem Other: Patient is alert, oriented, and in no acute distress. Neuro: Normal sensation of the tips of all digits of the left hand at this time Vascular: Cap refill brisk Pain: Significant pain with attempted full passive extension of the left middle finger Tenderness to palpation of the A1 chuck of the left middle finger ROM: Left middle finger stuck in a flexed position, unable to either actively or passively fully extend due to pain Patient is able to flex and extend all other digits of the left hand fully and without difficulty Skin: No lacerations or abrasions. General: No ecchymosis, erythema, or evidence of infection. Psych: Appears grossly normal Affect normal Attitude cooperative Results Reviewed Results Reviewed: X-rays obtained in the office today and independently reviewed by me, Abisai Enciso PA-C, demonstrate no fracture or acute bony abnormality of the left hand. Assessment & Plan Assessment & Plan (1) Trigger finger, left middle finger: Code(s): M65.332 - Trigger finger, left middle finger Category: Medical Plan 1. Left middle finger stuck trigger finger I educated the patient about the condition. I discussed both operative and nonoperative treatment options. The patient would like to proceed with surgery. The risks and benefits of operative treatment were discussed with the patient and the patient wishes to proceed with surgery. These risks include, but are not limited to, risk of damage to blood vessels, nerves, tendons, infection, recurrence, incomplete relief of preoperative symptoms, persistent pain, possible need for further surgery, and the risks associated with regional blocks and/or anesthesia. Plan is to take the patient to the operating room at some point in the next few weeks for the following procedures: 1. Left middle finger trigger release under local All of the preoperative paperwork including the consent was discussed today. All of the patient's questions were answered in the clinic today. The patient understands that they will be in contact with our surgical technology instructor to discuss scheduling their procedure. Patient denies diabetes, blood thinners, asthma, heart issues, lung issues, kidney issues, or current smoking. Orders: Orders XR hand LT min 3V 09/09/24 M79.642 - Pain in left hand Coding Level of Care Code New Pt Level 4 (53238) Diagnoses Trigger finger, left middle finger M65.332
--- OUTSIDE RECORDS SUMMARY | 2024-09-09 15:05 | XMS_ITS | Clinical Summary ---
Author Organization [facility] Address [address] [place] [address] Phone Care Team Providers Care Instructor Kindergarten Name Role Phone Jose Navarrete MD Primary Care Provider [phone] Allergies Active Allergy Reactions Criticality Noted Date [...] age to complete this topic Insurance , [address] [address] Medicare Medicaid [place] , [address] [address] Medicare Medicaid [place] Care Teams Instructor Kindergarten Relationship Specialty Start Date End Date Jose Navarrete MD [address] [place], [place] PCP - General 05/23/20
--- OUTSIDE RECORDS SUMMARY | 2024-09-09 15:05 | XMS_ITS | Encounter Summary ---
Author Organization [facility] Address [address] [place] [address] Phone Care Team Providers Care Concrete Placement Equipment Operator Name Role Phone Jose Navarrete MD Primary Care Provider [phone] Encounter Details Date Type Department Care Team (Late st Contact Info) Description 08/15/2022 Telephone [facility] [address] [place] [address] Connie Fraire Social History Tobacco [...] on filedocumented in this encounter Care Teams Concrete Placement Equipment Operator Relationship Specialty Start Date End Date Jose Navarrete MD [address] [place], [place] PCP - General 05/23/20 documented as of this encounter
--- OUTSIDE RECORDS SUMMARY | 2024-09-09 15:05 | XMS_ITS | Encounter Summary ---
Author Organization [facility] Address [address] [place] [address] Phone Care Team Providers Care Obstetrics Gyn Name Role Phone Jose Navarrete MD Primary Care Provider [phone] Reason for Visit * Reason Comments Med Refill Encounter Details Date Type Department Care Team (Late st Contact Info) Description 02/14/2023 Refill [facility] [address] [place] [address] Keyshawn Palmer MD Social History [...] on filedocumented in this encounter Care Teams Obstetrics Gyn Relationship Specialty Start Date End Date Jose Navarrete MD [address] [place], [place] PCP - General 05/23/20 documented as of this encounter
== END 2024-09-09 14:41 | disposition home or self-care (01) ==
LOC: HO.HOS 13:51
PROVIDERS: PCP Internal Medicine
DX: M65.332 Trigger finger, left middle finger (principal)
CPT/HCPCS: 99204

== ENCOUNTER → 2024-09-09 13:51 | Outpatient (BNV) | payer MEDICARE, MEDICAID, SELFPAY | PROVIDERS: Visit Provider Radiology Diagnostic Radiology | DX: M85.842 Other specified disorders of bone density and structure, left hand (principal) | CPT/HCPCS: 73130 ==

== ENCOUNTER 2024-09-14 12:25 | Day surgery (SDC) | payer MEDICARE, MEDICAID, SELFPAY ==
--- OUTSIDE RECORDS SUMMARY | 2024-09-10 10:18 | XMS_ITS | Encounter Summary ---
Author Organization [facility] Address [address] [place] [address] Phone Care Team Providers Care Filter Tank Tender Helper Head Name Role Phone Jose Navarrete MD Primary Care Provider [phone] Encounter Details Date Type Department Care Team (Late st Contact Info) Description 08/15/2022 Telephone [facility] [address] [place] [address] Connie Fraire Social History Tobacco [...] on filedocumented in this encounter Care Teams Filter Tank Tender Helper Head Relationship Specialty Start Date End Date Jose Navarrete MD [address] [place], [place] PCP - General 05/23/20 documented as of this encounter
--- OUTSIDE RECORDS SUMMARY | 2024-09-10 10:18 | XMS_ITS | Clinical Summary ---
Author Organization [facility] Address [address] [place] [address] Phone Care Team Providers Care Emergency Management Coordinator Name Role Phone Jose Navarrete MD Primary Care Provider [phone] Allergies Active Allergy Reactions Criticality Noted Date [...] age to complete this topic Insurance , [address] [address] Medicare Medicaid [place] , [address] [address] Medicare Medicaid [place] Care Teams Emergency Management Coordinator Relationship Specialty Start Date End Date Jose Navarrete MD [address] [place], [place] PCP - General 05/23/20
--- OUTSIDE RECORDS SUMMARY | 2024-09-10 10:18 | XMS_ITS | Encounter Summary ---
Author Organization [facility] Address [address] [place] [address] Phone Care Team Providers Care Electric Well Logging Operator Name Role Phone Jose Navarrete MD Primary Care Provider [phone] Reason for Visit * Reason Comments Med Refill Encounter Details Date Type Department Care Team (Late st Contact Info) Description 02/14/2023 Refill [facility] [address] [place] [address] Keyshawn Palmer MD Social History [...] on filedocumented in this encounter Care Teams Electric Well Logging Operator Relationship Specialty Start Date End Date Jose Navarrete MD [address] [place], [place] PCP - General 05/23/20 documented as of this encounter
[2024-09-14 13:31] VITALS: BMI 33.3
[2024-09-14 13:32] VITALS: BP 171/52; PULSE 45; RESP 18; TEMP 36.4; O2SAT 100
--- NOTE | 2024-09-14 14:35 | MHC.SHP ---
Pre-Procedural Eval Section A - 24 Hr Update-Section A only Date of Service: 09/14/24 The patient is an INPATIENT: No Changes since office visit: No Cold of Flu in the past 2 weeks, No New Medical Problems, No Changes in Medication and No Patient answered all questions The patient has been examined within 24 hours of the surgical procedure. The History & Physical has been completed within 30 days and I have reviewed it.: Yes Section B - Complete if H&P > 30 days Chief Complaint: Trigger finger, left middle finger Details of Present Illness: Left middle finger trigger Allergies: Allergies Allergy/AdvReac Type Severity Reaction Status Date / Time tramadol [TRAMADOL] Allergy Severe ANAPHYLAXIS Verified 07/03/24 11:29 ciprofloxacin [From CIPRO] Allergy Intermediate RENAL Verified 07/03/24 11:29 FUNCTION ISSUES Sulfa (Sulfonamide Allergy Unknown Unknown Verified 07/03/24 11:29 Antibiotics) Plan Diagnosis/Plan: Unchanged I have reviewed the history and physical and performed a pertinent physical examination on my patient. No changes have occurred unless specified. Time Spent With Patient Time: Total time managing care of this patient today ____ minutes.
--- NOTE | 2024-09-14 14:36 | P.OP_ITS ---
Operative Note Operative Note Date of Service: 09/14/24 Narrative: Operative Note Preop diagnosis: 1. Left middle finger locked trigger finger Postop diagnosis: Same Procedure: 1. Left middle finger A1 chuck release Surgeon: Denia Pérez MD Field Representative: None Anesthesia: local block using 1% lidocaine with epinephrine Findings: No locking or catching after A1 chuck release EBL: Less than 5 mL Tourniquet time: None Specimens: None Complications: None Disposition: Brought to recovery room in stable condition Plan: Follow-up for 10-14 days for wound check and suture removal She may benefit from early OT hand therapy if she has some tightness on the vola r side of the PIP joint. Indications: The patient is 74 years old, with a left middle finger locked in about 90 degrees of PIP flexion for about 2 months, that has been unresponsive to nonoperative management. The risks and benefits of operative treatment including but not limited to risk of damage to blood vessels, nerves, tendons, infection, persistent pain, persistent symptoms, recurrence or possible need for additional surgery were discussed with the patient and the patient wishes to proceed with surgery. Procedure: Once consent was obtained a local block was performed in the preop area using a combination of 1% lidocaine with epinephrine. The patient was then brought back to the operating suite and placed on the operative table in supine position. The left upper extremity was prepped and draped in a standard surgical fashion. Once assured that we had a good block, a 1.5 cm oblique incision was made centered over the A1 chuck of the left middle finger . The incision was made through the skin to the subcutaneous tissues using a #15 blade. Careful dissection was made down to the level of the A1 chuck using tenotomy scissors, with care being taken to protect the nearby neurovascular structures. A longitudinal incision was made in the A1 chuck 1st using a #15 blade, then using tenotomy scissors under direct visualization. The A1 chuck was noted to be thickened, and there was a significant hourglass deformity of the FDS and FDP tendons. I was happy to then be able to fully extend the middle finger.. Following our A1 chuck release, we no longer saw any locking or catching of the digit with flexion and extension. She does have some mild tightness on the flexor side of the PIP joint. I explained to her that she should do frequent exercises bring the finger back into extension and flexion. Once satisfied with our A1 chuck release the wound was copiously irrigated with normal saline and hemostasis was obtained with a brief period of local pressure. The skin edges were reapproximated with some 5.0 nylon suture material and a sterile dressing was applied. The patient appears to have tolerated the procedure well and with no complica tions. All digits were well vascularized at the conclusion of the case.
[2024-09-14 15:32] VITALS: BP 154/57; PULSE 53; RESP 16; O2SAT 99
== END 2024-09-14 15:33 | disposition home or self-care (01) ==
PROVIDERS: Visit Provider Orthopaedic Surgery
PROC: (CPT 26055; principal; 2024-09-14 14:10)
DX: M65.332 Trigger finger, left middle finger (principal); M79.644 Pain in right finger(s); I10 Essential (primary) hypertension; E78.00 Pure hypercholesterolemia, unspecified; N28.9 Disorder of kidney and ureter, unspecified; Z88.1 Allergy status to other antibiotic agents; Z88.2 Allergy status to sulfonamides; Z88.5 Allergy status to narcotic agent; Z98.890 Other specified postprocedural states
CPT/HCPCS: 26055; J0171; J2003

== ENCOUNTER → 2024-09-14 12:25 | Outpatient (BNV) | payer MEDICARE, MEDICAID, SELFPAY | PROVIDERS: Visit Provider Orthopaedic Surgery | DX: M65.332 Trigger finger, left middle finger (principal) | CPT/HCPCS: 26055 ==

== ENCOUNTER 2024-09-29 13:34 | Outpatient (AMB) | payer MEDICARE, MEDICAID, SELFPAY ==
--- NOTE | 2024-09-29 14:07 | A.OFFVIS_ITS ---
Vital Signs 09/29/24 14:07 Height 5 ft 2 in Intake Visit Reasons: PO LT MF trigger 09/14/24 AR Intake Note: Krista is a 74 year old - hand dominant female who presents today post- operatively status post left middle finger trigger release, DOS: 09/14/[address] Pérez. Allergies tramadol [TRAMADOL] Allergy (Severe, Verified 09/29/24 14:10) ANAPHYLAXIS ciprofloxacin [From CIPRO] Allergy (Intermediate, Verified 09/29/24 14:10) RENAL FUNCTION ISSUES Sulfa (Sulfonamide Antibiotics) Allergy (Unknown, Verified 09/29/24 14:10) Unknown HPI HPI PO LT MF trigger 09/14/24 AR: Details: Krista is a 74 year old - hand dominant female who presents today post- operatively status post left middle finger trigger release, DOS: 09/14/[address] Pérez. No further locking or catching noted of the left middle finger. No numbness or tingling. No other acute complaints or concerns at this time. PFSH Medical History Arthritis Anxiety Kidney disease Elevated cholesterol Cervical cancer screening Post-menopausal Screening for colon cancer Screening for diabetes mellitus Hypertension Surgical History Hx of bilateral cataract extraction Hx of eye surgery History of colonoscopy History of uterine fibroid H/O bilateral oophorectomy History of blepharoplasty History of removal of cyst Family History Father Hodgkin disease Mother Acute CVA (cerebrovascular accident) Sister Breast cancer Social History Household Members Other:: lives alone-disabled/ elderly community Housing: Apartment Alcohol intake: never Patient Tobacco Use Status: Never used Tobacco Tobacco use type: Cigarette e-Cigarette/Vaping Use: Never Used Second Hand Smoke Exposure: No service: No Current occupational status: disabled Cognitive needs: Yes (cane) Hearing needs: No Vision needs: Yes (Glasses) Review of Systems Const All systems reviewed & are unremarkable except as noted in HPI and below Physical Exam Extrem Other: Patient is alert, oriented, and in no acute distress. Neuro: Normal sensation of the tips of all digits of the left hand at this time Vascular: Cap refill brisk Pain: No Tenderness to palpation of the A1 chuck of the left middle finger ROM: Patient is able to flex and extend all digits of the left hand fully and without difficulty Skin: Well approximated and well healing incision noted on the A1 chuck of the L MF No lacerations or abrasions. General: No ecchymosis, erythema, or evidence of infection. Psych: Appears grossly normal Affect normal Attitude cooperative Assessment & Plan Assessment & Plan (1) Trigger finger, left middle finger: Code(s): M65.332 - Trigger finger, left middle finger Category: Medical Plan 1. Status post left middle finger trigger release DOS 09/14/2024 Patient appears to be recovering well postoperatively Patient is educated about the typical recovery course At this time, patient is referred for a course of occupational therapy to work on range of motion of the left hand Patient is amenable to this plan Follow-up as needed Orders: Orders OT Evaluation and Treatment Today M65.332 - Trigger finger, left middle finger Coding Level of Care Code Global (98166) Diagnoses Trigger finger, left middle finger M65.332
--- OUTSIDE RECORDS SUMMARY | 2024-09-29 14:46 | XMS_ITS | Encounter Summary ---
Author Organization [facility] Address [address] [place] [address] Phone Care Team Providers Care Remediation Bioanalytics Consultant Name Role Phone Jose Navarrete MD Primary Care Provider [phone] Reason for Visit * Reason Comments Med Refill Encounter Details Date Type Department Care Team (Late st Contact Info) Description 02/14/2023 Refill [facility] [address] [place] [address] Keyshawn Palmer MD Social History [...] on filedocumented in this encounter Care Teams Remediation Bioanalytics Consultant Relationship Specialty Start Date End Date Jose Navarrete MD [address] [place], [place] PCP - General 05/23/20 documented as of this encounter
--- OUTSIDE RECORDS SUMMARY | 2024-09-29 14:46 | XMS_ITS | Clinical Summary ---
Author Organization [facility] Address [address] [place] [address] Phone Care Team Providers Care Locomotive Boilermaker Name Role Phone Jose Navarrete MD Primary Care Provider [phone] Allergies Active Allergy Reactions Criticality Noted Date [...] age to complete this topic Insurance , [address] [address] Medicare Medicaid [place] , [address] [address] Medicare [place] Care Teams Locomotive Boilermaker Relationship Specialty Start Date End Date Jose Navarrete MD [address] [place], [place] PCP - General 05/23/20
--- OUTSIDE RECORDS SUMMARY | 2024-09-29 14:46 | XMS_ITS | Encounter Summary ---
Author Organization [facility] Address [address] [place] [address] Phone Care Team Providers Care Livestock Farm Manager Name Role Phone Jose Navarrete MD Primary Care Provider [phone] Encounter Details Date Type Department Care Team (Late st Contact Info) Description 08/15/2022 Telephone [facility] [address] [place] [address] Connie Fraire Social History Tobacco [...] on filedocumented in this encounter Care Teams Livestock Farm Manager Relationship Specialty Start Date End Date Jose Navarrete MD [address] [place], [place] PCP - General 05/23/20 documented as of this encounter
== END 2024-09-29 14:25 | disposition home or self-care (01) ==
LOC: HO.HOS 13:34
PROVIDERS: PCP Internal Medicine
DX: M65.332 Trigger finger, left middle finger (principal)
CPT/HCPCS: 99024

== ENCOUNTER → 2024-09-29 13:34 | Outpatient (BNVA) | payer MEDICARE, MEDICAID, SELFPAY | PROVIDERS: PCP Internal Medicine | DX: Z09 Encounter for follow-up examination after completed treatment for conditions other than malignant neoplasm (principal); Z87.39 Personal history of other diseases of the musculoskeletal system and connective tissue; Z98.890 Other specified postprocedural states | CPT/HCPCS: 99212 ==

== ENCOUNTER 2024-10-12 11:21 | Outpatient (REF) | payer MEDICARE, MEDICAID, SELFPAY ==
--- OUTSIDE RECORDS SUMMARY | 2024-10-12 12:41 | XMS_ITS | Clinical Summary ---
Author Organization [facility] Address [address] [place] [address] Phone Care Team Providers Care Lap Maker Name Role Phone Jose Navarrete MD Primary Care Provider [phone] Allergies Active Allergy Reactions Criticality Noted Date [...] age to complete this topic Insurance , [address] [address] Medicare Medicaid [place] , [address] [id number] Medicare Medicaid [place] Care Teams Lap Maker Relationship Specialty Start Date End Date Jose Navarrete MD [address] [place], [place] PCP - General 05/23/20
[2024-10-12 12:45] LABS: Anion Gap 12 (12-20); Blood Urea Nitrogen 23 mg/dL (9-16); Calcium 9.7 mg/dL (8.4-10.2); Carbon Dioxide 25 mmol/L (22-29); Chloride 112 mmol/L (96-108); Estimated Glomerular Filt Rate 51; Potassium 4.3 mmol/L (3.3-5.1); Sodium 145 mmol/L (135-145)
[2024-10-12 13:08] LABS: Parathyroid Hormone Intact 125.4 pg/mL (8.7-77.1)
== END 2024-10-12 11:22 | disposition home or self-care (01) ==
LOC: HO.LAB 11:21
PROVIDERS: PCP Internal Medicine; Visit Provider Internal Medicine Nephrology
DX: E21.0 Primary hyperparathyroidism (principal); N18.31 Chronic kidney disease, stage 3a; I12.9 Hypertensive chronic kidney disease with stage 1 through stage 4 chronic kidney disease, or unspecified chronic kidney disease
CPT/HCPCS: 36415; 80051; 82310; 82565; 83970; 84520

== ENCOUNTER 2024-10-14 14:03 | Outpatient (AMB) | payer MEDICARE, MEDICAID, SELFPAY ==
--- OUTSIDE RECORDS SUMMARY | 2024-10-14 14:05 | XMS_ITS | Clinical Summary ---
Author Organization [facility] Address [address] [place] [address] Phone Care Team Providers Care Concrete Batching Plant Operator Name Role Phone Jose Navarrete MD Primary Care Provider [phone] Allergies Active Allergy Reactions Criticality Noted Date [...] age to complete this topic Insurance , [address] [id number] Medicare Medicaid [place] , [address] [id number] Medicare Medicaid [place] Care Teams Concrete Batching Plant Operator Relationship Specialty Start Date End Date Jose Navarrete MD [address] [place], [place] PCP - General 05/23/20
--- NOTE | 2024-10-14 14:16 | HO.NEPHOV ---
Vital Signs 10/14/24 14:19 Height 5 ft 2 in Weight 182 lb 4 oz BMI 33.3 BP 102/60 Blood Pressure Location Rt brachial Position Sitting Pulse 56 Pulse Source Pulse Oximeter Pulse Oximetry (%) 98 Oxygen Delivery Method Room Air Intake Visit Reasons: Hypercalcemia Shipping Lead Person Required: No Accompanied by: Self / Same As Patient Allergies tramadol [TRAMADOL] Allergy (Severe, Verified 10/14/24 14:18) ANAPHYLAXIS ciprofloxacin [From CIPRO] Allergy (Intermediate, Verified 10/14/24 14:18) RENAL FUNCTION ISSUES Sulfa (Sulfonamide Antibiotics) Allergy (Unknown, Verified 10/14/24 14:18) Unknown HPI Comments Details: Krista was seen in follow-up of her hyperparathyroidism and hypertension. Her renal functions had been stable. She denies any syncope, chest pain, shortness of breath, paroxysmal nocturnal dyspnea, orthopnea or orthostatic symptoms. She has no dysuria or hematuria. She is good with her diet and tries to minimize sodium intake. Her renal functions have been stable. [facility] Medical History Arthritis Anxiety Kidney disease Elevated cholesterol Cervical cancer screening Post-menopausal Screening for colon cancer Screening for diabetes mellitus Hypertension Surgical History Hx of bilateral cataract extraction Hx of eye surgery History of colonoscopy History of uterine fibroid H/O bilateral oophorectomy History of blepharoplasty History of removal of cyst Family History Father Hodgkin disease Mother Acute CVA (cerebrovascular accident) Sister Breast cancer Social History Household Members Other:: lives alone-disabled/ elderly community Housing: Apartment Alcohol intake: never Patient Tobacco Use Status: Never used Tobacco Tobacco use type: Cigarette e-Cigarette/Vaping Use: Never Used Second Hand Smoke Exposure: No service: No Current occupational status: disabled Cognitive needs: Yes (cane) Hearing needs: No Vision needs: Yes (Glasses) Review of Systems Const All systems reviewed & are unremarkable except as noted in HPI and below Physical Exam Vital Signs: Last Vital Signs Pulse 56 10/14/24 14:19 BP 102/60 10/14/24 14:19 Pulse Ox 98 10/14/24 14:19 Oxygen Delivery Method Room Air 10/14/24 14:19 BMI result Body Mass Index 33.3 Const General: comfortable and no acute distress Orientation/consciousness: patient oriented x3 HEENT Head: Yes normocephalic Mouth: Normal oral and palatal mucosa present Eyes EOM: EOMs intact bilaterally Neck Neck: Yes supple Resp Auscultation: clear to auscultation bilaterally Cardio Jugular venous distension: no JVD Rate: regular rate GI Palpation (GI): Soft to palpation Auscultation: normal bowel sounds General: Yes no CVA tenderness Back/Spine/Pelvis Back: no CVA tenderness Skin General skin exam: no rashes or lesions noted Neuro General: patient oriented x3 and moves all extremities Extrem General: Yes no pedal edema Results Reviewed Nephrology Results: Sodium 145 mmol/L (135-145) 10/12/24 Potassium 4.3 mmol/L (3.3-5.1) 10/12/24 Chloride 112 mmol/L (96-108) H 10/12/24 Carbon Dioxide 25 mmol/L (22-29) 10/12/24 BUN 23 mg/dL (9-16) H 10/12/24 Creatinine 1.06 mg/dL (0.5-1.4) 10/12/24 Calcium 9.7 mg/dL (8.4-10.2) 10/12/24 PTH Intact 125.4 pg/mL (8.7-77.1) H 10/12/24 Assessment & Plan Assessment & Plan (1) Primary hyperparathyroidism: Code(s): E21.0 - Primary hyperparathyroidism Category: Medical (2) CKD (chronic kidney disease) stage 3, GFR 30-59 ml/min: Code(s): N18.30 - Chronic kidney disease, stage 3 unspecified Category: Medical Qualifiers: Chronic kidney disease stage 3 subtype: stage 3a (GFR 45-59) Qualified Code(s): N18.31 - Chronic kidney disease, stage 3a (3) Hypertension: Code(s): I10 - Essential (primary) hypertension Category: Medical Qualifiers: Hypertension type: primary hypertension Qualified Code(s): I10 - Essential (primary) hypertension Plan Krista's renal functions had been stable. She needs to lose some weight. She should maintain low-sodium diet. I will consider introducing low-dose JUAN M inhibitor with time. She tries to avoid nonsteroidal anti-inflammatories and maintains good hydration. I have asked her to hold her Calcium and vitamin D for now. Her Sestamibi scan was negative. She may need Cinacalcet. I asked her to increase hydration. I did not make any other changes today. Answered all questions Orders: Orders Parathyroid Hormone Intact 6 Months E21.0 - Primary hyperparathyroidism, I10 - Essential (primary) hypertension, N18.31 - Chronic kidney disease, stage 3a Vitamin D 25-OH Total 6 Months E21.0 - Primary hyperparathyroidism, I10 - Essential (primary) hypertension, N18.31 - Chronic kidney disease, stage 3a Electrolytes 6 Months E21.0 - Primary hyperparathyroidism, I10 - Essential (primary) hypertension, N18.31 - Chronic kidney disease, stage 3a Creatinine 6 Months E21.0 - Primary hyperparathyroidism, I10 - Essential (primary) hypertension, N18.31 - Chronic kidney disease, stage 3a Phosphorus 6 Months E21.0 - Primary hyperparathyroidism, I10 - Essential (primary) hypertension, N18.31 - Chronic kidney disease, stage 3a Calcium 6 Months E21.0 - Primary hyperparathyroidism, I10 - Essential (primary) hypertension, N18.31 - Chronic kidney disease, stage 3a Blood Urea Nitrogen 6 Months E21.0 - Primary hyperparathyroidism, I10 - Essential (primary) hypertension, N18.31 - Chronic kidney disease, stage 3a Protein Creatinine Ratio, Ur 6 Months E21.0 - Primary hyperparathyroidism, I10 - Essential (primary) hypertension, N18.31 - Chronic kidney disease, stage 3a Coding Level of Care Code Est Pt Level 4 (90172) Diagnoses Primary hyperparathyroidism E21.0 Stage 3a chronic kidney disease N18.31 Chronic kidney disease stage 3 subtype: stage 3a (GFR 45-59) Primary hypertension I10 Hypertension type: primary hypertension
[2024-10-14 14:19] VITALS: BP 102/60; PULSE 56; O2SAT 98; BMI 33.3
== END 2024-10-14 14:36 | disposition home or self-care (01) ==
LOC: HO.HKA 14:04
PROVIDERS: PCP Internal Medicine; Visit Provider Internal Medicine Nephrology
DX: E21.0 Primary hyperparathyroidism (principal); N18.31 Chronic kidney disease, stage 3a; I10 Essential (primary) hypertension
CPT/HCPCS: 99214

== ENCOUNTER → 2024-10-14 14:03 | Outpatient (BNVA) | payer MEDICARE, OTHER, SELFPAY | PROVIDERS: PCP Internal Medicine; Visit Provider Internal Medicine Nephrology | DX: I12.9 Hypertensive chronic kidney disease with stage 1 through stage 4 chronic kidney disease, or unspecified chronic kidney disease (principal); N18.31 Chronic kidney disease, stage 3a; E21.0 Primary hyperparathyroidism | CPT/HCPCS: 99212 ==

== ENCOUNTER 2024-11-06 14:07 | Outpatient (AMB) | payer MEDICARE, MEDICAID, SELFPAY ==
--- NOTE | 2024-11-06 14:11 | MHC.PC.OV ---
Vital Signs 11/06/24 14:12 11/06/24 15:48 Height 5 ft 2 in Weight 182 lb 12.211 oz BMI 33.4 BP 120/80 Blood Pressure Location Lt brachial Position Sitting Pulse 40 L 55 Pulse Source Pulse Oximeter Pulse Oximeter Temp 96.9 F Temp Source Temporal Artery Scan Pulse Oximetry (%) 98 Oxygen Delivery Method Room Air Intake Visit Reasons: Transfer Care from Dr. Navarrete 3mth f/u Intake Note: Patient is here today for JOVANNI from Dr Navarrete Alarm Signal Operator Required: No Marketing Technology Coordinator: Not Required per policy Accompanied by: Self / Same As Patient Allergies tramadol (TRAMADOL) Allergy (Severe, Verified 11/06/24 15:02) ANAPHYLAXIS ciprofloxacin (From CIPRO) Allergy (Intermediate, Verified 11/06/24 15:02) RENAL FUNCTION ISSUES Sulfa (Sulfonamide Antibiotics) Allergy (Unknown, Verified 11/06/24 15:02) Unknown Medication List - Last Reconciled 11/06/24 by Leticia Vega PA-C acetaminophen 1,000 mg (2 x 500 mg) PO Q6H PRN amlodipine 10 mg PO DAILY aspirin (Adult Low Dose Aspirin) 81 mg PO DAILY fluoxetine 20 mg PO DAILY furosemide 40 mg PO DAILY metoprolol succinate ER 50 mg PO DAILY multivitamin 1 tab PO QAM pravastatin 40 mg PO DAILY Tobacco use date assessed: 11/06/24 Fall risk assessment: No Falls in past year Last assessed Fall Risk: 11/06/24 Dental Screening Dental Screen Date: 07/03/24 HPI Transfer Care from Dr. Navarrete 3mth f/u HPI Details 74 year old female with past medical history of depression, chronic kidney disease, hypertension, hyperlipidemia, legally blind, diverticulosis, hyperparathyroidism last seen by Dr. Navarrete 06/2024 coming in for JOVANNI. In review of the notes, patient was seen by Nephrology 10/2024 renal function has been stable advised to maintain on low-sodium diet and introduced low-dose JUAN M inhibitor with time. Blood work is ordered advised follow up in 6 months. She has been following with orthopedics for management of trigger finger in surgery completed 08/2024. Presenting for management of chronic conditions including hypertension, hyperlipidemia, anxiety, and depression, as well as preventative care and hearing concerns. The patient's hypertension is well-managed with medication, though she is uncertain about the prescribing physician for metoprolol. She is actively trying to lower her cholesterol through dietary changes, with plans for a follow-up cholesterol test. Fluoxetine has effectively managed her symptoms, which were exacerbated by traumatic family events. [facility] Medical History Arthritis Anxiety Kidney disease Elevated cholesterol Cervical cancer screening Post-menopausal Screening for colon cancer Screening for diabetes mellitus Hypertension Surgical History History of hand surgery Hx of bilateral cataract extraction Hx of eye surgery History of colonoscopy History of uterine fibroid H/O bilateral oophorectomy History of blepharoplasty History of removal of cyst Family History Father Hodgkin disease Mother Acute CVA (cerebrovascular accident) Sister Breast cancer Social History Household Members Other:: lives alone-disabled/ elderly community Housing: Apartment Alcohol intake: never Patient Tobacco Use Status: Never used Tobacco Tobacco use type: Cigarette e-Cigarette/Vaping Use: Never Used Second Hand Smoke Exposure: No service: No Current occupational status: disabled Cognitive needs: Yes (cane) Hearing needs: No Vision needs: Yes (Glasses) Questionnaire Thrive Questionnaire Date Thrive assessed: 07/03/24 SAGAR-7 AMB Questionnaire SAGAR-7 Date SAGAR - 7 assessed: 07/03/24 Source: Developed by Drs. North Cazares, Ann Mccall, Vladimir Malone and colleagues, with an educational hernandez from [employer] ?. Review of Systems Const Denies body aches, Denies chills, Denies fever(s), Denies headache(s) and Denies poor appetite Eyes Reports no additional complaints ENT Denies dysphagia, Denies dizziness, Denies headache(s) and Denies odynophagia Card Denies chest pain, Denies syncope, Denies edema, Denies irregular heart rhythm, Denies lightheadedness and Denies dyspnea Resp Denies cough and Denies dyspnea GI Denies abdominal pain, Denies constipation, Denies dysphagia, Denies diarrhea, Denies nausea, Denies odynophagia and Denies vomiting Reports no additional complaints Musc Reports no additional complaints and Denies abnormal gait Skin/Breast Reports system reviewed and no additional complaints, except as documented Neuro Denies abnormal gait, Denies dizziness, Denies syncope and Denies headache(s) Psych Reports no additional complaints Physical exam (Primary Care) Vital Signs: Last Vital Signs Temp 96.9 F 11/06/24 14:12 Pulse 40 L 11/06/24 14:12 BP 120/80 11/06/24 14:12 Pulse Ox 98 11/06/24 14:12 Oxygen Delivery Method Room Air 11/06/24 14:12 BMI result Body Mass Index 33.4 Tobacco/Smoking Status: Tobacco use Status Tobacco use date assessed 11/06/24 11/06/24 14:20 Patient Tobacco Use Status Never used Tobacco 11/06/24 14:20 Tobacco use type Cigarette 11/06/24 14:20 e-Cigarette/Vaping Use Never Used 11/06/24 14:20 Thrive Assessment: Date of Thrive Assessment Date Thrive assessed 07/03/24 11/06/24 14:20 Const General: cooperative, healthy appearing, comfortable and no acute distress Orientation/consciousness: patient oriented x3 HENMT Head: Yes normocephalic Ears: hearing grossly normal bilaterally and Abnormal EAC present cerumen impaction bilateral General nose exam: Normal external nose present Eyes General: appearance normal, both eyes and all related structures Conjunctivae: conjunctivae normal Neck Neck: Yes full ROM and Yes no lymphadenopathy Resp Effort & Inspection: normal respiratory effort Auscultation: clear to auscultation bilaterally, no crackles, no rales, no rhonchi and no wheezes Cardio Rate: regular rate Rhythm: regular rhythm Skin General skin exam: no rashes or lesions noted Neuro General: patient oriented x3 Gait exam (Neuro): Normal gait present Extrem General: Yes normal to inspection, Yes full ROM and No edema Psych Affect: normal affect Attitude: cooperative Insight: Good insight present (Psych) Judgement: Good judgement present (Psych) Coding Level of Care Code Est Pt Level 4 (89196) Diagnoses Primary hypertension I10 Hypertension type: primary hypertension Pure hypercholesterolemia E78.00 Hyperlipidemia type: pure hypercholesterolemia Major depressive disorder in full remission, unspecified whether recurrent F32.5 Depression Type: major depressive disorder Major depression recurrence: unspecified whether recurrent Active/Remission status: in full remission Primary hyperparathyroidism E21.0 BMI 32.0-32.9,adult Z68.32 Stage 3a chronic kidney disease N18.31 Chronic kidney disease stage 3 subtype: stage 3a (GFR 45-59) Sinus bradycardia R00.1 Cerumen impaction H61.20 Assessment & Plan Assessment & Plan (1) Hypertension: Code(s): I10 - Essential (primary) hypertension Category: Medical Qualifiers: Hypertension type: primary hypertension Qualified Code(s): I10 - Essential (primary) hypertension Plan: Continue on current blood pressure medication. Avoid salt intake and encourage healthy diet and regular exercise. (2) Hyperlipidemia: Code(s): E78.5 - Hyperlipidemia, unspecified Category: Medical Qualifiers: Hyperlipidemia type: pure hypercholesterolemia Qualified Code(s): E78.00 - Pure hypercholesterolemia, unspecified Plan: Avoid foods that are high in cholesterol such as red meat, fried foods, eggs and baked goods. Triglyceride goal of less than 150 and LDL goal of less than 130. Continue on Pravastatin (3) Depression: Code(s): F32.A - Depression, unspecified Category: Medical Qualifiers: Depression Type: major depressive disorder Major depression recurrence: unspecified whether recurrent Active/Remission status: in full remission Qualified Code(s): F32.5 - Major depressive disorder, single episode, in full remission Plan: She is currently on the Fluoxetine and feels good on this medication. (4) Primary hyperparathyroidism: Code(s): E21.0 - Primary hyperparathyroidism Category: Medical Plan: Currently following with Dr. Senior and last blood work WNL. (5) BMI 32.0-32.9,adult: Code(s): Z68.32 - Body mass index [BMI] 32.0-32.9, adult Category: Medical Plan: Healthy diet and regular exercise is encouraged. (6) CKD (chronic kidney disease) stage 3, GFR 30-59 ml/min: Code(s): N18.30 - Chronic kidney disease, stage 3 unspecified Category: Medical Qualifiers: Chronic kidney disease stage 3 subtype: stage 3a (GFR 45-59) Qualified Code(s): N18.31 - Chronic kidney disease, stage 3a Plan: Patient following with Dr. Seinor. Advised to stay well hydrated, reduce salt intake, and avoid kidney irritants. (7) Sinus bradycardia: Comment: Stable and she is asymptomatic. Code(s): R00.1 - Bradycardia, unspecified Category: Medical Plan: She is currently on Metoprolol 50mg which could be contributing to her bradycardia. Per her last cardiology note she did decrease the dose of metoprolol as the patient was having SOB with long walks. She is no longer having SOB and is asymptomatic at this time. Plan to continue to follow with cardiology at this time. (8) Cerumen impaction: Code(s): H61.20 - Impacted cerumen, unspecified ear Category: Medical Plan: Plan for ear cleaning in the office. Plan The patient will maintain her current antihypertensive treatment, with clarification on the prescribing physician for metoprolol. She is advised to continue dietary changes to manage hyperlipidemia, with a repeat cholesterol test scheduled. Her fluoxetine regimen will remain unchanged due to its effectiveness. A referral to an ENT specialist is arranged for cerumen removal, and she is instructed to use Debrox to soften the wax. Physical therapy for Dupuytren's contracture will continue to enhance hand mobility. For her upcoming trip, she should wear compression socks and adjust her diet to prevent leg swelling. This note was constructed using voice recognition software. While every effort has been made to ensure accuracy and buttonhole machine operator, still areas may have been included sometimes these areas may affect the content or meeting of the given symptoms. Total time spent caring for the patient today was 30 minutes. This includes time spent before the visit reviewing the chart, time spent during the visit, and time spent after the visit and documentation. Patient was informed and verbally consented to the use of an ambient scribe for clinic note documentation during this visit. Orders: Orders Lipid Panel Today E78.00 - Pure hypercholesterolemia, unspecified Vitamin B12 and Folate Today Z13.21 - Encounter for screening for nutritional disorder TSH reflex Free T4 Today Z00.00 - Encounter for general adult medical examination without abnormal findings Complete Blood Count Auto Diff Today E83.52 - Hypercalcemia, Z00.00 - Encounter for general adult medical examination without abnormal findings MM tomosynthesis screening BI Today Z12.31 - Encounter for screening mammogram for malignant neoplasm of breast Vitamin D 25-OH Total Today Z00.00 - Encounter for general adult medical examination without abnormal findings Comprehensive Met. Panel Today E83.52 - Hypercalcemia, Z00.00 - Encounter for general adult medical examination without abnormal findings Referrals Ear/Nose/Throat Referral H61.20 - Impacted cerumen, unspecified ear Medications: New carbamide peroxide 6.5% (Debrox) 5 drps otic (ears) DAILY 15 mL 0RF 4 days
[2024-11-06 14:12] VITALS: BP 120/80; PULSE 40; TEMP 36.1; O2SAT 98; BMI 33.4
--- OUTSIDE RECORDS SUMMARY | 2024-11-06 14:37 | XMS_ITS | Encounter Summary ---
Author Organization [facility] Address [address] [address] Phone Care Team Providers Care Arc Furnace Operator Name Role Phone Jose Navarrete MD Primary Care Provider [phone] Encounter Details Date Type Department Care Team (Late st Contact Info) Description 11/04/2024 Orders Only [facility]. [address] [address] Jerri Motatatianna [address] [facility] [address] [place] [address] Social History Tobacco Use Types Packs/Day Years [...] on filedocumented in this encounter Care Teams Arc Furnace Operator Relationship Specialty Start Date End Date Jose Navarrete MD [address] [place], [place] PCP - General 05/23/20 documented as of this encounter
[2024-11-06 15:48] VITALS: PULSE 55
== END 2024-11-06 15:33 | disposition home or self-care (01) ==
LOC: HO.HMCH 14:08
DX: I10 Essential (primary) hypertension (principal); E78.00 Pure hypercholesterolemia, unspecified; F32.5 Major depressive disorder, single episode, in full remission; E21.0 Primary hyperparathyroidism; Z68.32 Body mass index [BMI] 32.0-32.9, adult; N18.31 Chronic kidney disease, stage 3a; R00.1 Bradycardia, unspecified; H61.20 Impacted cerumen, unspecified ear

== ENCOUNTER → 2024-11-06 14:07 | Outpatient (BNVA) | payer MEDICARE, MEDICAID, SELFPAY | PROVIDERS: PCP Internal Medicine | DX: I12.9 Hypertensive chronic kidney disease with stage 1 through stage 4 chronic kidney disease, or unspecified chronic kidney disease (principal); N18.31 Chronic kidney disease, stage 3a; E78.00 Pure hypercholesterolemia, unspecified; F32.5 Major depressive disorder, single episode, in full remission; E21.0 Primary hyperparathyroidism; H61.20 Impacted cerumen, unspecified ear | CPT/HCPCS: 99212 ==

== ENCOUNTER 2024-11-11 13:30 | Outpatient (RCR) | payer MEDICARE, MEDICAID, SELFPAY ==
--- NOTE | 2024-10-21 14:53 | MHC.OT.EP ---
[address] [phone] Occupational Therapy Plan of Care Patient Name: Krista Katz Date of Evaluation: 10/21/24 Diagnosis: S/P TRIGGER FINGER RELEASE Pain Location: L MF Pain Score: 0-5/10 Pain Scale Used: Numeric (0 - 10) Aggravating Factors: LIFT HEAVY ITEMS, END RANGE EXTENSION Alleviating Factors: RESTING, WAS PREVIOUSLY USING ICE Assessment: MS KATZ IS F[age] WEEKS S/P L MF TRIGGER FINGER RELEASE WITH DR VIZCAINO. SHE REPORTS LOW TO MODERATE PAIN IN L MF, SOME HYPERSENSITIVITY AT SCAR AND DIFFICULTIES ACHIEVING FULL EXTENSION OF MF TO LAY HAND FLAT ON TABLE. SHE WOULD BENEFIT FROM ONGOING SKILLED OT TO ADDRESS ROM, STRENGTH, HYPERSENSITIVITY AND SCAR MOBILIZATION. Frequency and Duration: The patient will be seen 2X/WEEK FOR 3 WEEKS Short Term Goals: SEE BELOW Career Services Director Goals: IND HEP IND SCAR MOBILIZATION STRATEGIES TOLERATE 8 MINS OF VIBRATION, ROUGH TEXTURES TO L PALM DEMO ABILITY TO LAY L HAND FLAT TO PUSH UP FROM CHAIR Treatment Plan: Therapeutic Exercise Therapeutic Activity Home Exercise Program Splinting Neuro Re-ed Patient Education Desensitization/Sensory Re-ed Edema Control ADL Training Ultrasound NMES Iontophoresis Paraffin Fluidotherapy MHP Cold Packs Joint Mobilization Soft Tissue Mobilization Kinesiotaping Other (see comments) Electronically Signed By: CASSIDY JOHNSON OTR/L Please Sign and return to therapist. Thank you once again for your referral.
--- NOTE | 2024-11-16 13:26 | MHC.OT.DC ---
[address] [phone] F: [phone] Occupational Therapy Discharge Note Patient Name: Krista Katz Provider: Abisai Enciso Diagnosis: S/P TRIGGER FINGER RELEASE Date of Surgery: 09/14/24 Date of Evaluation: 10/21/24 Date of Discharge: 11/11/24 Treatments to Date: 4 Cancellations to Date: 3 No Shows to Date: 0 Discharge Status: Achieved Goals Improved Function Independent with HEP Discharge Summary: MS KATZ HAS PROGRESSED WELL WITH HER OT RX SESSIONS. SHE DEMO GOOD FUNCTIONAL USE OF NON DOMINANT L HAND DURING ADLs AND IADLs. COMPLAINT WITH SCAR MOBILIZATION AND DESENSITIZATION STRATEGIES. IMPROVEMENTS IN SISAL PICKER STRENGTH AND PIPj EXTENSION NOTED. READY TO TRANSITION TO A HOME BASED PROGRAM. Electronically Signed By: VIOLETTE PICKETT/Jie Reviewed/agree with student documentation: N/A Therapist: Please Sign and return to therapist, thank you for your referral.
== END 2024-11-16 13:25 | disposition home or self-care (01) ==
LOC: HO.OT 13:30
PROVIDERS: PCP Internal Medicine
DX: M65.332 Trigger finger, left middle finger (principal); M25.642 Stiffness of left hand, not elsewhere classified; Z98.890 Other specified postprocedural states
CPT/HCPCS: 97110; 97140; 97165

== ENCOUNTER 2024-11-24 14:05 | Outpatient (REF) | payer MEDICARE, MEDICAID, SELFPAY ==
--- OUTSIDE RECORDS SUMMARY | 2024-11-24 15:24 | XMS_ITS | Encounter Summary ---
Author Organization [facility] Address [address] [address] Phone Care Team Providers Care Hall Supervisor Name Role Phone Jose Navarrete MD Primary Care Provider [phone] Encounter Details Date Type Department Care Team (Late st Contact Info) Description 11/04/2024 Orders Only [facility]. [address] [phone] Jerri Motatatianna [address] [facility] [address] [place] [address] Social History Tobacco Use Types [...] on filedocumented in this encounter Care Teams Hall Supervisor Relationship Specialty Start Date End Date Jose Navarrete MD [address] [place], [place] PCP - General 05/23/20 documented as of this encounter
[2024-11-24 15:26] LABS: Resp Syncy Virus RNA Qual PCR NEGATIVE (Negative); SARS COV2 PCR INHOUSE NEGATIVE (Negative)
== END 2024-11-24 14:06 | disposition home or self-care (01) ==
LOC: HO.LAB 14:05
DX: R09.89 Other specified symptoms and signs involving the circulatory and respiratory systems (principal); Z03.818 Encounter for observation for suspected exposure to other biological agents ruled out
CPT/HCPCS: 87637

== ENCOUNTER 2024-12-28 10:05 | Outpatient (AMB) | payer MEDICARE, MEDICAID, SELFPAY ==
[2024-12-28 10:08] VITALS: BP 150/62; PULSE 40; BMI 32.5
--- NOTE | 2024-12-28 10:08 | MHC.OFFVIS ---
Vital Signs 12/28/24 10:08 Height 5 ft 2 in Weight 177 lb 14.609 oz BMI 32.5 BP 150/62 H Blood Pressure Location Lt brachial Position Sitting Pulse 40 L Pulse Source Monitor Intake Visit Reasons: Follow up r/s 12-07-24 Petroleum Supply Specialist Required: No Allergies tramadol (TRAMADOL) Allergy (Severe, Verified 12/28/24 10:12) ANAPHYLAXIS ciprofloxacin (From CIPRO) Allergy (Intermediate, Verified 12/28/24 10:12) RENAL FUNCTION ISSUES Sulfa (Sulfonamide Antibiotics) Allergy (Unknown, Verified 12/28/24 10:12) Unknown Medication List - Last Reconciled 12/28/24 by Monika Loco, POST FRAMER-C acetaminophen 1,000 mg (2 x 500 mg) PO Q6H PRN amlodipine 10 mg PO DAILY aspirin (Adult Low Dose Aspirin) 81 mg PO DAILY carbamide peroxide 6.5% (Debrox) 5 drps otic (ears) DAILY 4 days fluoxetine 20 mg PO DAILY furosemide 40 mg PO DAILY metoprolol succinate ER 50 mg PO DAILY multivitamin 1 tab PO QAM pravastatin 40 mg PO DAILY HPI HPI Follow up r/s 12-07-24: Details: Krista is a 73-year-old female past medical history of obesity, hypertension, diabetes, hyperlipidemia, chronic kidney disease, sinus bradycardia who presents for follow-up. Today she reports that she has been feeling well with no concerning symptoms. No chest discomfort at rest or with activity. No shortness of breath, PND, orthopnea or edema. No presyncope, syncope, falls. Taking all meds as directed. Uses a pill pack from the pharmacy. Good activity tolerance. Visually impaired. Going to [place] and on a cruise in January. [facility] Medical History Arthritis Anxiety Kidney disease Elevated cholesterol Cervical cancer screening Post-menopausal Screening for colon cancer Screening for diabetes mellitus Hypertension Surgical History History of hand surgery Hx of bilateral cataract extraction Hx of eye surgery History of colonoscopy History of uterine fibroid H/O bilateral oophorectomy History of blepharoplasty History of removal of cyst Family History Father Hodgkin disease Mother Acute CVA (cerebrovascular accident) Sister Breast cancer Social History Household Members Other:: lives alone-disabled/ elderly community Housing: Apartment Alcohol intake: never Patient Tobacco Use Status: Never used Tobacco Tobacco use type: Cigarette e-Cigarette/Vaping Use: Never Used Second Hand Smoke Exposure: No service: No Current occupational status: disabled Cognitive needs: Yes (cane) Hearing needs: No Vision needs: Yes (Glasses) Review of Systems Const Details: visually impaired All systems reviewed & are unremarkable except as noted in HPI and below ENT Denies dizziness Card Denies chest pain, Denies chest pain at rest, Denies chest pain with activity, Denies rapid heart rate, Denies pedal edema, Denies edema, Denies leg edema, Denies lightheadedness, Denies palpitations, Denies dyspnea, Denies dyspnea on exertion and Denies orthopnea Resp Denies cough, Denies dyspnea and Denies dyspnea on exertion GI Denies hematochezia and Denies change in stool character Musc Denies abnormal gait, Denies limited range of motion, Denies muscle cramps, Denies muscle weakness, Denies numbness, Denies radiating pain into limb, Denies stiffness and Denies tingling Neuro Denies abnormal gait, Denies dizziness, Denies numbness and Denies tingling Endo Denies palpitations Physical Exam Vital Signs: Last Vital Signs Pulse 40 L 12/28/24 10:08 BP 150/62 H 12/28/24 10:08 BMI result Body Mass Index 32.5 Const General: cooperative, healthy appearing, comfortable and no acute distress Orientation/consciousness: patient oriented x3 HEENT Other: visually impaired Neck Neck: Yes normal visual inspection Resp Effort & Inspection: normal respiratory effort Auscultation: clear to auscultation bilaterally, no crackles, no rales, no rhonchi and no wheezes Cardio Jugular venous distension: no JVD Rate: regular rate Rhythm: regular rhythm Heart sounds: S1 normal heart sound present, S2 normal heart sound present, no murmurs and no rubs Neuro General: patient oriented x3 Extrem General: Yes normal to inspection, No no pedal edema and No calf tenderness Psych Appearance: grossly normal Mental Status: mental status grossly normal Speech and movement: Normal speech and movement present Office Procedures EKG Details: Today, read by me, marked Sinus Bradycardia, cant exclude prior anterior infarct, rate 40, Qtc 409ms [id number], Complete Assessment & Plan Assessment & Plan (1) Sinus bradycardia: Comment: Stable and she is asymptomatic. Code(s): R00.1 - Bradycardia, unspecified Category: Medical Plan: History of sinus bradycardia, asymptomatic. In looking back at heart rates over the last 3 years it seems her heart rate typically runs 40s to 50s. She has been on metoprolol XL 50 mg daily as part of blood pressure control. EKG done today showing sinus bradycardia, rate 40. 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 Will check Holter monitor. Symptoms of symptomatic bradycardia reviewed with her. Cardiology follow-up 6 months, sooner if needed. (2) Hypertension: Code(s): I10 - Essential (primary) hypertension Category: Medical Qualifiers: Hypertension type: primary hypertension Qualified Code(s): I10 - Essential (primary) hypertension Plan: Blood pressure goal less than 130/80. Elevated today, initially 150/62, recheck done by me 138/60. Med changes as above. (3) Hyperlipidemia: Code(s): E78.5 - Hyperlipidemia, unspecified Category: Medical Qualifiers: Hyperlipidemia type: pure hypercholesterolemia Qualified Code(s): E78.00 - Pure hypercholesterolemia, unspecified Plan: [place] LDL goal less than 70 in patient with diabetes. Labs done today show LDL 193. She is currently on low-dose pravastatin, which I will change to atorvastatin. Recommend recheck of fasting lipids in 6-8 weeks. (4) Hypertension: Code(s): I10 - Essential (primary) hypertension Category: Medical Qualifiers: Hypertension type: primary hypertension Qualified Code(s): I10 - Essential (primary) hypertension Plan I discussed with the patient the need to reduce her metoprolol dosage due to bradycardia and the potential introduction of an JUAN M inhibitor to manage her hypertension. We talked about using a heart monitor to ensure her heart rate remains stable after medication adjustments. We also planned for a kidney function test after starting the new medication and ensured all adjustments would be made before her cruise. Orders: Orders Lipid Panel 2 Months E78.00 - Pure hypercholesterolemia, unspecified Basic Metabolic Panel Today I10 - Essential (primary) hypertension ECG 3 day holter monitor 01/08/25 R00.1 - Bradycardia, unspecified Medications: New atorvastatin (Lipitor) change to bedtime stop pravastatin 40 mg PO BEDTIME 90 tabs 1RF metoprolol tartrate dose reduce and changed to BID Adjust pill pack 12.5 mg (1/2 x 25 mg) PO BID 180 tabs 1RF Discontinued metoprolol succinate ER Discontinued Reason: Doctor's Order 50 mg PO DAILY 90 tabs 2RF pravastatin Discontinued Reason: Doctor's Order 40 mg PO DAILY 90 tabs 0RF Patient Instructions: - Reduce metoprolol dosage as directed. - Use heart monitor as instructed to track heart rate. - Wear compression stockings during travel to manage swelling. - Follow dietary recommendations to reduce salt intake. - Complete kidney function test 5-7 days after starting new medication. - Contact the office if experiencing any unusual symptoms or concerns. Patient was informed and verbally consented to the use of an ambient scribe for clinic note documentation during this visit. Visit time spent on chart review, interview, assessment, orders, documentation. Coding Level of Care Code Est Pt Level 4 (41478) Complex EM visit Add On G2211 Diagnoses Sinus bradycardia R00.1 Primary hypertension I10 Hypertension type: primary hypertension Pure hypercholesterolemia E78.00 Hyperlipidemia type: pure hypercholesterolemia CPT Codes EKG - CPT: 76404-[id number], Complete ([id number]) Time Spent (min) 28
--- OUTSIDE RECORDS SUMMARY | 2024-12-28 10:59 | XMS_ITS | Clinical Summary ---
Author Organization [facility] Address [address] [place] [address] Phone Care Team Providers Care Ash Worker Name Role Phone Jose Navarrete MD Primary Care Provider [phone] Allergies Active Allergy Reactions Criticality Noted Date [...] the evening. 180 tablet 3 07/06/2023 Active metoprolol succinate XL (TOPROL-XL) 100 MG 24 hr tablet Take 1 tablet (100 mg total) by mouth 1 (one) time each day for 28 days 28 tablet 2 11/27/2024 Active Active Problems Problem Noted Date Diagnosed Date Hypertension 02/08/2021 Acute nontraumatic kidney injury 08/10/2020 Stage 3a chronic kidney disease 08/10/2020 Hypertensive chronic kidney disease, unspecified, with chronic kidney disease stage I through stage IV, or unspecified 08/10/2020 Encounters Date Type Department Care Team Description 12/09/2024 Refill [facility] [address] [facility] [address] [place] [address] Denisse Kimball [place] 11/04/2024 Orders Only [facility] [address] [address] Henri Mota from Last 3 Months Family History Medical History Relation Comments Cancer [...] Cancer Screening: Sigmoidoscopy 2000 Influenza Vaccine (#1) 2025 Hepatitis B Vaccine Aged Out No longe r eligible based on patient's age to complete this topic Insurance Medicare Medicaid [place] Medicare Medicaid [place] Care Teams Ash Worker Relationship Specialty Start Date End Date Jose Navarrete MD [address] [place] PCP - General 05/23/20
== END 2024-12-28 10:54 | disposition home or self-care (01) ==
LOC: HO.HCS 10:05
PROVIDERS: Visit Provider Nurse Practitioner Family
DX: R00.1 Bradycardia, unspecified (principal); I10 Essential (primary) hypertension; E78.00 Pure hypercholesterolemia, unspecified
CPT/HCPCS: 93010; 99214; G2211

== ENCOUNTER 2024-12-28 10:05 | Outpatient (REF) | payer MEDICARE, MEDICAID, SELFPAY ==
[2024-12-28 11:07] LABS: MANUAL DIFF FLAG NO
[2024-12-28 11:45] LABS: Hematocrit 42.8 % (37.0-47.0); Hemoglobin 14.2 g/dl (12.0-16.0); Imm Gran Abs Auto 0.03 X10*3/uL (0.00-0.03); Imm Gran Pct Auto 0.4 % (0.0-0.4); Lymphocytes Absolute Auto 3.0 X10*3/uL (1.2-4.9); Mean Corpuscular HGB Conc 33.2 g/dl (31.0-35.0); Mean Corpuscular Hemoglobin 28.7 pg (27.0-33.0); Mean Corpuscular Volume 86.5 fL (80.0-98.0); NRBC Abs Auto 0.000 X10*3/uL (0.0-0.012); NRBC Pct Auto 0.0 /100WBC (0.0-0.2); Platelet Count 286 X10*3/uL (160-400); Red Blood Count 4.95 X10*6/uL (4.20-5.50); White Blood Count 7.6 X10*3/uL (4.8-10.8)
[2024-12-28 12:23] LABS: Alanine Aminotransferase 21 U/L (0-31); Albumin Level 4.6 g/dL (3.5-5.0); Alkaline Phosphatase 146 U/L (39-117); Anion Gap 13 (12-20); Aspartate Amino Transferase 23 U/L (5-31); Blood Urea Nitrogen 23 mg/dL (9-16); Calcium 9.7 mg/dL (8.4-10.2); Carbon Dioxide 26 mmol/L (22-29); Chloride 108 mmol/L (96-108); Cholesterol 274 mg/dL (<200); Estimated Glomerular Filt Rate 46; HDL Cholesterol 32 mg/dL (>40); Potassium 4.2 mmol/L (3.3-5.1); Sodium 143 mmol/L (135-145); Total Protein 7.6 g/dL (6.5-8.0); Triglycerides 246 mg/dL (<150)
[2024-12-28 12:49] LABS: Folate 6.8 ng/mL (> or = 4.0); Vitamin B12 422 pg/mL (200-900)
== END 2024-12-28 10:06 | disposition home or self-care (01) ==
LOC: HO.LAB 10:05
PROVIDERS: Internal Medicine Nephrology; Visit Provider Nurse Practitioner Family
DX: I12.9 Hypertensive chronic kidney disease with stage 1 through stage 4 chronic kidney disease, or unspecified chronic kidney disease (principal); E11.22 Type 2 diabetes mellitus with diabetic chronic kidney disease; N18.9 Chronic kidney disease, unspecified; E78.00 Pure hypercholesterolemia, unspecified; R00.1 Bradycardia, unspecified; E83.52 Hypercalcemia; Z00.00 Encounter for general adult medical examination without abnormal findings; Z13.21 Encounter for screening for nutritional disorder; Z79.899 Other long term (current) drug therapy
CPT/HCPCS: 36415; 80053; 80061; 82306; 82607; 82746; 84443; 85025; 93005; 99212

== ENCOUNTER 2024-12-30 12:58 | Outpatient (REF) | payer MEDICARE, MEDICAID, SELFPAY ==
--- NOTE | ~2024-12-30 | MM_ITS ---
EXAMINATION: MM SCREENING DIGITAL BREAST TOMOSYNTHESIS, BILATERAL CLINICAL INFORMATION: Screening. Asymptomatic. COMPARISON: Mammography: Comparison is made with available priors TECHNIQUE: Digital breast mammography with tomosynthesis is performed in both the craniocaudal and mediolateral oblique views along with computer-aided detection (CAD). FINDINGS: There are scattered areas of fibroglandular density (ACR BI-RADS breast composition Category b). There are no significant masses, abnormal calcifications, or other abnormalities. MM/MM tomosynthesis screening BI IMPRESSION: No mammographic evidence of malignancy. ASSESSMENT: BI-RADS BI-RADS 1 - Negative RECOMMENDATION: Routine annual mammography screening. 1 year F/U This examination should not preclude the clinical evaluation of a suspicious palpable abnormality. This patient's information was entered into a reminder system with a target due date for their next mammogram. Electronically signed by: Elena Ackerman DO 12/31/2024 05:03 PM EDT
--- OUTSIDE RECORDS SUMMARY | 2024-12-30 13:50 | XMS_ITS | Clinical Summary ---
Author Organization [facility] Address [address] [place] [address] Phone Care Team Providers Care Agricultural Produce Washer Name Role Phone Jose Navarrete MD Primary Care Provider [phone] Allergies Active Allergy Reactions Criticality Noted Date [...] 12/09/2024 Refill [facility] [address] [facility] [address] [place] [address] Denisse Kimball [place] 11/04/2024 Orders Only [facility] [address] [address] Henri Mota from Last 3 [...] Medicaid [place] Medicare [place] Care Teams Agricultural Produce Washer Relationship Specialty Start Date End Date Jose Navarrete MD [address] [place] PCP - General 05/23/20
== END 2024-12-30 12:59 | disposition home or self-care (01) ==
LOC: HO.MAMMO 12:58
DX: Z12.31 Encounter for screening mammogram for malignant neoplasm of breast (principal)
CPT/HCPCS: 77063; 77067

== ENCOUNTER → 2024-12-30 13:45 | Outpatient (BNV) | payer MEDICARE, MEDICAID, SELFPAY | PROVIDERS: Visit Provider Internal Medicine | DX: Z12.31 Encounter for screening mammogram for malignant neoplasm of breast (principal) | CPT/HCPCS: 77063; 77067 ==

== ENCOUNTER 2025-01-06 09:59 | Outpatient (AMB) | payer MEDICARE, MEDICAID, SELFPAY ==
--- NOTE | 2025-01-06 10:03 | MHC.PC.OV ---
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 Termite Required: No Accompanied by: Self / Same As Patient Allergies tramadol (TRAMADOL) Allergy (Severe, Verified 01/06/25 10:53) ANAPHYLAXIS ciprofloxacin (From CIPRO) Allergy (Intermediate, Verified 01/06/25 10:53) RENAL FUNCTION ISSUES Sulfa (Sulfonamide Antibiotics) Allergy (Unknown, Verified 01/06/25 10:53) Unknown Medication List - Last Reconciled 01/06/25 by Leticia Vega PA-C acetaminophen 1,000 mg (2 x 500 mg) PO Q6H PRN amlodipine 10 mg PO DAILY aspirin (Adult Low Dose Aspirin) 81 mg PO DAILY atorvastatin (Lipitor) 40 mg PO BEDTIME carbamide peroxide 6.5% (Debrox) 5 drps otic (ears) DAILY 4 days fluoxetine 20 mg PO DAILY furosemide 40 mg PO DAILY lisinopril 5 mg PO DAILY metoprolol tartrate 12.5 mg (1/2 x 25 mg) PO BID multivitamin 1 tab PO QAM Tobacco use date assessed: 01/06/25 Fall risk assessment: No Falls in past year Last assessed Fall Risk: 01/06/25 Dental Screening Dental Screen Date: 01/06/25 Did you have a dental visit in the last 12 months?: No Did you have a dental problem in the last 6 months where you did not have access to dental care?: No Was dental information given to patient?: No HPI ear cleaning and HLD HPI Details 74 year old female with past medical history of depression, chronic kidney disease, hypertension, hyperlipidemia, legally blind, diverticulosis, hyperparathyroidism last seen 10/2024 coming in for ear cleaning. She was recently seen by Cardiology 12/2024 ordered for Holter monitor and switch to atorvastatin. Presenting with hyperlipidemia and ear-related issues. The patient was switched from pravastatin to atorvastatin due to elevated cholesterol levels despite dietary efforts. The patient started atorvastatin recently and is scheduled for cholesterol retesting in a few months. The patient reported using ear drops for earwax impaction, which was confirmed during the visit. A fungal infection was identified in the ear, likely due to prolonged moisture from the wax. The patient has narrow ear canals, contributing to wax buildup. [facility] Medical History Arthritis Anxiety Kidney disease Elevated cholesterol Cervical cancer screening Post-menopausal Screening for colon cancer Screening for diabetes mellitus Hypertension Surgical History History of hand surgery Hx of bilateral cataract extraction Hx of eye surgery History of colonoscopy History of uterine fibroid H/O bilateral oophorectomy History of blepharoplasty History of removal of cyst Family History Father Hodgkin disease Mother Acute CVA (cerebrovascular accident) Sister Breast cancer Social History Household Members Other:: lives alone-disabled/ elderly community Housing: Apartment Alcohol intake: never Patient Tobacco Use Status: Never used Tobacco Tobacco use type: Cigarette e-Cigarette/Vaping Use: Never Used Second Hand Smoke Exposure: No service: No Current occupational status: disabled Cognitive needs: Yes (cane) Hearing needs: No Vision needs: Yes (Glasses) Questionnaire PHQ-9 Over the last 2 weeks, how often have you been bothered by any of the following problems? 1. Little interest or pleasure in doing things: several days 2. Feeling down, depressed, or hopeless: not at all 3. Trouble falling or staying asleep, or sleeping too much: not at all 4. Feeling tired or having little energy: not at all 5. Poor appetite or overeating: not at all 6. Feeling bad about yourself - or that you are a failure or have let yourself or your family down: not at all 7. Trouble concentrating on things, such as reading the newspaper or watching television: not at all 8. Moving or speaking so slowly that other people could have noticed. Or the opposite - being so fidgety or restless that you have been moving around a lot more than usual: not at all 9. Thoughts that you would be better off or of hurting yourself in some way: not at all Total score: 1 49898 - PHQ-9 Billing: Yes Source: Developed by Drs. Ann Christianson Kurt Kroenke and colleagues, with an educational hernandez from [employer] Thrive Questionnaire Date Thrive assessed: 07/03/24 I am a: Patient What is your living situation today?: I have a steady place to live Within the past 12 months, did the food you bought not last and you didn't have the money to get more?: Never true Within the past 12 months, did you worry whether your food would run out before you got money to buy more?: Never true Do you have trouble paying for medicines?: No Do you have trouble getting transportation to medical appointments?: Yes Do you have trouble paying your heating and electricity bill?: No Do you have trouble taking care of your child, family member or friend?: No Do you have trouble with day-to-day activities such as bathing, preparing meals, shopping, managing finances, etc.?: No Are you currently unemployed and looking for a job?: No Are you interested in more education?: No Please select the resources that you would like help with: None Currently or been in a relationship where the following occur: No concerns reported THRIVE Score: 1 AUDIT C Alcohol Use Questionnaire (AUDIT-C) 1. How often do you have a drink containing alcohol?: Never Total Score: 0 SAGAR-7 AMB Questionnaire SAGAR-7 Date SAGAR - 7 assessed: 07/03/24 Feeling nervous, anxious, or on edge: 0 = Not at all Not being able to stop or control worryin = Not at all Worrying too much about different things: 0 = Not at all Trouble relaxin = Not at all Being so restless that it is hard to sit still: 0 = Not at all Becoming easily annoyed or irritable: 0 = Not at all Feeling afraid as if something awful might happen: 0 = Not at all Total SAGAR-7 score (0-4 normal; 5-9 mild; 10-14 moderate; 15-21 severe): 0 Source: Developed by Drs. North Cazares, Vladimir Kee and colleagues, with an educational hernandez from [employer] Review of Systems Const Denies body aches, Denies chills, Denies fever(s), Denies headache(s) and Denies poor appetite Eyes Reports no additional complaints ENT Denies dizziness and Denies headache(s) Card Denies chest pain and Denies dyspnea Resp Denies dyspnea Musc Reports no additional complaints and Denies abnormal gait Skin/Breast Reports system reviewed and no additional complaints, except as documented Neuro Denies abnormal gait, Denies dizziness and Denies headache(s) Psych Reports no additional complaints Physical exam (Primary Care) Vital Signs: Last Vital Signs Pulse 68 01/06/25 10:05 BP 120/70 01/06/25 10:05 Pulse Ox 96 01/06/25 10:05 BMI result Body Mass Index 32.5 Tobacco/Smoking Status: Tobacco use Status Tobacco use date assessed 01/06/25 01/06/25 10:13 Patient Tobacco Use Status Never used Tobacco 01/06/25 10:13 Tobacco use type Cigarette 01/06/25 10:13 e-Cigarette/Vaping Use Never Used 01/06/25 10:13 PHQ-9: PHQ-9 Score PHQ-9: Total score 1 01/06/25 10:50 Thrive Assessment: Date of Thrive Assessment Date Thrive assessed 07/03/24 01/06/25 10:13 Currently or been in a relationship where the following occur: No concerns reported Const General: cooperative, healthy appearing, comfortable and no acute distress Orientation/consciousness: patient oriented x3 HENMT Head: Yes normocephalic Ears: hearing grossly normal bilaterally and Abnormal EAC present cerumen impaction bilateral General nose exam: Normal external nose present Eyes General: appearance normal, both eyes and all related structures Conjunctivae: conjunctivae normal Neck Neck: Yes full ROM and Yes no lymphadenopathy Resp Effort & Inspection: normal respiratory effort Auscultation: clear to auscultation bilaterally, no crackles, no rales, no rhonchi and no wheezes Cardio Rate: regular rate Rhythm: regular rhythm Skin General skin exam: no rashes or lesions noted Neuro General: patient oriented x3 Gait exam (Neuro): Normal gait present Extrem General: Yes normal to inspection, Yes full ROM and No edema Psych Affect: normal affect Attitude: cooperative Insight: Good insight present (Psych) Judgement: Good judgement present (Psych) Office Procedures Cerumen Removal From which ear canal was the cerumen removed: bilateral Removal: irrigation and cerumen loop/spoon Notes: patient tolerated procedure well, no complications and ear canal clear [id number] Irrigation/Lavage Coding Level of Care Code Est Pt Level 4 (78447) Diagnoses Primary hypertension I10 Hypertension type: primary hypertension BMI 32.0-32.9,adult Z68.32 Pure hypercholesterolemia E78.00 Hyperlipidemia type: pure hypercholesterolemia Cerumen impaction H61.20 Otitis externa H60.90 CPT Codes Office Procedure - CPT: 30215-Abu Irrigation/Lavage ([id number]) Additional Codes PHQ-9 - 09759 - PHQ-9 Billing: Yes ([id number]) Assessment & Plan Assessment & Plan (1) Hypertension: Code(s): I10 - Essential (primary) hypertension Category: Medical Qualifiers: Hypertension type: primary hypertension Qualified Code(s): I10 - Essential (primary) hypertension Plan: Continue on current blood pressure medication. Avoid salt intake and encourage healthy diet and regular exercise. (2) BMI 32.0-32.9,adult: Code(s): Z68.32 - Body mass index [BMI] 32.0-32.9, adult Category: Medical Plan: Healthy diet and regular exercise is encouraged. (3) Hyperlipidemia: Code(s): E78.5 - Hyperlipidemia, unspecified Category: Medical Qualifiers: Hyperlipidemia type: pure hypercholesterolemia Qualified Code(s): E78.00 - Pure hypercholesterolemia, unspecified Plan: Avoid foods that are high in cholesterol such as red meat, fried foods, eggs and baked goods. Triglyceride goal of less than 150 and LDL goal of less than 70. Recent switch to Atovastatin by cardiology and plan for repeat blood work. (4) Cerumen impaction: Code(s): H61.20 - Impacted cerumen, unspecified ear Category: Medical Plan: Bilateral ears were cleaned using combination of lighted curette and irrigation. Patient tolerated the procedure well and TMs were visualized as intact with well aerated middle ear spaces without retraction or perforation. Patient did initially have some dizziness after the procedure which resolved with rest. Left the room without complication in his denies any further dizziness. She will follow up as needed for this concern (5) Otitis externa: Code(s): H60.90 - Unspecified otitis externa, unspecified ear Category: Medical Plan: Patient found to have otitis externa of the left ear plan for antibiotic drops which has been sent to the pharmacy. Plan This note was constructed using voice recognition software. While every effort has been made to ensure accuracy and cullet washer, still areas may have been included sometimes these areas may affect the content or meeting of the given symptoms. Total time spent caring for the patient today was 30 minutes. This includes time spent before the visit reviewing the chart, time spent during the visit, and time spent after the visit and documentation. Patient was informed and verbally consented to the use of an ambient scribe for clinic note documentation during this visit. Medications: New hydrocortisone-acetic acid 1-2 % 4 drps otic (ear) left TID 10 mL 0RF Refilled multivitamin 1 tab PO QAM 90 tabs 0RF
[2025-01-06 10:05] VITALS: BP 120/70; PULSE 68; O2SAT 96; BMI 32.5
--- OUTSIDE RECORDS SUMMARY | 2025-01-06 10:45 | XMS_ITS | Encounter Summary ---
Author Organization [facility] Address [address] [place] [address] Phone Care Team Providers Care Assembling Fabricator Name Role Phone Jose Navarrete MD Primary Care Provider [phone] Reason for Visit * Reason Comments Med Refill Encounter Details Date Type Department Care Team (Late st Contact Info) Description 02/14/2023 Refill [facility] [address] [place] [address] Keyshawn Palmer MD Social History [...] on filedocumented in this encounter Care Teams Assembling Fabricator Relationship Specialty Start Date End Date Jose Navarrete MD [address] [place], [place] PCP - General 05/23/20 documented as of this encounter
--- OUTSIDE RECORDS SUMMARY | 2025-01-06 10:45 | XMS_ITS | Encounter Summary ---
Author Organization [facility] Address [address] [place] [address] Phone Care Team Providers Care Vp Digital Marketing Name Role Phone Jose Navarrete MD Primary Care Provider [phone] Encounter Details Date Type Department Care Team (Late st Contact Info) Description 08/15/2022 Telephone [facility] [address] [place] [address] Connie Fraire Social History Tobacco [...] on filedocumented in this encounter Care Teams Vp Digital Marketing Relationship Specialty Start Date End Date Jose Navarrete MD [address] [place], [place] PCP - General 05/23/20 documented as of this encounter
--- OUTSIDE RECORDS SUMMARY | 2025-01-06 10:45 | XMS_ITS | Encounter Summary ---
Author Organization [facility] Address [address] [address] Phone Care Team Providers Care Human Factors Scientist Name Role Phone Jose Navarrete MD Primary Care Provider [phone] Encounter Details Date Type Department Care Team (Late st Contact Info) Description 11/04/2024 Orders Only [facility]. [address] [address] Jerri Motatatianna [address] [facility] [address] [place] [address] Social History Tobacco Use Types [...] on filedocumented in this encounter Care Teams Human Factors Scientist Relationship Specialty Start Date End Date Jose Navarrete MD [address] [place], [place] PCP - General 05/23/20 documented as of this encounter
--- OUTSIDE RECORDS SUMMARY | 2025-01-06 10:45 | XMS_ITS | Clinical Summary ---
Author Organization [facility] Address [address] [facility] [address] [address] [address] [place] [address] Phone Care Team Providers Care Portfolio Administrator Name Role Phone Jose Navarrete MD Primary Care Provider [phone] Allergies Active Allergy Reactions Criticality Noted Date [...] 12/09/2024 Refill [facility] [address] [facility] 204 [place] [address] Denisse [place] 11/04/2024 Orders Only [facility] [address] [address] Henri Mota from Last 3 [...] Medicaid [place] Medicare Medicaid [place] Care Teams Portfolio Administrator Relationship Specialty Start Date End Date Jose Navarrete MD [address] [place] PCP - General 05/23/20
== END 2025-01-06 11:22 | disposition home or self-care (01) ==
LOC: HO.HMCH 09:59
PROVIDERS: PCP Internal Medicine
DX: I10 Essential (primary) hypertension (principal); Z68.32 Body mass index [BMI] 32.0-32.9, adult; E78.00 Pure hypercholesterolemia, unspecified; H60.92 Unspecified otitis externa, left ear; H61.22 Impacted cerumen, left ear

== ENCOUNTER → 2025-01-06 09:59 | Outpatient (BNVA) | payer MEDICARE, MEDICAID, SELFPAY | PROVIDERS: PCP Internal Medicine | DX: I10 Essential (primary) hypertension (principal); E78.00 Pure hypercholesterolemia, unspecified; H61.23 Impacted cerumen, bilateral; H60.92 Unspecified otitis externa, left ear | CPT/HCPCS: 69210; 96127; 99212 ==

== ENCOUNTER → 2025-01-08 10:01 | Outpatient (REF) | payer MEDICARE, MEDICAID, SELFPAY ==
--- NOTE | 2025-01-08 10:05 | HM_ITS ---
Conclusion: 1. Patient was monitored for total period of 3 days 2. Baseline was normal sinus rhythm with average heart of 53 beats per minute 3. No significant pauses noted but frequent sinus bradycardia noted with 84% of the time heart rate below 60 beats per minute 4. Occasional PACs and PVCs noted without any sustained arrhythmias 5. No patient reported events MTDD
--- OUTSIDE RECORDS SUMMARY | 2025-01-08 10:46 | XMS_ITS | Clinical Summary ---
Author Organization [facility] Address [address] [place] [address] Phone Care Team Providers Care Network Intern Name Role Phone Jose Navarrete MD Primary Care Provider [phone] Allergies Active Allergy Reactions Criticality Noted Date [...] 12/09/2024 Refill [facility] [address] [facility] [address] [place] [address] Denisse [place] 11/04/2024 Orders Only [facility] [address] [address] Henri Mota from Last 3 [...] Medicaid [place] Medicare Medicaid [place] Care Teams Network Intern Relationship Specialty Start Date End Date Jose Navarrete MD [address] [place] PCP - General 05/23/20
--- OUTSIDE RECORDS SUMMARY | 2025-01-08 10:46 | XMS_ITS | Encounter Summary ---
Author Organization [facility] Address [address] [address] Phone Care Team Providers Care Supervisor Train Operations Name Role Phone Jose Navarrete MD Primary Care Provider [phone] Encounter Details Date Type Department Care Team (Late st Contact Info) Description 11/04/2024 Orders Only [facility]. [address] [address] Jerri Motatatianna [address] [facility] [address] [place] [address] Social History Tobacco Use Types [...] on filedocumented in this encounter Care Teams Supervisor Train Operations Relationship Specialty Start Date End Date Jose Navarrete MD [address] [place], [place] PCP - General 05/23/20 documented as of this encounter
--- OUTSIDE RECORDS SUMMARY | 2025-01-08 10:46 | XMS_ITS | Encounter Summary ---
Author Organization [facility] Address [address] [place] [address] Phone Care Team Providers Care Tree Killer Name Role Phone Jose Navarrete MD Primary Care Provider Encounter Details Date Type Department Care Team (Late st Contact Info) Description 08/15/2022 Telephone [facility] [address] [place] [address] Connie Fraire Social History Tobacco [...] on filedocumented in this encounter Care Teams Tree Killer Relationship Specialty Start Date End Date Jose Navarrete MD [address] [place], [place] PCP - General 05/23/20 documented as of this encounter
--- OUTSIDE RECORDS SUMMARY | 2025-01-08 10:46 | XMS_ITS | Encounter Summary ---
Author Organization [facility] Address [address] [place] [address] Phone Care Team Providers Care Hr Clerk Name Role Phone Jose Navarrete MD Primary Care Provider [phone] Reason for Visit * Reason Comments Med Refill Encounter Details Date Type Department Care Team (Late st Contact Info) Description 02/14/2023 Refill [facility] [address] [place] [address] Keyshawn Palmer MD Social History [...] on filedocumented in this encounter Care Teams Hr Clerk Relationship Specialty Start Date End Date Jose Navarrete MD [address] [place], [place] PCP - General 05/23/20 documented as of this encounter
== END ==
LOC: HO.CARD 10:01
PROVIDERS: Visit Provider Nurse Practitioner Family
DX: R00.1 Bradycardia, unspecified (principal)
CPT/HCPCS: 93242

== ENCOUNTER → 2025-01-08 10:05 | Outpatient (BNV) | payer MEDICARE, MEDICAID, SELFPAY | PROVIDERS: Visit Provider Internal Medicine Cardiovascular Disease | DX: I49.1 Atrial premature depolarization (principal); I49.3 Ventricular premature depolarization | CPT/HCPCS: 93244 ==

== ENCOUNTER 2025-04-27 12:57 | Outpatient (REF) | payer MEDICARE, SELFPAY ==
[2025-04-27 14:50] LABS: Anion Gap 16 (12-20); Blood Urea Nitrogen 20 mg/dL (9-16); Calcium 10.3 mg/dL (8.4-10.2); Carbon Dioxide 25 mmol/L (22-29); Chloride 105 mmol/L (96-108); Estimated Glomerular Filt Rate 41; Potassium 4.5 mmol/L (3.3-5.1); Sodium 141 mmol/L (135-145)
[2025-04-27 14:51] LABS: Parathyroid Hormone Intact 133.3 pg/mL (8.7-77.1)
== END 2025-04-27 12:58 | disposition home or self-care (01) ==
LOC: HO.LAB 12:57
PROVIDERS: Visit Provider Internal Medicine Nephrology
DX: I12.9 Hypertensive chronic kidney disease with stage 1 through stage 4 chronic kidney disease, or unspecified chronic kidney disease (principal); N18.31 Chronic kidney disease, stage 3a; E21.0 Primary hyperparathyroidism
CPT/HCPCS: 36415; 80051; 82306; 82310; 82565; 83970; 84100; 84520

== ENCOUNTER 2025-05-04 10:39 | Outpatient (REF) | payer MEDICARE, SELFPAY ==
--- OUTSIDE RECORDS SUMMARY | 2025-05-04 11:59 | XMS_ITS | Encounter Summary ---
Author Organization [facility] Address [address] [place] [address] Phone Care Team Providers Care Tactical Intelligence Officer Name Role Phone Jose Navarrete MD Primary Care Provider [phone] Reason for Visit * Reason Comments Med Refill Encounter Details Date Type Department Care Team (Late st Contact Info) Description 02/14/2023 Refill [facility] [address] [place] [id number] Keyshawn Palmer MD [address] [place] [address] Social History Tobacco Use Types Packs/Day Years [...] on filedocumented in this encounter Care Teams Tactical Intelligence Officer Relationship Specialty Start Date End Date Jose Navarrete MD [address] [place], [place] PCP - General 05/23/20 documented as of this encounter
--- OUTSIDE RECORDS SUMMARY | 2025-05-04 11:59 | XMS_ITS | Clinical Summary ---
Author Organization [facility] Address [address] [facility] [address] [place] [address] Phone Care Team Providers Care Business Solutions Consultant Name Role Phone Jose Navarrete MD Primary Care Provider [phone] Allergies Active Allergy Reactions Criticality Noted Date [...] age to complete [place] [address] Medicaid [place] , [address] [id number] Medicare Medicaid [place] Care Teams Business Solutions Consultant Relationship Specialty Start Date End Date Jose Navarrete MD [address] [place], [place] PCP - General 05/23/20
--- OUTSIDE RECORDS SUMMARY | 2025-05-04 11:59 | XMS_ITS | Encounter Summary ---
Author Organization [facility] Address [address] [place] [address] Phone Care Team Providers Care Knockout Machine Operator Name Role Phone Jose Navarrete MD Primary Care Provider [phone] Encounter Details Date Type Department Care Team (Late st Contact Info) Description 08/15/2022 Telephone [facility] [address] [place] [address] Connie Fraire Social History Tobacco [...] on filedocumented in this encounter Care Teams Knockout Machine Operator Relationship Specialty Start Date End Date Jose Navarrete MD [address] [place], [place] PCP - General 05/23/20 documented as of this encounter
--- OUTSIDE RECORDS SUMMARY | 2025-05-04 11:59 | XMS_ITS | Encounter Summary ---
Author Organization [facility] Address [address] [address] Phone Care Team Providers Care Acetylene Gas Compressor Name Role Phone Jose Navarrete MD Primary Care Provider [phone] Encounter Details Date Type Department Care Team (Late st Contact Info) Description 11/04/2024 Orders Only [facility]. [address] [address] Jerri Motatatianna [address] [facility] 204 [place] [address] Social History Tobacco Use Types [...] on filedocumented in this encounter Care Teams Acetylene Gas Compressor Relationship Specialty Start Date End Date Jose Navarrete MD [address] [place], [place] PCP - General 05/23/20 documented as of this encounter
[2025-05-04 12:30] LABS: Alanine Aminotransferase 21 U/L (0-31); Albumin Level 4.5 g/dL (3.5-5.0); Alkaline Phosphatase 167 U/L (39-117); Anion Gap 15 (12-20); Aspartate Amino Transferase 21 U/L (5-31); Blood Urea Nitrogen 30 mg/dL (9-16); Calcium 10.1 mg/dL (8.4-10.2); Carbon Dioxide 23 mmol/L (22-29); Chloride 110 mmol/L (96-108); Cholesterol 232 mg/dL (<200); Estimated Glomerular Filt Rate 44; HDL Cholesterol 38 mg/dL (>40); Potassium 4.1 mmol/L (3.3-5.1); Sodium 144 mmol/L (135-145); Total Protein 7.5 g/dL (6.5-8.0); Triglycerides 177 mg/dL (<150)
== END 2025-05-04 10:40 | disposition home or self-care (01) ==
LOC: HO.LAB 10:39
DX: Z00.00 Encounter for general adult medical examination without abnormal findings (principal); E21.0 Primary hyperparathyroidism; E78.00 Pure hypercholesterolemia, unspecified
CPT/HCPCS: 36415; 80053; 80061

== ENCOUNTER 2025-05-05 09:18 | Outpatient (AMB) | payer MEDICARE, SELFPAY ==
--- NOTE | 2025-05-05 09:21 | MHC.PC.OV ---
Vital Signs 05/05/25 09:23 Height 5 ft 2 in Weight 173 lb BMI 31.6 BP 122/58 L Blood Pressure Location Lt brachial Position Sitting Respiration 18 Pulse 76 Pulse Source Pulse Oximeter Temp 97.5 F Temp Source Temporal Artery Scan Pulse Oximetry (%) 97 Oxygen Delivery Method Room Air Intake Visit Reasons: 3 mo f/u HLD Sawsmith Required: No Accompanied by: Self / Same As Patient Allergies tramadol (TRAMADOL) Allergy (Severe, Verified 05/05/25 09:37) ANAPHYLAXIS ciprofloxacin (From CIPRO) Allergy (Intermediate, Verified 05/05/25 09:37) RENAL FUNCTION ISSUES Sulfa (Sulfonamide Antibiotics) Allergy (Unknown, Verified 05/05/25 09:37) Unknown Medication List - Last Reconciled 05/05/25 by Leticia Vega PA-C acetaminophen 1,000 mg (2 x 500 mg) PO Q6H PRN amlodipine 10 mg PO DAILY aspirin (Adult Low Dose Aspirin) 81 mg PO DAILY atorvastatin (Lipitor) 40 mg PO BEDTIME blood pressure kit-extra large As directed compr.stocking,knee,long,large As directed; 15-20 mmHg fluoxetine 20 mg PO DAILY furosemide 40 mg PO DAILY lisinopril 5 mg PO DAILY multivitamin 1 tab PO QAM Tobacco use date assessed: 01/06/25 Fall risk assessment: No Falls in past year Last assessed Fall Risk: 05/05/25 Dental Screening Dental Screen Date: 01/06/25 HPI 3 mo f/u HLD HPI Details 74 year old female with past medical history of depression, chronic kidney disease, hypertension, hyperlipidemia, legally blind, diverticulosis, hyperparathyroidism last seen 12/2024 coming in for follow up. In review of the notes, patient completed holter monitor which revealed bradycardia discontinued the metoprolol and advised to check BP at home. Presenting for management of chronic conditions, including hypertension and hyperlipidemia. She was recently taken off metoprolol by her coating engineer after a Holter monitor evaluation, as it was causing her heart rate to drop into the 40s. Regarding hypertension, the patient has not been checking her blood pressure at home because the monitor she was sent is not an audio one, which she has difficulty reading. Her blood pressure in the office today was good. For hyperlipidemia, her recent lab work showed improvement but numbers are not yet at goal. Her triglycerides decreased to 177 from 246, her bad cholesterol decreased to 159 from 193, and her good cholesterol was 38. Her coating engineer's goal for bad cholesterol is less than 70. She has not had any side effects from her atorvastatin 40 mg. Her recent fasting blood sugar was slightly elevated at 123, prompting concern for prediabetes. [facility] Medical History Arthritis Anxiety Kidney disease Elevated cholesterol Cervical cancer screening Post-menopausal Screening for colon cancer Screening for diabetes mellitus Hypertension Surgical History History of hand surgery Hx of bilateral cataract extraction Hx of eye surgery History of colonoscopy History of uterine fibroid H/O bilateral oophorectomy History of blepharoplasty History of removal of cyst Family History Father Hodgkin disease Mother Acute CVA (cerebrovascular accident) Sister Breast cancer Social History Household Members Other:: lives alone-disabled/ elderly community Housing: Apartment Alcohol intake: never Patient Tobacco Use Status: Never used Tobacco Tobacco use type: Cigarette e-Cigarette/Vaping Use: Never Used Second Hand Smoke Exposure: No service: No Current occupational status: disabled Cognitive needs: Yes (cane) Hearing needs: No Vision needs: Yes (Glasses) Questionnaire Thrive Questionnaire Date Thrive assessed: 01/06/25 I am a: Patient What is your living situation today?: I have a steady place to live Within the past 12 months, did the food you bought not last and you didn't have the money to get more?: Never true Within the past 12 months, did you worry whether your food would run out before you got money to buy more?: Never true Do you have trouble paying for medicines?: No Do you have trouble getting transportation to medical appointments?: Yes Do you have trouble paying your heating and electricity bill?: No Do you have trouble taking care of your child, family member or friend?: No Do you have trouble with day-to-day activities such as bathing, preparing meals, shopping, managing finances, etc.?: No Are you currently unemployed and looking for a job?: No Are you interested in more education?: No Currently or been in a relationship where the following occur: No concerns reported THRIVE Score: 1 SAGAR-7 AMB Questionnaire SAGAR-7 Date SAGAR - 7 assessed: 07/03/24 Source: Developed by Drs. North Cazares, Ann Mccall, Vladimir Malone and colleagues, with an educational hernandez from [employer]. Review of Systems Const Denies body aches, Denies chills, Denies fever(s), Denies headache(s) and Denies poor appetite Eyes Reports no additional complaints ENT Denies dysphagia, Denies dizziness, Denies headache(s) and Denies odynophagia Card Denies chest pain, Denies syncope, Denies edema, Denies irregular heart rhythm, Denies lightheadedness and Denies dyspnea Resp Denies cough and Denies dyspnea GI Denies abdominal pain, Denies constipation, Denies dysphagia, Denies diarrhea, Denies nausea, Denies odynophagia and Denies vomiting Reports no additional complaints Musc Reports no additional complaints and Denies abnormal gait Skin/Breast Reports system reviewed and no additional complaints, except as documented Neuro Denies abnormal gait, Denies dizziness, Denies syncope and Denies headache(s) Psych Reports no additional complaints Physical exam (Primary Care) Vital Signs: Last Vital Signs Temp 97.5 F 05/05/25 09:23 Pulse 76 05/05/25 09:23 Resp 18 05/05/25 09:23 BP 122/58 L 05/05/25 09:23 Pulse Ox 97 05/05/25 09:23 Oxygen Delivery Method Room Air 05/05/25 09:23 BMI result Body Mass Index 31.6 Tobacco/Smoking Status: Tobacco use Status Tobacco use date assessed 01/06/25 05/05/25 09:24 Patient Tobacco Use Status Never used Tobacco 05/05/25 09:24 Tobacco use type Cigarette 05/05/25 09:24 e-Cigarette/Vaping Use Never Used 05/05/25 09:24 Thrive Assessment: Date of Thrive Assessment Date Thrive assessed 01/06/25 05/05/25 09:24 Currently or been in a relationship where the following occur: No concerns reported Const General: cooperative, healthy appearing, comfortable and no acute distress Orientation/consciousness: patient oriented x3 HENMT Head: Yes normocephalic Ears: hearing grossly normal bilaterally General nose exam: Normal external nose present Eyes General: appearance normal, both eyes and all related structures Conjunctivae: conjunctivae normal Neck Neck: Yes full ROM and Yes no lymphadenopathy Resp Effort & Inspection: normal respiratory effort Auscultation: clear to auscultation bilaterally, no crackles, no rales, no rhonchi and no wheezes Cardio Rate: regular rate Rhythm: regular rhythm Skin General skin exam: no rashes or lesions noted Neuro General: patient oriented x3 Gait exam (Neuro): Normal gait present Extrem General: Yes normal to inspection, Yes full ROM and No edema Psych Affect: normal affect Attitude: cooperative Insight: Good insight present (Psych) Judgement: Good judgement present (Psych) Results AMB Hemoglobin A1c AMB Hemoglobin A1c 5.6 % Last Edit by Annie Armendariz MA on 05/05/25 10:09 Results Reviewed Results Reviewed: Laboratory Last Values Hgb A1c (Clinic) 5.6 % (4.0-6.0) 05/05/25 10:07 Coding Level of Care Code Est Pt Level 3 (13451) Diagnoses Primary hypertension I10 Hypertension type: primary hypertension BMI 32.0-32.9,adult Z68.32 Pure hypercholesterolemia E78.00 Hyperlipidemia type: pure hypercholesterolemia Sinus bradycardia R00.1 Stage 3a chronic kidney disease N18.31 Chronic kidney disease stage 3 subtype: stage 3a (GFR 45-59) Elevated fasting blood sugar R73.01 Assessment & Plan Assessment & Plan (1) Hypertension: Code(s): I10 - Essential (primary) hypertension Category: Medical Qualifiers: Hypertension type: primary hypertension Qualified Code(s): I10 - Essential (primary) hypertension Plan: Continue on current blood pressure medication. Avoid salt intake and encourage healthy diet and regular exercise. The patient's blood pressure is well-controlled, and her heart rate is now normal at 76 bpm after discontinuing metoprolol. We will continue to hold the metoprolol. A new prescription for a blood pressure monitor with audio capability will be sent to the pharmacy to facilitate home monitoring. She will follow up with her coating engineer in June. (2) BMI 32.0-32.9,adult: Code(s): Z68.32 - Body mass index [BMI] 32.0-32.9, adult Category: Medical Plan: The patient has successfully lost 4 pounds and is motivated to continue. She participates in a weight loss group and uses an at-home exercise device. A reasonable goal of losing 10-15 pounds over the next year was established. She was provided with a note for her weigh loss group to document this goal. Healthy diet and regular exercise is encouraged. (3) Hyperlipidemia: Code(s): E78.5 - Hyperlipidemia, unspecified Category: Medical Qualifiers: Hyperlipidemia type: pure hypercholesterolemia Qualified Code(s): E78.00 - Pure hypercholesterolemia, unspecified Plan: Avoid foods that are high in cholesterol such as red meat, fried foods, eggs and baked goods. Triglyceride goal of less than 150 and LDL goal of less than 70. LDL is still not at goal but has been improving plan to increase Atorvastatin to 80mg and repeat labs in 3 months. The patient's cholesterol has improved but remains above the goal set by her coating engineer, particularly the bad cholesterol. She denies any side effects from her current atorvastatin 40 mg. Therefore, the atorvastatin will be increased to 80 mg daily. The patient was counseled on dietary changes, including reducing sweets and carbohydrates. Labs will be rechecked in three months. (4) Sinus bradycardia: Comment: Stable and she is asymptomatic. Code(s): R00.1 - Bradycardia, unspecified Category: Medical Plan: Heart rate has improved since d/c of the Metoprolol. Blood pressure has remained stable. She will continue to hold at this time and follow up with cardiology. (5) CKD (chronic kidney disease) stage 3, GFR 30-59 ml/min: Code(s): N18.30 - Chronic kidney disease, stage 3 unspecified Category: Medical Qualifiers: Chronic kidney disease stage 3 subtype: stage 3a (GFR 45-59) Qualified Code(s): N18.31 - Chronic kidney disease, stage 3a Plan: Continue to follow with nephrology. Avoid kidney irritants such as NSAIDs and stay well hydrated. (6) Elevated fasting blood sugar: Code(s): R73.01 - Impaired fasting glucose Category: Medical Plan: A recent fasting blood sugar was elevated at 123, just below the diagnostic threshold for diabetes. An in-office A1c was performed today and the result was 5.6%, which is normal and rules out diabetes. Despite the normal A1c, the patient was counseled extensively on the importance of dietary modifications to prevent the future development of diabetes, including avoiding sweets and refined carbohydrates. Monitoring will continue with labs in three months. Plan This note was constructed using voice recognition software. While every effort has been made to ensure accuracy and grader green meat, still areas may have been included sometimes these areas may affect the content or meeting of the given symptoms. Total time spent caring for the patient today was 20 minutes. This includes time spent before the visit reviewing the chart, time spent during the visit, and time spent after the visit and documentation. Patient was informed and verbally consented to the use of an ambient scribe for clinic note documentation during this visit. Orders: Orders AMB Hemoglobin A1c Today Z13.9 - Encounter for screening, unspecified Lipid Panel 3 Months E78.00 - Pure hypercholesterolemia, unspecified Hemoglobin A1c 3 Months E11.65 - Type 2 diabetes mellitus with hyperglycemia Medications: New atorvastatin (Lipitor) 80 mg PO BEDTIME 90 tabs 0RF Changed From blood pressure kit-extra large As directed 1 ea 0RF hypertension H54.8 - Legal blindness, as defined in [place], I10 - Essential (primary) hypertension To blood pressure kit-extra large As directed; requires audio reading 1 ea 0RF hypertension H54.8 - Legal blindness, as defined in [place], I10 - Essential (primary) hypertension Refilled multivitamin 1 tab PO QAM 90 tabs 0RF Discontinued atorvastatin (Lipitor) change to bedtime stop pravastatin Discontinued Reason: Patient no longer taking 40 mg PO BEDTIME 90 tabs 1RF
[2025-05-05 09:23] VITALS: BP 122/58; PULSE 76; RESP 18; TEMP 36.4; O2SAT 97; BMI 31.6
--- OUTSIDE RECORDS SUMMARY | 2025-05-05 09:23 | XMS_ITS | Encounter Summary ---
Author Organization [facility] Address [address] [address] Phone Care Team Providers Care Excavating Supervisor Name Role Phone Jose Navarrete MD Primary Care Provider [phone] Encounter Details Date Type Department Care Team (Late st Contact Info) Description 11/04/2024 Orders Only [facility]. [address] [address] Jerri Motatatianna [address] [facility] [address] [place] [address] Social History Tobacco Use Types [...] on filedocumented in this encounter Care Teams Excavating Supervisor Relationship Specialty Start Date End Date Jose Navarrete MD [address] [place], [place] PCP - General 05/23/20 documented as of this encounter
--- OUTSIDE RECORDS SUMMARY | 2025-05-05 09:23 | XMS_ITS | Clinical Summary ---
Author Organization [facility] Address [address] [place] [address] Phone Care Team Providers Care Senior Sas Developer Name Role Phone Jose Navarrete MD Primary Care Provider [phone] Allergies Active Allergy Reactions Criticality Noted Date [...] to complete [place] [id number] Medicaid [place] , [address] [id number] Medicare Medicaid [place] Care Teams Senior Sas Developer Relationship Specialty Start Date End Date Jose Navarrete MD [address] [place], [place] PCP - General 05/23/20
--- OUTSIDE RECORDS SUMMARY | 2025-05-05 09:23 | XMS_ITS | Encounter Summary ---
Author Organization [facility] Address [address] [place] [address] Phone Care Team Providers Care Cell Tuber Hand Name Role Phone Jose Navarrete MD Primary Care Provider [phone] Encounter Details Date Type Department Care Team (Late st Contact Info) Description 08/15/2022 Telephone [facility] [address] [place] [address] Connie Fraire Social History Tobacco [...] on filedocumented in this encounter Care Teams Cell Tuber Hand Relationship Specialty Start Date End Date Jose Navarrete MD [address] [place], [place] PCP - General 05/23/20 documented as of this encounter
--- OUTSIDE RECORDS SUMMARY | 2025-05-05 09:23 | XMS_ITS | Encounter Summary ---
Author Organization [facility] Address [address] [place] [address] Phone Care Team Providers Care Dynamometer Tester Engine Name Role Phone Jose Navarrete MD Primary Care Provider [phone] Reason for Visit * Reason Comments Med Refill Encounter Details Date Type Department Care Team (Late st Contact Info) Description 02/14/2023 Refill [facility] [address] [place] [id number] Keyshawn Palmer MD [address] [place] [id number] Social History Tobacco Use Types Packs/Day Years [...] on filedocumented in this encounter Care Teams Dynamometer Tester Engine Relationship Specialty Start Date End Date Jose Navarrete MD [address] [place], [place] PCP - General 05/23/20 documented as of this encounter
== END 2025-05-05 10:08 | disposition home or self-care (01) ==
LOC: HO.HMCH 09:19
DX: N18.31 Chronic kidney disease, stage 3a (principal); I10 Essential (primary) hypertension; Z68.31 Body mass index [BMI] 31.0-31.9, adult; E66.811 Obesity, class 1; E78.00 Pure hypercholesterolemia, unspecified; R00.1 Bradycardia, unspecified; R73.01 Impaired fasting glucose; Z13.9 Encounter for screening, unspecified

== ENCOUNTER → 2025-05-05 09:18 | Outpatient (BNVA) | payer MEDICARE, SELFPAY | DX: I12.9 Hypertensive chronic kidney disease with stage 1 through stage 4 chronic kidney disease, or unspecified chronic kidney disease (principal); N18.31 Chronic kidney disease, stage 3a; Z68.31 Body mass index [BMI] 31.0-31.9, adult; E78.00 Pure hypercholesterolemia, unspecified; R00.1 Bradycardia, unspecified; R73.01 Impaired fasting glucose | CPT/HCPCS: 83036; 99212 ==